=== PATIENT | male | born 1955 | race Caucasian/White ===

== ENCOUNTER → 2023-05-27 12:01 | Outpatient (CLI) | payer MEDICARE, SELFPAY ==
--- NOTE | ~2023-05-27 | XR_ITS ---
XR finger 4th LT min 2V DATE: 05/27/2023 12:21 INDICATION: Swelling at proximal interphalangeal joint. No injury. TECHNIQUE: 4 views COMPARISON: None FINDINGS: There is soft tissue swelling centered at the proximal interphalangeal joint. Erosions are suggested at the anterior base of the middle phalanx and posterolateral aspect of the he ad of the proximal phalanx. Proximal interphalangeal joint space is still intact. No fracture or dislocation, periosteal reaction or bone destruction is noted otherwise. No radiopaque soft tissue foreign body or subcutaneous emphysema. IMPRESSION: Soft tissue swelling of fourth digit centered at the PIP joint Erosive changes of the head of the proximal phalanx and base of the middle phalanx; consider erosive arthropathy, gout, less likely infection (due to intact joint space). Reviewed, dictated and finalized at location B. IMPRESSION: Soft tissue swelling of fourth digit centered at the PIP joint Erosive changes of the head of the proximal phalanx and base of the middle phal anx; consider erosive arthropathy, gout, less likely infection (due to intact j oint space).
== END ==
PROVIDERS: PCP Physician Assistant; Visit Provider Physician Assistant
DX: M79.89 Other specified soft tissue disorders (principal)
CPT/HCPCS: 73140

== ENCOUNTER 2023-09-09 06:44 | Day surgery (SDC) | payer MEDICARE, SELFPAY ==
[2023-08-26 11:06] VITALS: BMI 28.8
--- NOTE | 2023-08-30 09:13 | PC.NURSE ---
Spoke with patient regarding medication PLAVIX. Pt. verbalizes understanding that the last dose of PLAVIX is to be taken on 09/04/2023, the Endoscopist will instruct them when to restart after the procedure.
--- NOTE | 2023-09-07 14:20 | SUR.PREOP ---
Patient called regarding upcoming procedure. Reviewed preop instructions, appointment times, and procedure prep.
[2023-09-09 07:11] LABS: Glucose Point of Care 89 mg/dl (65-105)
[2023-09-09 07:14] VITALS: BP 139/75; PULSE 73; RESP 18; TEMP 36.1; O2SAT 100
[2023-09-09] MEDS: LACTATED RINGERS 1,000 ML 150 ML IV CONT (07:16)
[2023-09-09] MEDS: GENTAMICIN 80MG/SOD CHL 50 ML 80 MG/50 ML BAG 100 MG IVPB (07:17)
--- NOTE | 2023-09-09 07:38 | WPDANESEPPF ---
Anes - Initial Pre Proc Eval Procedure: Operation Date: 09/09/23 08:00 Proposed Procedures p Colonoscopy - Omega De La Fuente MD Date/Time: 09/09/23 07:38 Surgeon: Omega De La Fuente MD Pre Op Diagnosis: neoplasm screening Patient Data Age: 68 Gender: M Height: 1.78 m Weight: 88 kg Last Vital Signs Temp 97 F L 09/09/23 07:14 Pulse 73 09/09/23 07:14 Resp 18 09/09/23 07:14 BP 139/75 09/09/23 07:14 Pulse Ox 100 09/09/23 07:14 O2 Del Method Room Air 09/09/23 07:14 Allergies Allergy/AdvReac Type Severity Reaction Status Date / Time aspirin Allergy Severe Swelling Verified 09/09/23 07:10 of Lip/Tongue/Throat Home Medications Medication Instructions Recorded Confirmed Type carvedilol 6.25 mg tablet 6.25 mg PO BID 08/26/23 08/26/23 History clopidogrel 75 mg tablet 75 mg PO QAM 08/26/23 08/26/23 History empagliflozin 10 mg tablet 10 mg PO QAM 08/26/23 08/26/23 History (Jardiance) ferrous sulfate 325 mg (65 mg 325 mg PO 2XW 08/26/23 08/26/23 History iron) tablet (Iron (ferrous sulfate)) fluticasone furoate 100 1 inh inhalation QPM 08/26/23 08/26/23 History mcg-vilanterol 25 mcg/dose inhalation powder (Breo Ellipta) furosemide 40 mg tablet 40 mg PO QAM 08/26/23 08/26/23 History insulin degludec 100 unit/mL (3 22 unit subcut QA 08/26/23 08/26/23 History mL) subcutaneous pen isosorbide mononitrate 30 mg 30 mg PO DAILY 08/26/23 08/26/23 History tablet,extended release 24 hr levothyroxine 50 mcg tablet 50 mcg PO USEASDIRECTD 08/26/23 08/26/23 History loperamide 2 mg tablet 2 mg PO HS 08/26/23 08/26/23 History (Anti-Diarrheal (loperamide)) vfhmrxck-shhumujr-rxlwc acid 400 1 tablet PO DAILY 08/26/23 08/26/23 History mcg-vit K 20 mcg-lycop 300 mcg tablet (One-A-Day Men's Multivitamin) primidone 50 mg tablet 100 mg PO QPM 08/26/23 08/26/23 History primidone 50 mg tablet 150 mg PO QAM 08/26/23 08/26/23 History rosuvastatin 20 mg tablet 20 mg PO QPM 08/26/23 08/26/23 History topiramate 50 mg tablet 50 mg PO BID 08/26/23 08/26/23 History valsartan 320 mg tablet 320 mg PO DAILY 08/26/23 08/26/23 History Laboratory Tests 09/09/23 07:08 POC Capillary Glucose 89 mg/dl (65-105) Patient hx anesthesia problems: none Family hx anesthesia problems: none Results Review: All pre-operative results and documents have been reviewed as part of the pre-operative evaluation. [facility] Social History Social History Smoking status: Never smoker Alcohol intake: current Substance use: never Substance use type: does not use Living arrangements: with family Spiritual care concerns: No Anes - Eval Final PreProcedure Day of Procedure 09/09/23 07:38 Patient weight: normal Heart: regular rate and rhythm Lungs: clear to auscultation Airway: Mallampati scale class II Neurological: alert and oriented Last oral intake: >/= 8 hours ASA classification: III Emergent: no Anesthetic plan: proceed Anesthesia type and monitoring: general GIVS and standard monitoring Results Review: All pre-operative results and documents have been reviewed as part of the pre-operative evaluation. Informed Consent: The patient's anesthetic plan and its attendant risks and benefits were discussed with the patient/family/POA. Questions were solicited and answers provided to the satisfaction of the patient/family/POA.
[2023-09-09] MEDS: AMPICILLIN 2 GM/NS 100 ML 2 GM/100 ML BAG IVPB (08:00)
--- NOTE | 2023-09-09 08:08 | PM.HPGS ---
History of Present Illness History of Present Illness Consent: Risks, benefits, and alternatives have been discussed and questions answered. Patient agrees to proceed with procedure. Chief complaint: neoplasm screening Narrative: Mikael Rob is a 68 year old male with colon polyp 5 years ago Review of Systems Constitutional: Constitutional: Denies headache(s) and Denies weakness Eyes: Eyes: Denies blurry vision ENT: Reports Normal hearing present, Denies headache(s) and Denies neck pain Cardiovascular: Cardiovascular: Denies chest pain and Denies dyspnea Respiratory: Respiratory: Denies dyspnea Gastrointestinal: Gastrointestinal: Reports no additional gastrointestinal complaints Genitourinary: Genitourinary: Denies dysuria Musculoskeletal: Musculoskeletal: Denies neck pain Integumentary/Breasts: Skin/Breast: Denies dry skin Neurologic: Reports Normal hearing present, Denies headache(s) and Denies weakness Psychiatric: Psychiatric: Denies anxiety Endocrine: Endocrine: Denies change in body appearance Hematologic/Lymphatic: Hematologic/Lymphatic: Denies easy bleeding Allergic/Immunologic: Allergic/Immunologic: Denies urticaria [facility] Past Medical History Medical History (Updated 09/09/23 @ 08:09 by Omega De La Fuente MD) Colon polyp Social History Social History Smoking status: Never smoker Alcohol intake: current Substance use: never Substance use type: does not use Living arrangements: with family Spiritual care concerns: No Meds Home Medications and Allergies Home Medications Medication Instructions Recorded Confirmed Type carvedilol 6.25 mg tablet 6.25 mg PO BID 08/26/23 08/26/23 History clopidogrel 75 mg tablet 75 mg PO QAM 08/26/23 08/26/23 History empagliflozin 10 mg tablet 10 mg PO QAM 08/26/23 08/26/23 History (Jardiance) ferrous sulfate 325 mg (65 mg 325 mg PO 2XW 08/26/23 08/26/23 History iron) tablet (Iron (ferrous sulfate)) fluticasone furoate 100 1 inh inhalation QPM 08/26/23 08/26/23 History mcg-vilanterol 25 mcg/dose inhalation powder (Breo Ellipta) furosemide 40 mg tablet 40 mg PO QAM 08/26/23 08/26/23 History insulin degludec 100 unit/mL (3 22 unit subcut QAM 08/26/23 08/26/23 History mL) subcutaneous pen isosorbide mononitrate 30 mg 30 mg PO DAILY 08/26/23 08/26/23 History tablet,extended release 24 hr levothyroxine 50 mcg tablet 50 mcg PO USEASDIRECTD 08/26/23 08/26/23 History loperamide 2 mg tablet 2 mg PO HS 08/26/23 08/26/23 History (Anti-Diarrheal (loperamide)) mkoucucs-rqizlocc-wntvb acid 400 1 tablet PO DAILY 08/26/23 08/26/23 History mcg-vit K 20 mcg-lycop 300 mcg tablet (One-A-Day Men's Multivitamin) primidone 50 mg tablet 100 mg PO QPM 08/26/23 08/26/23 History primidone 50 mg tablet 150 mg PO QAM 08/26/23 08/26/23 History rosuvastatin 20 mg tablet 20 mg PO QPM 08/26/23 08/26/23 History topiramate 50 mg tablet 50 mg PO BID 08/26/23 08/26/23 History valsartan 320 mg tablet 320 mg PO DAILY 08/26/23 08/26/23 History Allergies Allergy/AdvReac Type Severity Reaction Status Date / Time aspirin Allergy Severe Swelling Verified 09/09/23 07:10 of Lip/Tongue/Throat Vital Signs Vital Signs - 24 hr 09/09/23 07:14 Temperature 97 F L Pulse Rate 73 Respiratory Rate 18 Blood Pressure 139/75 Pulse Oximetry 100 Oxygen Delivery Room Air Exam Const: General: comfortable and no acute distress HENMT: Face/Nose/Sinus: Normal nares present Eyes: General: appearance normal, both eyes and all related structures Neck: Neck: no JVD Resp: Auscultation: clear to auscultation bilaterally Cardio: Rate: regular rate Rhythm: regular rhythm GI: Inspection: non-distended GI Palp: Yes Soft to palpation Skin: General skin exam: normal color Neuro: General: gait normal Speech: normal speech Extrem: General: normal to inspection Psych: Mental Status: mental status grossly
[2023-09-09 08:32] VITALS: BP 98/61; PULSE 72; RESP 19; O2SAT 100
[2023-09-09 08:42] VITALS: BP 106/63; PULSE 65; RESP 16; O2SAT 100
[2023-09-09 08:52] VITALS: BP 121/68; PULSE 63; RESP 16; O2SAT 100
[2023-09-09 08:54] LABS: Glucose Point of Care 84 mg/dl (65-105)
== END 2023-09-09 08:55 | disposition home or self-care (01) ==
PROVIDERS: PCP Physician Assistant; Visit Provider Internal Medicine Gastroenterology
PROC: 0DJD8ZZ Inspection of Lower Intestinal Tract, Via Natural or Artificial Opening Endoscopic (ICD-10-PCS; CPT 45378; principal; 2023-09-09 08:00)
DX: Z12.11 Encounter for screening for malignant neoplasm of colon (principal); Z86.010 Personal history of colon polyps; K57.30 Diverticulosis of large intestine without perforation or abscess without bleeding
CPT/HCPCS: G0105; 82948; J0290; J1580; J2704; J7120

== ENCOUNTER 2024-06-23 07:55 | Outpatient (CLI) | payer MEDICARE, SELFPAY ==
--- NOTE | ~2024-06-23 | XR_ITS ---
XR hip RT min 3V w AP pelvis DATE: 06/23/2024 08:50 INDICATION: Right hip pain TECHNIQUE: AP pelvis. AP and lateral views of right hip COMPARISON: None FINDINGS: There is a catheter overlying the right abdomen, lateral right pelvic area and right inguin al region. Surgical clips overlie the left inguinal area. No pelvic fracture or bone destruction. Normal alignment at the pubic symphysis and sacral iliac join ts. Hip joint spaces are symmetric and relatively preserved. No fracture or dislocation, avascular necrosis or bone destruction of the right hip. IMPRESSION: No pelvic or right hip fracture or dislocation Reviewed, dictated and finalized at location A. MATOLOGY NURSE
--- NOTE | ~2024-06-23 | XR_ITS ---
EXAM: XR lumbar spine 2-3V DATE: 06/23/2024 08:50 HISTORY: Pain in right hip . COMPARISON: None available. FINDINGS: AP shunt tubing traverses the right abdomen. Thin wire projects over the upper abdomen 5 no nrib-bearing lumbar-type vertebral bodies. Pedicles intact. One-2 mm retrolisthesis at L3-4. 4 mm ret rolisthesis at L4-5. 8 mm anterolisthesis at L5-S1. Vertebral body heights preserved. Multilevel mode rate disc space narrowing and marginal osteophytosis. Severe lower lumbar facet arthropathy. Likely p ars defects at L5. Unfused L5 posterior arch No fracture or dislocation. 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 Likely bilateral L5 pars defects, this could be confirmed with oblique views or lumbar spine CT/MRI. Multilevel mild lumbar degenerativ e disc disease. Severe lower lumbar facet arthropathy. Reviewed, dictated and finalized at location K. 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 Likely bilat eral L5 pars defects, this could be confirmed with oblique views or lumbar spin e CT/MRI. Multilevel mild lumbar degenerative disc disease. Severe lower lumbar facet arthropathy.
== END 2024-06-23 07:56 | disposition home or self-care (01) ==
PROVIDERS: PCP Physician Assistant; Visit Provider Physician Assistant
DX: M25.551 Pain in right hip (principal)
CPT/HCPCS: 72100; 73502

== ENCOUNTER 2024-10-05 10:13 | Outpatient (CLI) | payer MEDICARE, SELFPAY ==
--- NOTE | ~2024-10-05 | XR_ITS ---
Clinical Indication: Cough PA and lateral views of the chest: Comparison: None Findings: The lungs are clear, without evidence of focal consolidation or pleural effusion. Cardiome diastinal silhouette is mildly prominent, status post aortic valve replacement. Bones and soft tissue s are unremarkable. BIOLOGY SPECIALIST shunt noted. Impression: Clear lungs. Status post aortic valve replacement. BIOLOGY SPECIALIST shunt. Reviewed, dictated and finalized at location . Impression: Clear lungs. Status post aortic valve replacement. BIOLOGY SPECIALIST shunt.
== END 2024-10-05 10:14 | disposition home or self-care (01) ==
PROVIDERS: PCP Physician Assistant; Visit Provider Physician Assistant
DX: R05.9 Cough, unspecified (principal); Z95.2 Presence of prosthetic heart valve; Z98.2 Presence of cerebrospinal fluid drainage device
CPT/HCPCS: 71046

== ENCOUNTER 2025-02-20 13:10 | Outpatient (CLI) | payer MEDICARE, SELFPAY ==
--- NOTE | ~2025-02-20 | US_ITS ---
Renal-Bladder ultrasound Clinical History: Abnormal renal function studies Technique: Real-time sonographic imaging of the kidneys and urinary bladder was performed. Findings: The right kidney measures 10.5 cm in length and the left kidney measures 10.7 cm. There is no hydronephrosis or renal calculus identified. Renal cortical echogenicity is mildly increased. No r enal mass lesion is identified. The urinary bladder is moderately distended at the time of this exam. No intraluminal echoes are iden tified. No abnormal wall thickening is seen. Impression: Echogenic kidneys suggest chronic medical renal disease. Reviewed, dictated and finalized at location . Impression: Echogenic kidneys suggest chronic medical renal disease.
== END 2025-02-20 13:11 | disposition home or self-care (01) ==
LOC: MICIMG 13:11
PROVIDERS: PCP Physician Assistant; Visit Provider Internal Medicine Nephrology
DX: R94.4 Abnormal results of kidney function studies (principal)
CPT/HCPCS: 76775

== ENCOUNTER 2025-07-15 07:46 | Outpatient (CLI) | payer MEDICARE, SELFPAY ==
--- OUTSIDE RECORDS SUMMARY | 2024-05-07 08:15 | XMS_ITS ---
Author Organization [facility] Address [address] [place] [address] Care Team Providers Care Mandrel Press Hand Name Role Phone Luis CarlosNasra gonzalezhit Unavailable [phone] Encounters Encounter Location Date Provider Diagnosis [facility] [place] [facility] [address] [place] [address] 05/07/2024 Mary Garces Plan Of Treatment No Information Progress Notes * EVIJULIDOB: (70 yo M)Acc No.[id number]:05/07/2024 Progress Notes Patient: JULI MYERS Provider: Arabella GARCES M.D :1955 A ge:69 Y S ex:Male Date:05/07/2024 [facility] Subjective: * Chief Complaints: * * Medical History: Objective: * Vitals: Assessment: Plan: * Treatment: * Billing Information: * Visit Code: * Procedure Codes: * Electronic signature of Arabella Garces MD on 07/15/2025 at 07:54 AM DRUM PLATER Sign off status: Pending * Provider: Arabella GARCES M.D Date: Generated for Vitai bryan/Anthony/eTransmitting on: 09/15/2024 07:54 AM DRUM PLATER
--- OUTSIDE RECORDS SUMMARY | 2024-06-04 09:30 | XMS_ITS ---
Author Organization [facility] Address [address] [facility] [address] [facility] [address] [place] [address] Care Team Providers Care Laminated Plastics Assembler And Gluer Name Role Phone Luis Carlos Mary Unavailable [phone] dewitt 05/07/24 Encounters Encounter Location Date Provider Diagnosis [place] [facility] [address] [facility] [address] [place] [address] 06/04/2024 Mary Garces Plan Of Treatment No Information Progress Notes * EVI JULIDOB: 7 (70 yo M)Acc No.[id number]:06/04/2024 Progress Notes Patient: JULI MYERS Provider: Arabella GARCES M.D :1955 A ge:69 Y S ex:Male Date:06/04/2024 [facility] Subjective: * Chief Complaints: * [address] dewitt 05/07/24. * Medical History: Objective: * Vitals: Assessment: Plan: * Treatment: * Billing Information: * Visit Code: * Procedure Codes: * Electronic signature of Arabella Garces MD on 07/15/2025 at 07:53 AM ALTERATIONS MANAGER Sign off status: Pending * Provider: Arabella GARCES M.D Date: 08/04/2023 Generated for Pierre adams/Anthony/Julian on: 09/15/2024 07:53 AM ALTERATIONS MANAGER
--- NOTE | 2025-07-15 07:54 | ECG_ITS ---
Test Date: 2025-07-15 08:03:09 Measurements Intervals [place] Rate: 92 P: 50 MI: 220 QRS: -61 QRSD: 108 T: 86 QT: 360 QTc: 447 Interpretive Statements SINUS RHYTHM WITH FIRST DEGREE AV BLOCK MISSING LEAD V1 LEFT ANTERIOR FASCICULAR BLOCK BORDERLINE ST-T WAVE ABNORMALITY- HIGH LATERAL LEADS BASELINE ARTIFACT- I, AVL ABNORMAL ECG No previous ECG available for comparison Electronically Signed On 07-15-2025 09:08:54 EXERCISE SCIENTIST by Eduardo Quevedo D.O.
--- OUTSIDE RECORDS SUMMARY | 2025-07-15 07:54 | XMS_ITS | Clinical Summary ---
Author Organization [facility] A Address [address] [place] [address] Care Team Providers Care Reverse Unit Operator Fisherman Name Role Phone Ty Jin MD Primary Care Provi dwaine Allergies Active Allergy Reactions Criticality Noted Date Comments Aspirin Swelling,Anaphylaxis High Reaction: swelling, , Reaction: ANAPHYLAXIS, , Doxycycline Rash Reaction: rash, Levofloxacin Unknown Lisinopril Cough Reaction: cough, Medications atorvastatin (LIPITOR) 20 mg tablet TAKE ONE TABLET BY MOUTH ONCE DAILY 30 11 03/01/20 14 Active metoprolol (LOPRESSOR) 50 mg tablet take 1 tablet by oral route 2 times every day with meals 120 11 09/05/19 16 Active Additional Information Patient taking differently:50 mg,Per pt taking half tab in the morning and half tab in the evening, Reported on 07/01/2017 losartan (COZAAR) 100 mg tablet TAKE 1/2 TABLET BY MOUTH ONCE DAILY 90 5 08/11/19 14 Active Additional Information Patient taking differently:100 mgoral Daily, Reported on 06/24/2017 primidone (MYSOLINE) 50 mg tablet TAKE THREE TABLETS BY MOUTH IN THE MORNING AND TWO IN THE EVENING 150 tablet 3 02/22/20 17 Active Additional Information Patient taking differently: 50 mg by mouth 2 times per day, Reported on 06/24/2017 topiramate (TOPAMAX) 25 mg tablet Take 25 mg by mouth 2 (two) times a day. Active cholecalciferol (VITAMIN D3) 2,000 unit capsule Take 2,000 Units by mouth daily. Active blood glucose diagnostic (glucose blood) strip Check blood sugar three times daily 300 each 11 07/01/20 17 Active levothyroxine (SYNTHROID, LEVOTHROID) 50 mcg tablet Take 50 mcg by mouth daily. Active fluticasone-vane anterol (BREO ELLIPTA) 100-25 mcg/dose diskus inhaler Inhale 1 puff daily. Rinse mouth with water after use to reduce aftertaste and incidence of candidiasis. Do not swallow. Active clopidogrel (PLAVIX) 75 mg tablet Take 75 mg by mouth daily. Active furosemide (LASIX) 20 mg tablet Take 20 mg by mouth daily Active isosorbide mononitrate ER (IMDUR) 30 mg 24 hr tablet Take 30 mg by mouth daily Active empagliflozin (JARDIANCE) 10 mg tabletIndicatio ns:type 2 diabetes mellitus 10 mg daily Active ferrous sulfate ER 324 mg (65 mg iron) EC tabletIndicatio ns:Iron Deficiency Anemia Take 65 mg by mouth 1 tablet Tuesday, Tuesday, and Tuesday Active TRESIBA 100 unit/mL (3 mL) pen for injection INJECT 26 UNITS SUBCUTANEOUSLY ONCE DAILY 15 mL 04/27/20 21 Active Active Problems Problem Noted Date Diagnosed Date Hyperlipidemia associated with type 2 diabetes m willitus 10/15/2020 Assessment & Plan (10/15/2020 9:43 PM CDT): Lab Results Component Value Date LDLCALC 73 08/08/2019 Goal on atorvastatin. Labs with primary MD. Personal history of colonic polyps 03/21/2019 Overview (03/21/2019): Added automatically from request for surgery [id number] Acquired hypothyroidism 09/30/2017 Assessment & Plan (10/15/2020 9:40 PM CDT): Lab Results Component Value Date TSH 1.73 08/08/2019 Biochemically euthyroid Continue levothyroxine 50 mcg daily TSH annually. Assessment & Plan (04/02/2019 11:29 AM CDT): Biochemically euthyroid. Continue levothyroxine 50 mcg 5 days a week and 75 mcg on Saturdays. TSH next visit. Assessment & Plan (05/09/2018 11:33 AM CDT): Biochemically euthyroid, TSH was 2.4 in December 2017. Continue Synthroid 50 mcg 5 days a week and 75 mcg on Tuesday and Sundays. Will repeat TSH next visit Assessment & Plan (01/06/2018 9:52 AM CDT): Continue levothyroxine 50 mcg 5 days a week and 75 mcg on Tuesday and Tuesday. TSH today. Dose adjustment based on above. Monitor q.6 months if biochemically euthyroid Assessment & Plan (09/30/2017 10:23 AM TRAIN CLERK): Continue levothyroxine 50 mcg daily. TSH today. Monitor q.6 months if biochemically euthyroid History of aortic valve replacement 07/21/2017 BMI 31.0-31.9,adult 05/05/2017 Assessment & Plan (05/09/2018 11:32 AM CDT): BMI Follow-up includes: nutrition counseling and exercise counseling. Assessment & Plan (01/06/2018 9:52 AM CDT): BMI Follow-up includes: nutrition counseling, exercise counseling and education provided. Assessment & Plan (09/30/2017 10:18 AM TRAIN CLERK): BMI Follow-up includes: nutrition counseling and exercise counseling. Assessment & Plan (07/04/2017 10:42 AM TRAIN CLERK): Body mass index is 30.33 kg/m . He is following a consistent carb diet. Assessment & Plan (05/05/2017 2:19 PM CDT): BMI Follow-up includes: nutrition counseling and exercise counseling. Mixed hyperlipidemia 03/05/2017 Assessment & Plan (04/02/2019 11:29 AM CDT): At goal on atorvastatin Assessment & Plan (05/09/2018 11:32 AM CDT): Well control on atorvastatin. Will check lipids. Assessment & Plan (01/06/2018 9:50 AM CDT): Well control on atorvastatin Assessment & Plan (09/30/2017 10:19 AM TRAIN CLERK): LDL at goal on atorvastatin. Assessment & Plan (07/04/2017 10:42 AM TRAIN CLERK): Currently on atorvastatin. Assessment & Plan (05/05/2017 2:20 PM CDT): LDL at goal on atorvastatin. Assessment & Plan (03/05/2017 4:23 PM CDT): Controlled on atorvastatin. Vitamin D deficiency 02/25/2017 Assessment & Plan (01/08/2018 9:10 AM CDT): Continue vitamin-D 2000 units daily. Re-evaluate in 3 months Assessment & Plan (07/04/2017 10:46 AM TRAIN CLERK): He is currently on [id number] vitamin D 1000 units daily. Will continue with the current dose. Assessment & Plan (03/05/2017 4:24 PM CDT): OTC vitamin-D 1000 units daily. Will check level. Essential tremor 08/24/2016 Overview (10/29/2016): Essential tremor Aortic valve stenosis 05/07/2016 Overview (10/29/2016): Aortic valve stenosis Type 2 diabetes mellitus 04/27/2016 Overview (10/29/2016): DMII WO CMP NT ST UNCNTR Assessment & Plan (10/15/2020 9:42 PM CDT): Well controlled, hemoglobin A1c is 6.4%. 1. Continue Tresiba 26 units daily. 2. Continue Januvia 25 mg daily. 3. Continue Jardiance 10 mg daily. 4. Consistent carb diet. 5. Keep well hydrated while on Jardiance. 6. Check blood sugars b.i.d.. 7. Hemoglobin A1c in 3 months with primary MD. 8. He will return for follow-up with me as needed. . Assessment & Plan (04/02/2019 11:30 AM CDT): Well controlled, hemoglobin A1c is 5.4%. Decrease Tresiba to 28 units daily. Advised to decrease by 2 units if fasting blood sugars are below 90. Continue Januvia 25 mg daily. SMBG b.i.d. Consistent carb diet and exercise as tolerated. RTC in 4 months. Assessment & Plan (05/09/2018 11:31 AM CDT): Well controlled, hemoglobin A1c is 5.9%. Will make no changes in current regimen. Continue Tresiba 30 units daily and Tradjenta 5 mg daily. Dietary recommendations for ADA diet. Regular aerobic exercise. Discussed ways to avoid symptomatic hypoglycemia. Discussed sick day management. Discussed foot care. Reminded to get yearly retinal exam. Diabetes will be reassessed 4 months. Assessment & Plan (01/08/2018 9:09 AM CDT): Well controlled, hemoglobin A1c is 5.7%. --continue Tresiba 30 units daily and Tradjenta 5 mg daily -consistent carb diet. --SMBG b.i.d.. --advised to call if blood sugars are below 70. --annual dilated eye exam. --RTC in 4 month Assessment & Plan (09/30/2017 10:20 AM TRAIN CLERK): Well controlled, hemoglobin A1c is 6% last visit. Glucose log reviewed, blood sugars are in good range. --will DC Levemir. --start Tresiba as follows: --20 units of Tresiba tomorrow morning, increase to 30 units daily starting on Tuesday. --continue Tradjenta 5 mg daily. --SMBG b.i.d. and send log in 2 weeks. --consistent carb diet and exercise as tolerated. --advised to call if having lows. --RTC in 3 months Assessment & Plan (07/04/2017 10:45 AM TRAIN CLERK): Patient has a history of diabetes diagnosed in 2005. His diabetes is complicated by peripheral neuropathy, left foot diabetic ulcer/lytes/osteomyelitis in May 2016 and chronic left lower extremity swelling. Recent hemoglobin A1c in April 2017 was 6.0%. Blood glucose logs reviewed. His control is stable. He is currently on Levemir insulin 20 units in the morning and 10 units in the evening along with Tradjenta 5 mg once daily. Will continue the current treatment regimen. Educated to check blood glucose twice daily. Instructed to call with blood glucose less than 70 consistently. Educated to follow consistent carb diet. Assessment & Plan (05/05/2017 2:22 PM CDT): Improved glycemic control. POC hemoglobin A1c is 6.0 % today. Occasional fasting hypoglycemic episodes. 1. Decrease Levemir to 10 units at bedtime. If bedtime blood sugar is above 200, take 14 units of Levemir. 2. Continue Levemir 20 units in the mornings. 3. Continue Tradjenta 5 milligram daily. 4. If morning blood sugars are below 90 , decrease Levemir to 8 units at bedtime. 5. Check blood sugars before breakfast, dinner and bedtime and send log in 1 month. 6. Follow-up in 3 months. Assessment & Plan (03/05/2017 4:25 PM CDT): 61 years old male with history of chronic kidney disease, hypertension and hyperlipidemia seen in consultation for uncontrolled type 2 diabetes mellitus. Hemoglobin A1c was 7.9% in November 2016. Diabetes is complicated by peripheral neuropathy and history of diabetic foot ulcer. He is on Levemir 34 units daily. Blood sugars are mostly in the 200s. 1. Will change Levemir to 20 units b.i.d.. 2. Start Tradjenta 5 mg daily to control postprandial hyperglycemia. 3. Advised to monitor blood sugar bid and send log in 2 weeks. 4. Consistent carbs diet and exercise as tolerated. 5. Annual dilated eye exam. 6. Follow-up in 2 months. Benign hypertension with CKD (chronic kidney disease) stage III 04/27/2016 Overview (10/29/2016): BENIGN HYPERTENSION Assessment & Plan (10/15/2020 9:42 PM CDT): Stable on losartan and metoprolol. Continue low-salt diet and exercise as tolerated. Assessment & Plan (09/30/2017 10:19 AM TRAIN CLERK): Stable on current regimen. Assessment & Plan (07/04/2017 10:41 AM TRAIN CLERK): BP is stable. Assessment & Plan (05/05/2017 2:20 PM CDT): Stable on current regimen. Assessment & Plan (03/05/2017 4:22 PM CDT): Well controlled on losartan and metoprolol. Asthma 12/08/2013 Overview (10/27/2016): ASTHMA NOS Resolved Problems Problem Noted Date Diagnosed Date Resolved Date Hypertension associated with chronic kidney disease due to type 1 diabetes mellitus 01/06/2018 12/07/2019 Assessment & Plan (04/02/2019 11:28 AM CDT): Hypertension is well controlled on current regimen. Assessment & Plan (05/09/2018 11:31 AM CDT): Stable on current regimen Dietary sodium restriction. Weight loss. Regular aerobic exercise. Assessment & Plan (01/06/2018 9:51 AM CDT): Stable on losartan and metoprolol. Immunizations Immunization Administration Dates Next Due Influenza, Quadrivalent, Spl it, Preservative Free, Intradermal 05/07/2016 Pneumococcal Polysaccharide PPV23 03/19/2014 TD Preservative Free 06/18/2016 Surgical History Surgery Date Site/Laterality Comments OTHER SURGICAL HISTORY 07/25/2011 - 07/24/2012 Er Visit-Diabetes/esophageal infection OTHER SURGICAL HISTORY BL CTS surgery CARPAL TUNNEL RELEASE Carpal tunnel release COLONOSCOPY 09/12/2009 Medical History Medical History Date Comments Hx Other Medical FX r metacarpal bone Hx Other Medical MRSA Asthma Asthma; Comments : [facility] 03/26/2014 - Hypertension Hypertension Hx Other Medical Diabetes; Comme nts: [facility] 03/26/2014 - Type 2 diabetes mellitus Diabete s type 2 Asthma Asthma Hx Other Medical vomitting, diar rehea, could not eat; Comments: [facility] 09/13/2014 - Hx Other Medical Sinus surgery Hx Other Medical pic line placme nt Hx Other Medical cellulitis Hx Other Medical 11/04/2016 dehydration uns table confused in [place]; Comments: [facility] 12/16/2016 - CKD (chronic kidney disease) , stage III (HCC) Hyperlipidemia Hypothyroidism Sleep apnea Family History Medical History Relation Name Comments COPD Father COPD; Lung cancer Mother Cancer -lung; C ause of : Cancer -lung Cancer Other 1 Family history of Cancer; Hypertension Other 2 Family history of Hypertension; Relation Name Status Comments Father Mother Other 1 Other 2 Social History Tobacco Use Types Packs/Day Years Used Date Smoking Tobacco: Never Smokeless Tobacco: Never Alcohol Use Standard Drinks/Week Comments Yes 0 (1 standard drink = 0.6 oz pur e alcohol) rarely PHQ-2 Answer Date Recorded PHQ-2 Total Score (If total score is 3 or more points, staff should administer the PHQ-9) 0 10/14/2020 Sex and Gender Information Value Date Recorded Sex Assigned at Not on file Legal Sex Male 6:28 PM TRAIN CLERK Gender Identity Not on file Sexual Orientation Not on file Last Filed Vital Signs Vital Sign Reading Time Taken Comments Blood Pressure 132/60 10/14/2020 3:30 PM CDT Pulse 66 10/14/2020 3:30 PM CDT Temperature 36.5 C (97.7 F) 10/14/2020 3:30 PM CDT Respiratory Rate 14 10/14/2020 3:30 PM CDT Oxygen Saturation 100% 05/04/2019 11:20 AM CDT Inhaled Oxygen Concentration - - Weight 94.8 kg (209 lb) 10/14/2020 3:30 PM CDT Height 177.8 cm (5' 10) 10/14/2020 3:30 PM CDT Body Mass Index 29.99 10/14/2020 3:30 PM CDT Plan of Treatment Not on file Insurance MED[employer]ARE [employer] [place] [address] [employer] MEDICARE Advance Directives For more information, please contact: [phone] * Full Code (Latest Code Status on File) Date Activated Date Inactivated Comments 05/04/2019 8:47 AM 05/04/2019 3:42 PM * Full Code Date Activated Date Inactivated Comments 05/04/2019 8:47 AM 05/04/2019 8:47 AM Care Teams Reverse Unit Operator Fisherman Relationship Specialty Start Date End Date Ty Jin MD PCP - General 05/31/17
--- OUTSIDE RECORDS SUMMARY | 2025-07-15 07:54 | XMS_ITS | Data Portability ---
Author Organization [place] [facility],, Yaritza carson Address [address] [place] [address] Assessment Encounter Date Assessment Date Assessment LastModified by Organization Details LastModified Time 09/14/2019 09/14/2019 In the setting o f severe persistent asthma which is uncontrolled on Brio, montelukast and rescue inhalers and in the setting of nasal polyps with rhinosinusitis I think Dupilumab would be the perfect drug for both these conditions. It is unclear to me why he did not get approved last attempt but he fulfills criteria for asthma as well as sinus disease [email or web address] Not available 09/14/2019 14:57:56 Plan of Treatment Reminders Order Date Submit Date Provider Last Modified By Organization Details Last Modified Time Details Appointments None recorded. Lab None recorded. Referral None recorded. Procedures None recorded. Surgeries None recorded. Imaging None recorded. Medication Orders montelukas t 10 mg tablet 2018 019 INTERFACE [facility], [address] [place] [address], [id number], 9 09:57:06 Patient TargetsNo targets recorded. Patient Instructions Encounter Date Encounter Id Patient Instructions Last Modified By Organization Details Last Modified Time 07/07/2019 [id number] controlling your asthma: care instructions [email or web address] Not available 07/07/2019 09:25:17 learning about asthma [email or web address] Not available 07/07/2019 09:25:17 spirometry testing* BETTY Not available 07/07/2019 10:28:56 asthma control test* [email or web address] Not available 07/07/2019 09:25:17 09/14/2019 [id number] controlling your asthma: care instructions [email or web address] Not available 09/14/2019 14:58:37 learning about asthma [email or web address] Not available 09/14/2019 14:58:38 spirometry testing* BETTY Not available 09/14/2019 17:05:22 Reason for Referral None Reported. Results Created Date Observation Date Name Description Value Unit Range Abnormal Flag Note LastModifiedBy Organization Detail LastModifiedTime 07/07/20 19 07/07/2019 asthm a contr ol test* Asthma 25 Not Available [facility] [address], [place], [address], 07/07/2019 09:21:00 07/07/20 19 07/07/2019 jarrell metry testi ng* fev1 57 Not Available [facility] [address], [place], [address], 07/07/2019 09:20:58 07/07/20 19 07/07/2019 jarrell metry testi ng* fvc 58 Not Available [facility] [address] [facility] [address], [place], [address], 07/07/2019 09:20:58 07/07/20 19 07/07/2019 jarrell metry testi ng* % reversibilit y 10 Not Available [facility] [address] [facility] [address], [place], [address], 07/07/2019 09:20:58 09/14/19 20 09/14/2019 jarrell metry testi ng* fev1 61 Not Available [facility] [address] [facility] [address], [place], [address], 09/14/2019 13:23:26 09/14/19 20 09/14/2019 jarrell metry testi ng* fvc 65 Not Available [facility] [address] [facility] [address], [place], [address], 09/14/2019 13:23:26 09/14/19 20 09/14/2019 jarrell metry testi ng* % reversibilit y Not Available [facility] [address] [facility] [address], [place], [address], 09/14/2019 13:23:26 07/07/20 19 jarrell metry testi ng* No observ ation record ed. [email or web address] Not Available 11:13:42 09/14/19 20 jarrell metry testi ng* No observ ation record ed. [email or web address] Not Available 15:04:36 09/14/19 20 jarrell metry testi ng* No observ ation record ed. [email or web address] Not Available 15:04:36 09/14/19 20 jarrell metry testi ng* No observ ation record ed. [email or web address] Not Available 15:04:36 Result Notes None recorded. Problems Name Problem SNOMED Code Status Onset Date Resolution Date Notes Provider Name and Address Organization Details Recorded Time Asthma 067914571 Active [address], [place], [address] , [place] [facility], 9 09:11:14 Aspirin exacerbated respiratory disease 9506284932405 9108 Active [address], [place], [address] , [place] [facility], 9 09:11:26 Coronary arterioscle rosis 43812692 Active [address], [place], [address] , [place] [facility], 9 09:11:34 Diabetes mellitus 88519059 Active [address], [place], [address] , [place] [facility], 9 09:11:55 Sinusitis co-occurren t with nasal polyps 8595366514329 2 Active [address], [place], [address] , [place] [facility], 9 09:13:32 Problem Notes None recorded. Medical Equipment None Reported. Allergies Allergen ID Allergen Name Allergen Category Reaction Reaction Severity Criticality Documentation Date Start Date Code Code System Note Provider Name and Address Organization Details Recorded Time 19775 aspirin medicatio n other Not available Not available 07/07/2019 1191 RxNorm Swell ing Fanny [facility], [place] [facility], 9 09:03:18 Medications Name Sig Start Date Stop Date Status Note LastModified by Organization Details LastModified Time amoxicillin 500 mg capsule active Not Available Not Available Not Available furosemide 40 mg tablet active Not Available Not Available No t Available atorvastatin 40 mg tablet active Not Available Not Available Not Available primidone 50 mg tablet active Not Available Not Available No t Available doxycycline hyclate 100 mg capsule active Not Available Not Available N ot Available atorvastatin 20 mg tablet active Not Available Not Available Not Available isosorbide mononitrate ER 30 mg tablet,extend ed release 24 hr active Not Available Not Available Not Available topiramate 25 mg tablet active Not Available Not Available No t Available clopidogrel 75 mg tablet active Not Available Not Available Not Available levothyroxine 50 mcg tablet active Not Available Not Availabl e Not Available metoprolol tartrate 50 mg tablet active Not Available Not Available No t Available montelukast 10 mg tablet Take 1 tablet by mouth once daily active Not Available Not Available No t Available losartan 100 mg tablet active Not Available Not Available No t Available amoxicillin 875 mg-potassium clavulanate 125 mg tablet 07/07 completed Not Available Not Available Not Available azithromycin 500 mg tablet 07/07 completed Not Available Not Available Not Available Januvia 25 mg tablet 07/07 completed Not Available Not Available Not Available Breo Ellipta 100 mcg-25 mcg/dose powder for inhalation active Not Available Not Available N ot Available Jublia 10 % topical solution, applicator active Not Available Not Available N ot Available Jardiance 10 mg tablet active Not Available Not Available No t Available Tresiba FlexTouch U-100 insulin 100 unit/mL (3 mL) subcutaneous pen active Not Available Not Available Not Available Shingrix (PF) 50 mcg/0.5 mL intramuscular suspension, kit active Not Available Not Available Not Available Flublok Quad (PF) 180 mcg (45 mcg x 4)/0.5 mL IM syringe active Not Available Not Available Not Available Vitals Date Recorded Body height Body mass index (BMI) Body weight Heart rate Oxygen saturation Respiratory rate Body temperature Systolic And Diastolic Provider Name and Address Organization Details Last Updated DateTime 0 175.26 cm 31.6 kg/m2 85563.7 7 g 68 /min 97 % 17 /min 98 [degF] 138/80 mm[Hg] yesica pendleton [place] [facility], 0 13:13:08 Date Recorded Body height Body mass index (BMI) Body weight Body temperature Systolic And Diastolic Provider Name and Address Organization Details Last Updated DateTime 07/07/2019 175.26 cm 31.6 kg/m2 25475.7 7 g 98.2 [degF] 130/70 mm[Hg] Subhash Verdin [place] [facility], 9 09:02:50 Social History None recorded. Functional Status None recorded. Mental Status None recorded. Family History Relationship Description Onset Age of this Age Resolved Age Notes LastModified by Organization Details LastModified Time Mother Malignant neoplasm of lung 68 [email or web address] Not available 2018 09:04:06 Father Problem 82 [email or web address] Not available 1 09/07/2018 09:04:13 Medical History Condition Response Diabetes N Anxiety Disorder N Coronary Artery Disease N Gout N Arthritis N Kidney Stones N Hyperthyroidism N Tuberculosis N Cancer N Diverticulitis N Stroke N Asthma N Allergies N COPD N Depression N Stress N Hypothyroidism Y GERD/Reflux N High Cholesterol N Liver Disease N Heart Disease N Pulmonary Embolism N Fibromyalgia N Hypertension Y Osteoporosis N Kidney Disease N Past Encounters Encounter ID Performer Location Encounter Start Date Encounter Closed Date Diagnosis/Indication Diagnosis SNOMED-CT Code Diagnosis ICD10 Code Diagnosis IMO Codes Diagnosis Note [id number] Jayson saleem MD OFFICE [address] [place] [id number] 07/07/2019 08:47:14 07/07/2019 10:20:34 Sinusitis co-occurrent with nasal polyps 9766730993 9102 J32.9 Patient with the syndrome of aspirin sensitivit y, nasal polyps, and asthma. His nasal polyps have been bothersome . He has had 3 sinus surgeries I think that Dupilumab would be quite beneficial in this setting. Will attempt to get him approved. Asthma 573248290 J45.40 [id number] Jayson saleem MD OFFICE [address] [place] [phone] 09/14/2019 12:53:01 09/14/2019 13:53:30 Sinusitis co-occurrent with nasal polyps 6701455055 9102 J32.9 Asthma 652750413 J45.40 Persistent sinus symptoms with nasal polyps resulting in loss of smell and recurring congestion . Will continue on his present steroid flushes and attempt to get him approved for Dupilumab. Health Concerns Section Related Observation LastModified by Organization Detai ls LastModified Time None Recorded Concern Status LastModified by Organization Details LastModified Time None Recorded Advance Directives Directive None Recorded Payers Insurance Date Sequence Insurance Name Policy Number Policy Parry Covered Member ID Parry Member ID Guarantor Name 07/07/2019 2 [employer] - OPEN ACCESS 3 [id number] Mikael Rob [id number] Mikael Uriarte Darron 09/04/2019 1 [place] Mikael Rob [id number] Mikael Rob 07/07/2019 2 [employer] - DOS PRIOR TO 21 - [facility] BENEFITS PLAN [id number] Mikael Rob [id number] Mikael Rob 09/04/2019 [employer] - DMEPOS ASSIGNED (MEDICARE DME REGION B) Mikael Rob [id number] Mikael Rob Notes Date Note Type Note Provider Name and Address Organization Details Recorded Time 07/07/2019 text/html ACT TestReported by PatientACT TestFor asthma control test, patient reportsin the past 4 weeks, how much time did your asthma keep you from getting as much done as you would like? (5),how often have you had shortness of breath5,how often did your asthma symptoms wake you up4,how often did you use your rescue inhaler5,how would you rate your asthma control5, andtotal score 25. Mikael is a delightful 64-year-old gentleman with a history of coronary artery disease, type 2 diabetes, aspirin sensitive asthma, and recurring nasal polyps. He has had 3 sinus surgeries and continues to have significant problems with his nasal polyps and has been using intranasal corticosteroids in the form of a flush. He comes in to see if there is any alternatives for his nasal polyp disease. His coronary artery disease appears to be stable as does his asthma. He denies any recent need for his rescue inhaler and has not had oral corticosteroids for his asthma in quite some time. MD [address], [place], [address], [facility], 07/07/2019 10:26:56 09/14/2019 text/html Mikael comes in for follow-up of his sinusitis with nasal polyps as well as his severe persistent asthma. He continues to have trouble with his sinuses. He is using sinus flushes of steroids and is completely anosmic. He is status post 3 sinus surgeries and recently he has had a rhinoscopy which demonstrates the persistence of polyps which seem to be increasing. Additionally he has severe persistent asthma with FEV1 in the high 50-60 range and has been using Breo and montelukast. In spite of this he still has persistent shortness of breath. MD [address], [place], [address], [facility], 09/14/2019 14:58:54
--- OUTSIDE RECORDS SUMMARY | 2025-07-15 07:54 | XMS_ITS | Clinical Summary ---
Author Organization [facility] Address [address] [place] [address] Phone Care Team Providers Care Scrap Piler Name Role Phone Ty Jin MD Primary Care Provider [phone] Allergies Active Allergy Reactions Criticality Noted Date Comments Aspirin Unknown 12/18/2015 Doxycycline Rash Low 11/13/2020 Reaction: rash, Levofloxacin Unknown 11/13/2020 Lisinopril Cough Low 11/13/2020 Reaction: cough, Medications cholecalciferol, vitamin D3, 1,000 unit Take 1,000 Units by mouth every other day. Active ferrous sulfate 325 mg (65 mg iron) tablet Take 325 mg by mouth every other day. Active empagliflozin (JARDIANCE) 10 mg tablet Take 1 Tablet by mouth daily. Active zoster vaccine recombinant, adjuvanted, RZV, (Shingrix, PF,) 50 mcg/0.5 mL Suspension for Reconstitution Shingrix (PF) 50 mcg/0.5 mL intramuscular suspension, kit Active insulin degludec (Tresiba FlexTouch U-100) 100 unit/mL pen syringe Inject 22 Units by subcutaneous injection daily in the morning. 15 mL 3 09/21/19 22 Active Insulin [place], Disposable, (BD Ultra-Fine Mini Pen Needle) 31 gauge x 3/16 NeedleIndications: Type 2 diabetes mellitus without complication, unspecified whether keno terminal operator insulin use Use one needle as directed twice daily for diabetic management. 180 Each 2 03/14/20 22 Active loperamide HCl (IMODIUM ORAL) Take by mouth. Active rosuvastatin (Crestor) 20 mg tablet Take 1 Tablet (20 mg) by mouth daily. 90 Tablet 3 01/21/20 Active fluticasone furoate-vilanteroL (BREO ELLIPTA) 100-25 mcg/dose Disk with Device Take 1 Puff by inhalation daily. 60 Each 3 04/28/20 Active clopidogreL (PLAVIX) 75 mg Tablet Take 1 Tablet (75 mg) by mouth daily. 30 Tablet 3 04/28/20 Active primidone (MYSOLINE) 50 mg tabletIndications: Shaking Take 3 tablets (150 mg) by mouth in the morning and 2 tablets (100 mg) by mouth in the evening. 150 Tablet 3 04/28/20 Active topiramate (TOPAMAX) 25 mg tablet Take 2 Tablets (50 mg) by mouth every 12 hours. 120 Tablet 3 05/03/20 Active levothyroxine 50 mcg tabletIndications: Hypothyroidism, unspecified type Take 1 Tablet (50 mcg) by mouth daily. Takes I tab Mon - Fri Takes 1 1/2 tab Sat and Sun 30 Tablet 3 05/03/20 Active amoxicillin (AMOXIL) 500 mg capsule TAKE FOUR CAPSULES BY MOUTH ONE HOUR BEFORE DENTAL APPOINTMENT 4 Capsule 1 01/17/20 Active valsartan (DIOVAN) 40 mg tablet Take 1 tablet by mouth once daily 90 Tablet 2 03/18/20 Active Active Problems Patient Care Coordination No te Formatting of this note migh t be different from the original. Kt Meadows MD--Certified Coding Specialist ([facility] @ ) Problem Noted Date Diagnosed Date History of herniated intervertebral disc 025 History of ventriculoperitoneal shunting 025 Left-sided chest pain 09/27/2024 Systolic murmur 09/28/2023 Hyperlipidemia associated with type 2 diabetes m sruthi 10/15/2020 Overview (03/10/2022): Last Assessment & Plan: Lab Results Component Value Date LDLCALC 73 08/08/2019 Goal on atorvastatin. Labs with primary MD. Aspirin-exacerbated respiratory disease (AERD) 1 09/07/2018 Personal history of colonic polyps 03/21/2019 Overview (03/10/2022): Added automatically from request for surgery [id number] Intracranial hypotension following ventricular s hunting 02/23/2018 Acquired hypothyroidism 09/30/2017 Overview (03/10/2022): Last Assessment & Plan: Lab Results Component Value Date TSH 1.73 08/08/2019 Biochemically euthyroid Continue levothyroxine 50 mcg daily TSH annually. History of aortic valve replacement 07/21/2017 Other secondary pulmonary hypertension 7 BMI 31.0-31.9,adult 05/05/2017 Overview (03/10/2022): Last Assessment & Plan: BMI Follow-up includes: nutrition counseling and exercise counseling. Essential tremor 08/24/2016 Overview (03/10/2022): Essential tremor Aortic valve stenosis 04/21/2016 Overview (03/10/2022): Aortic valve stenosis Paroxysmal atrial fibrillation 04/21/2016 Hypotension 12/18/2015 S/P nasal polypectomy 12/18/2015 Benign hypertension 12/18/2015 Asthma 12/18/2015 CKD (chronic kidney disease) stage 3, GFR 30-59 ml/min 12/18/2015 Metabolic acidosis, increased anion gap 12/18/19 16 DM (diabetes mellitus) poorly controlled 016 Leucocytosis 12/18/2015 Left anterior fasicular block 12/18/2015 Resolved Problems Problem Noted Date Diagnosed Date Resolved Date Coronary arteriosclerosis 07/07/2019 Encounters Date Type Department Care Team Description 07/11/2025 Telephone [facility] [place] [address] [place] [id number] Kt Meadows MD Surgical Clearance 07/11/2025 Chart Note [facility] [address] [place] [id number] Kt Meadows MD Follow Up 07/10/2025 Telephone [facility] [address] [place] [address] Kt Meadows MD Medication Question 05/28/2025 External Device Data STL ABSTRACTION Provider, Abstract 05/15/2025 External Device Data STL ABSTRACTION Provider, Abstract from Last 3 Months Immunizations Immunization Administration Dates Next Due (PFIZER)(12 YR UP) COVID-19 VACCINE - EMERGENCY USE AUTHORIZATION, MRNA, [id number](PF) 30 MCG/0.3 ML IM SUSP 07/08/2021,11/02/2020,10/07/2020 (PNEUMOVAX 23)(50 YRS UP) PN EUMOCOCCAL POLYSACCHARIDE (PPV23) 0.5 ML, IM 03/19/2014 (SHINGRIX)(50 YRS UP) ZOSTER VACCINE RECOMBINANT, 0.5 ML, IM 05/12/2019 (TENIVAC)(7 YRS UP) TETANUS AND DIPHTHERIA TOXOIDS, ADSORBED (5 LF OF TETANUS TOXOID AND 2 LF OF DIPHTHERIA TOXOID), 0.5ML (PF), IM 06/18/2016 INFLUENZA VACCINE QUADRIVALE NT RECOMB 18 YR UP PF IM 05/05/2019 Influenza Vaccine Quad Split (18-64) Pf Id 05/07 Family History Medical History Relation Name Comments Cancer Brother Cancer Father Hypertension Father Cancer Mother High Cholesterol Mother Hypertension Mother Lung Cancer Mother Diabetes Paternal Grandmother Asthma Sister Cancer Sister Bronchitis Neg Hx Emphysema Neg Hx Heart Failure Neg Hx Mesothelioma Neg Hx Relation Name Status Comments Brother Father Mother Paternal Grandmother Sister Social History Tobacco Use Types Packs/Day Years Used Date Smoking Tobacco: Never Smokeless Tobacco: Never Tobacco Cessation:Counseling Given: Not Answered Alcohol Use Standard Drinks/Week Comments Yes 0 (1 standard drink = 0.6 oz pur e alcohol) very little Sex and Gender Information Value Date Recorded Sex Assigned at Not on file Legal Sex Male 4:17 AM INSTRUCTOR PRODUCT INSPECTION Gender Identity Not on file Sexual Orientation Not on file Last Filed Vital Signs Vital Sign Reading Time Taken Comments Blood Pressure 145/83 01/28/2025 2:28 PM CDT Pulse 92 01/28/2025 2:28 PM CDT Temperature 36.8 C (98.2 F) 01/28/2025 2:28 PM CDT Respiratory Rate 18 12/08/2021 11:59 AM CDT Oxygen Saturation 97% 01/28/2025 2:28 PM CDT Inhaled Oxygen Concentration - - Weight 81.6 kg (180 lb) 01/28/2025 2:28 PM CDT Height 172.7 cm (5' 8) 01/28/2025 2:28 PM CDT Body Mass Index 27.37 01/28/2025 2:28 PM CDT Plan of Treatment Upcoming Encounters Date Type Department Care Team (Late st Contact Info) Description 09/26/2025 8:15 AM INSTRUCTOR PRODUCT INSPECTION Office Visit [facility] [address] [address] [place] [address] Kt Meadows MD [address] [place] [address] Health Maintenance Due Date Last Done Comments DIABETES ANNUAL FOOT EXAM 1975 DIABETES ANNUAL RETINAL EXAM 1975 DIABETES MICROALBUMIN ANNUAL SCREEN 1975 FIT-DNA Q 3 years 2002 FIT/FOBT Q 1 year 2002 Flex Sig/CT Colonography Q 5 years 2002 RSV VACCINE (60+ or ) (1 - Risk 50-74 years 1-dose series) 2007 PNEUMOCOCCAL VACCINE 50+ YEA RS (2 of 2 - PCV) 03/19/2015 03/19/2014 DTAP/TDAP/TD VACCINES (1 - Tdap) 06/19/2016 06/18/20 16 ZOSTER VACCINE (2 of 2) 07/07/2019 05/12/2019 LDL CHOLESTEROL ANNUAL 01/14/2023 01/14/2022 DIABETES HBA1C Q 6 MONTHS 05/18/20242023, 10/14/2020, 08/08/2019, Additional history exists INFLUENZA VACCINE (#1) 2025 05/05/2019, 2015 COVID-19 Vaccine (4 - 2024-2 6 season) 2025 07/08/2021, 11/02/2020, 10/07/2020 COLORECTAL SCREENING 05/04/2029 05/04/2019, 05/04/2019, 03/09/2016 Colorectal Cancer Screening 05/04/2029 Medical Devices Implanted Type Area Manager Managed Care Device Identifier Shelf Expiration Date Model / Serial / Lot Clip Ligating Horizon Lg Ti [id number] - Csc - [id number] Implanted:Qty: 1 on 12/08/2021 by Leelee Beverly MD at [facility] Clip Left: Inguinal TELEFLEX- WECK CLOSURE SYS 07/27/2023 [id number] / / [id number] Mesh Soft Mesh 3x6in [id number] - [id number] Implanted:Qty: 1 on 12/08/2021 by Leelee Beverly MD at [facility] Mesh Left: Inguinal CR [employer] [id number] 07/21/2026 [id number] / / [id number] Sealant Floseal 5ml [id number] - [id number] Implanted:Qty: 1 on 11/01/2017 by Antonio Duque MD at [facility] Sealant N/A: Cranial CHAIREZ[employer] [id number] 11/21/2018 [id number] / / [id number] Cath Ventricular Bactiseal 82-3072 - [id number] Implanted:Qty: 1 on 11/01/2017 by Antonio Duque MD at [facility] Shunt [employer] 07/24/2018 [id number] / / [id number] Heart Valve Aortic Shunt Strata Ii Reg [id number] - [id number] Implanted:Qty: 1 on 11/01/2017 by Antonio Duque MD at [facility] N/A: Cranial [employer]- NEUROLOGIC TECH 01/22/2020 [id number] / / [id number] Procedures Procedure Name Priority Date/Time Associated Diagnosis Comments LIPID PANEL Routine 01/14/2022 9:56 AM CDT HEMOGLOBIN A1C Routine 10/27/2017 10:50 AM CDT from Last 3 Months or Most Recently Relevant to Health Maintenance Results * (ABNORMAL) LIPID PANEL (01/14/2022 9:56 AM CDT) CHOLESTEROL 225(H) <200 mg/dL [facility] HDL 31(L) > OR = 40 mg/dL [facility] TRIGLYCERIDE 214(H) <150 mg/dL [facility] Comment: If a non-fasting specimen was collected, consider repeat triglyceride testing on a fasting specimen if clinically indicated. Anshu et al. J. of Clin. Lipidol. 2015;9:129-169. LDL CALCULATED 156(H) mg/dL (calc) [facility] Comment: Reference range: <100 Desirable range <100 mg/dL for primary prevention; <70 mg/dL for patients with CHD or diabetic patients with > or = 2 CHD risk factors. LDL-C is now calculated using the Reji-Kings calculation, which is a validated novel method providing better accuracy than the Friedewald equation in the estimation of LDL-C. Reji SS et al. JOSE. 2013;310(19): 5290-5893 (http://education.[employer]/faq/ZRQ980) CHOL/HDL RATIO 7.3(H) <5.0 (calc) [facility] TOTAL NON-HDL CHOL(LDL+VLDL) 194(H) <130 mg/dL (calc) [facility] Comment: For patients with diabetes plus 1 major ASCVD risk factor, treating to a non-HDL-C goal of <100 mg/dL (LDL-C of <70 mg/dL) is considered a therapeutic option. Test [facility]formed [facility]: [facility] [id number] [place] [address] Jimmie Patten D.O., MPH 01/14/2022 9:56 AM CDT 01/14/2022 10:02 AM CDT us Ty Jin MD CHEMISTRY ORDERABLES Final Re sult [facility] [phone] * HEMOGLOBIN A1C (10/27/2017 10:50 AM CDT) Pathologist [facility] HEMOGLOBIN A1C 5.8 4.0 - 6.0 % 10/27/2017 1:25 PM CDT [facility] EST. AVG GLUCOSE, A1C 120 mg/dL 10/27/2017 1:25 PM CDT [facility] Blood Venipuncture / Unknown 10/27/2017 10:50 AM CDT 10/27/2017 12:45 PM CDT us Antonio Duque MD CHEMISTRY ORDERABLES Final R esult [facility] CLIA# [id number] [address] [place] [address] from Last 3 Months or Most Recently Relevant to Health Maintenance Insurance [facility] Advance Directives For more information, please contact: [phone] * Full Code (Latest Code Status on File) Date Activated Date Inactivated Comments 12/08/2021 7:59 AM 12/08/2021 2:12 PM * Full Code Date Activated Date Inactivated Comments 12/08/2021 7:25 AM 12/08/2021 7:58 AM * Full Code Date Activated Date Inactivated Comments 11/01/2017 1:39 PM 11/03/2017 2:58 PM * Full Code Date Activated Date Inactivated Comments 11/01/2017 8:19 AM 11/01/2017 1:39 PM * Full Code Date Activated Date Inactivated Comments 11/01/2017 8:19 AM 11/01/2017 8:19 AM Care Teams Scrap Piler Relationship Specialty Start Date [place] [address] [place] [address] PCP - General Internal Medicine 09/14/17
--- OUTSIDE RECORDS SUMMARY | 2025-07-15 07:54 | XMS_ITS | Continuity of Care Document ---
Author Organization [place] [facility] [place], [facility] Address [address] [place] [address] Care Team Providers Care Photography Professor Name Role Phone ROBERTO HULL Primary Care Provider Unavailab le Assessment Encounter Date Assessment Date Assessment LastModified by Organization Details LastModified Time 06/07/2025 06/07/2025 Colonoscopy 2-16-24 repeat 5 years. dental appt UTD last week eye exam just completed. all clear. years ago had some diabetes related changes and had laser, but stable for years. Sees [facility]. Cholesterol in great range thyroid levels are normal metabolic panel shows creatinine is elevated at 1.86. Liver function is normal CBC blood counts are stable A1c 6.8% stable. Creatinine has improved previously it was 2.4 Not available 06/23/2025 15:26:08 Plan of Treatment Reminders Order Date Submit Date Provider Last Modified By Organization Details Last Modified Time Details Appointments ANY 15 2025 07:45A ROSEANNE Teresa Not available Not available Not available Lab BMP, serum or plasma 2024 026 [facility], [address], [place], [address], 06/07/2025 08:50:03 hepatic function panel, serum 2024 026 [facility], [address], [place], [address], 06/07/2025 08:50:03 CBC w/ auto diff 2024 026 [facility], [address], [place], [address], 06/07/2025 08:50:03 lipid panel, serum 2024 026 [facility], [address], [place], [address], 06/07/2025 08:50:03 microalbu min/creat inine, mass ratio, urine 2024 026 [facility], [address], [place], [address], 06/07/2025 08:50:03 PSA, serum or plasma 2024 026 [facility], [address], [place], [address], 06/07/2025 08:50:03 HbA1c (hemoglob in A1c), blood 2024 026 [facility], [address], [place], [address], 06/07/2025 08:50:02 TSH + free T4, serum 2024 026 [facility], [address], [place], [address], 06/07/2025 08:50:03 Referral None recorded. Procedures None recorded. Surgeries None recorded. Imaging None recorded. Medication Orders None recorded. Patient TargetsNo targets recorded. Patient Instructions Encounter Date Encounter Id Patient Instructions Last Modified By Organization Details Last Modified Time 06/07/2025 [id number] A healthy lifestyle: care instructions Not available 06/07/2025 08:50:03 Reason for Referral None Reported. Results Created Date Observation Date Name Description Value Unit Range Abnormal Flag Note LastModifiedBy Organization Detail LastModifiedTime 05/29/2005/29/2025 LIPID PANEL , STAND YOBANI cholesterol, total 121 mg/dL <200 normal Not Available [address] [place], [address], 05/29/2025 21:04:42 05/29/20 25 05/29/2025 LIPID PANEL , STAND YOBANI HDL cholesterol 53 mg/dL > or = 40 normal Not Available [address] [address] [place], [address], 05/29/2025 21:04:42 05/29/20 25 05/29/2025 LIPID PANEL , STAND YOBANI triglyceride s 47 mg/dL <150 normal Not Available [address] [address] [place], [address], 05/29/2025 21:04:42 05/29/20 25 05/29/2025 LIPID PANEL , STAND YOBANI LDL-choleste rol 55 mg/dL _(vicente c) normal Refer ence range : <100 Pamela able range <100 mg/dL for prima ry preve ntion ; <70 mg/dL for patie nts with CHD or diabe tic patie nts with > or = 2 CHD risk facto rs. LDL-C is now calcu lated using the Savannah n-Hop kins calcu mayra n, which is a valid ated novel metho d provi ding paula r accur acy than the Fried osmany equat ion in the estim ation of LDL-C . Savannah curran SS et al. JOSE. 2013; 310(1 9): 2061- 2068 (http ://ed ucati on.Qu Rosa Spectralminds. com/f aq/FA Q164) Not Available [facility] [address] [address] [place], [address], 05/29/2025 21:04:42 05/29/20 25 05/29/2025 LIPID PANEL , STAND YOBANI chol/HDLC ratio 2.3 (calc ) <5.0 normal Not Available [facility] [address] [address] [place], [address], 05/29/2025 21:04:42 05/29/20 25 05/29/2025 LIPID PANEL , STAND YOBANI non HDL cholesterol 68 mg/dL _(vicente c) <130 normal For patie nts with diabe denilson plus 1 major ASCVD risk facto r, treat ing to a non-H DL-C goal of <100 mg/dL (LDL- C of <70 mg/dL ) is consi kody zaidi optio n. Not Available [address], [address], 05/29/2025 21:04:42 05/29/2005/29/2025 TSH+F REE T4 TSH 1.58 mIU/L 0.40-4 .50 normal Not Available [address], [address], 05/29/2025 21:04:43 05/29/2005/29/2025 TSH+F REE T4 T4, free 1.1 NG/dL 0.8-1. 8 normal Not Available [address], [address], 05/29/2025 21:04:43 05/29/20 25 05/29/2025 BASIC METAB OLIC PANEL glucose 94 mg/dL 65-99 normal Fasti ng refer ence inter ailyn Not Available [address], [address], 05/29/2025 21:04:43 05/29/20 25 05/29/2025 BASIC METAB OLIC PANEL urea nitrogen (BUN) 37 mg/dL 7-25 high Not Available [facility] [address], [address], 05/29/2025 21:04:43 05/29/20 25 05/29/2025 BASIC METAB OLIC PANEL creatinine 1.86 mg/dL 0.70-1 .35 high Not Available [facility] [address], [address], 05/29/2025 21:04:43 05/29/20 25 05/29/2025 BASIC METAB OLIC PANEL eGFR 39 mL/mi n/1.7 3m2 > or = 60 low Not Available [address], [address], 05/29/2025 21:04:43 05/29/20 25 05/29/2025 BASIC METAB OLIC PANEL BUN/creatini ne ratio 20 (calc ) 6-22 normal Not Available [address], [address], 05/29/2025 21:04:43 05/29/20 25 05/29/2025 BASIC METAB OLIC PANEL sodium 138 mmol/ L 135-14 6 normal Not Available [address], [address], 05/29/2025 21:04:43 05/29/20 25 05/29/2025 BASIC METAB OLIC PANEL potassium 4.4 mmol/ L 3.5-5. 3 normal Not Available [address], [address], 05/29/2025 21:04:43 05/29/20 25 05/29/2025 BASIC METAB OLIC PANEL chloride 106 mmol/ L 98-110 normal Not Available [address], [address], 05/29/2025 21:04:43 05/29/20 25 05/29/2025 BASIC METAB OLIC PANEL carbon dioxide 26 mmol/ L 20-32 normal Not Available [address], [address], 05/29/2025 21:04:43 05/29/20 25 05/29/2025 BASIC METAB OLIC PANEL calcium 8.5 mg/dL 8.6-10 .3 low Not Available [address] [place], [address], 05/29/2025 21:04:43 05/29/20 25 05/29/2025 HEPAT IC FUNCT ION PANEL protein, total 6.3 g/dL 6.1-8. 1 normal Not Available [address], [address], 05/29/2025 21:04:44 05/29/20 25 05/29/2025 HEPAT IC FUNCT ION PANEL albumin 4.1 g/dL 3.6-5. 1 normal Not Available [address], [address], 05/29/2025 21:04:44 05/29/20 25 05/29/2025 HEPAT IC FUNCT ION PANEL globulin 2.2 g/dL_ (calc ) 1.9-3. 7 normal Not Available [address], [address], 05/29/2025 21:04:44 05/29/20 25 05/29/2025 HEPAT IC FUNCT ION PANEL albumin/glob ulin ratio 1.9 (calc ) 1.0-2. 5 normal Not Available [address], [address], 05/29/2025 21:04:44 05/29/20 25 05/29/2025 HEPAT IC FUNCT ION PANEL bilirubin, total 0.3 mg/dL 0.2-1. 2 normal Not Available [address], [address], 05/29/2025 21:04:44 05/29/20 25 05/29/2025 HEPAT IC FUNCT ION PANEL bilirubin, direct 0.1 mg/dL < or = 0.2 normal Not Available [address], [address], 05/29/2025 21:04:44 05/29/20 25 05/29/2025 HEPAT IC FUNCT ION PANEL bilirubin, indirect 0.2 mg/dL _(vicente c) 0.2-1. 2 normal Not Available [address], [address], 05/29/2025 21:04:44 05/29/20 25 05/29/2025 HEPAT IC FUNCT ION PANEL alkaline phosphatase 99 U/L 35-144 normal Not Available [facility] [address], [address], 05/29/2025 21:04:44 05/29/20 25 05/29/2025 HEPAT IC FUNCT ION PANEL AST 24 U/L 10-35 normal Not Available [address], [address], 05/29/2025 21:04:44 05/29/20 25 05/29/2025 HEPAT IC FUNCT ION PANEL ALT 28 U/L 9-46 normal Not Available [facility] [address], [address], 05/29/2025 21:04:44 05/29/20 25 05/29/2025 CBC (INCL UDES DIFF/ PLT) white blood cell count 6.0 thous and/u L 3.8-10 .8 normal Not Available [facility] [address], [address], 05/29/2025 21:04:44 05/29/20 25 05/29/2025 CBC (INCL UDES DIFF/ PLT) red blood cell count 3.92 betina on/uL 4.20-5 .80 low Not Available [facility] [address], [address], 05/29/2025 21:04:44 05/29/20 25 05/29/2025 CBC (INCL UDES DIFF/ PLT) hemoglobin 12.6 g/dL 13.2-1 7.1 low Not Available [facility] [facility] [address] [place], [address], 05/29/2025 21:04:44 05/29/20 25 05/29/2025 CBC (INCL UDES DIFF/ PLT) hematocrit 39.0 % 38.5-5 0.0 normal Not Available [address], [address], 05/29/2025 21:04:44 05/29/2005/29/2025 CBC (INCL UDES DIFF/ PLT) MCV 99.5 fL 80.0-1 00.0 normal Not Available [facility] [address], [address], 05/29/2025 21:04:44 05/29/2005/29/2025 CBC (INCL UDES DIFF/ PLT) MCH 32.1 pg 27.0-3 3.0 normal Not Available [address], [address], 05/29/2025 21:04:44 05/29/2005/29/2025 CBC (INCL UDES DIFF/ PLT) MCHC 32.3 g/dL 32.0-3 6.0 normal For adult s, a sligh t decre ase in the calcu lated MCHC value (in the range of 30 to 32 g/dL) is most likel y not clini erwin signi roshan t; romeo er, it shoul d be inter prete d with cauti on in corre latio n with other red cell manuela eters and the patie nt's clini vicente condi tion. Not Available [facility] [address], [address], 05/29/2025 21:04:44 05/29/2005/29/2025 CBC (INCL UDES DIFF/ PLT) RDW 13.1 % 11.0-1 5.0 normal Not Available [facility] [address], [address], 05/29/2025 21:04:44 05/29/20 25 05/29/2025 CBC (INCL UDES DIFF/ PLT) platelet count 195 thous and/u L 140-40 0 normal Not Available [address], [address], 05/29/2025 21:04:44 05/29/20 25 05/29/2025 CBC (INCL UDES DIFF/ PLT) MPV 10.7 fL 7.5-12 .5 normal Not Available [address], [address], 05/29/2025 21:04:44 05/29/20 25 05/29/2025 CBC (INCL UDES DIFF/ PLT) absolute neutrophils 4170 cells /uL 1500-7 800 normal Not Available [address], [address], 05/29/2025 21:04:44 05/29/20 25 05/29/2025 CBC (INCL UDES DIFF/ PLT) absolute lymphocytes 936 cells /uL 850-39 00 normal Not Available [address], [address], 05/29/2025 21:04:44 05/29/20 25 05/29/2025 CBC (INCL UDES DIFF/ PLT) absolute monocytes 522 cells /uL 200-95 0 normal Not Available [address], [address], 05/29/2025 21:04:44 05/29/20 25 05/29/2025 CBC (INCL UDES DIFF/ PLT) absolute eosinophils 312 cells /uL 15-500 normal Not Available [address], [address], 05/29/2025 21:04:44 05/29/20 25 05/29/2025 CBC (INCL UDES DIFF/ PLT) absolute basophils 60 cells /uL 0-200 normal Not Available [address], [place], [address], 05/29/2025 21:04:44 05/29/2005/29/2025 CBC (INCL UDES DIFF/ PLT) neutrophils 69.5 % normal Not Available [facility] [address], [address], 05/29/2025 21:04:44 05/29/2005/29/2025 CBC (INCL UDES DIFF/ PLT) lymphocytes 15.6 % normal Not Available [facility] [address], [address], 05/29/2025 21:04:44 05/29/2005/29/2025 CBC (INCL UDES DIFF/ PLT) monocytes 8.7 % normal Not Available [facility] [address], [address], 05/29/2025 21:04:44 05/29/2005/29/2025 CBC (INCL UDES DIFF/ PLT) eosinophils 5.2 % normal Not Available [facility] [address], [address], 05/29/2025 21:04:44 05/29/2005/29/2025 CBC (INCL UDES DIFF/ PLT) basophils 1.0 % normal Not Available [facility] [address], [address], 05/29/2025 21:04:44 05/29/2005/29/2025 HEMOG LOBIN A1C hemoglobin A1C 6.8 %_of_ total _HGB <5.7 high For someo ne witho ut known diabe denilson, a hemog lobin A1c value of 6.5% or great er indic ates that they may have diabe denilson and this shoul d be confi rmed with a follo w-up test. For someo ne with known diabe denilson, a value <7% indic ates that their diabe denilson is well contr olled and a value great er than or equal to 7% indic ates subop timal contr ol. A1c targe ts shoul d be indiv idual ized based on durat ion of diabe denilson, age, comor bid condi tions , and other consi derat ions. Curre ntly, no conse nsus exist s martin cunningham use of hemog lobin A1c for diagn osis of diabe denilson for child christine. Not Available [facility] [address] [place], [address], 05/29/2025 21:04:45 Result Notes None recorded. Problems Name Problem SNOMED Code Status Onset Date Resolution Date Notes Provider Name and Address Organization Details Recorded Time Type 2 diabetes mellitus without complicatio n 628224399 Active 2023 ROSEANNE Kramer Attn: Accountin g,[address] 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, [place], [place], [address] [place] [address] 2, [facility] - [facility] 4 09:30:54 History of aortic valve replacement 8824256038218 Active 2023 ROSEANNE Kramer Attn: Accountin g,[address] [facility], [place], [place], [address] [place] [address] 2, [facility] - [facility] 4 09:30:56 Benign essential hypertensio n 6044300 Active 2023 ROSEANNE Kramer Attn: Accountin g,[address] [facility], [place], [address], [facility] 4 09:30:57 Chronic kidney disease stage 3 527782907 Active 2023 ROSEANNE Kramer Attn: Accountin g,[address] [facility], [place], [address], [facility] - [facility] 4 09:30:59 Hypothyroid ism 64785225 Active 2023 ROSEANNE Kramer Attn: Accountin g,[address] [place], [address], [place] [facility] 4 09:31:00 Hyperlipide marcella 99310042 Active 2023 ROSEANNE Kramer Attn: Accountin g,[address] [place], [address], [place] [facility] 4 09:31:01 Asthma 145689470 Active 2023 ROSEANNE Kramer Attn: Accountin g,[address] [place], [address], [place] [facility] 4 09:31:03 Hereditary essential tremor 052170418 Active 2023 ROSEANNE Kramer Attn: Accountin g,[address] [place], [address], [place] [facility] 4 09:31:04 Long-term drug therapy Active 2023 ROSEANNE Kramer Attn: Accountin g,[address] [place], [address], [place] [facility] 4 09:31:06 Family history of malignant neoplasm of prostate 346791195 Active 2023 ROSEANNE Kramer Attn: Accountin g,[address] [place], [address], [place] [facility] 4 09:02:02 Body mass index 25-29 - overweight 395701726 Active 2023 ROSEANNE Kramer Attn: Accountin g,[address] [place], [address], [place] [facility] 4 15:56:09 Overweight 734373227 Active 2024 ROSEANNE Kramer Attn: Accountin g,[address] [place], [address], [place] [facility] 5 09:05:13 Normal pressure hydrocephal 16298052 Active 2024 ROSEANNE Kramer Attn: Amy burgess,[address] [place], [address], [facility] - [facility] 5 09:16:14 Device in situ 313906632 Active 2024 ROSEANNE Kramer Attn: Amy burgess,[address] [place], [address], [facility] - [facility] 5 09:16:15 Erectile dysfunction 210390467 Active 2024 ROSEANNE Kramer Attn: Amy burgess,[address] [place], [address], [facility] - [facility] 5 01:14:51 Delay when starting to pass urine 3468947 Active 2024 ROSEANNE Kramer Attn: Amy burgess,[address] [place], [address], [facility] - [facility] 5 01:14:53 Problem Notes None recorded. Procedures Surgical History Date Name Laterality Status Provider Name and Address Organization Details Recorded Time Heart Surgery completed Jose Alberto Simental MA [facility] 12/02/2023 09:36:06 Imaging Results None recorded. Procedure Notes None recorded. Medical Equipment None Reported. Allergies Allergen ID Allergen Name Allergen Category Reaction Reaction Severity Criticality Documentation Date Start Date Code Code System Note Provider Name and Address Organization Details Recorded Time 830965 aspirin medicatio n Not available Not available Not available 11/30/2023 1191 RxNorm Jose Alberto Simental MA null, [place] [facility] 4 12:01:28 373299 doxycycli ne Not available rash Not available low 05/21/20252020 3640 RxNorm React ion: rash, Not Available christiano - [employer] - prod 5 12:01:02 089527 levofloxa caleb medicatio n Not available Not available Not available 05/21/20252020 20101 RxNorm Not Available christiano - [employer] - prod 12:01:02 507340 lisinopri l medicatio n cough Not available low 05/21/20252020 63914 RxNorm React ion: cough , Not Available christiano - External Data [employer] - prod 12:01:02 Medications Name Sig Start Date Stop Date Status Note LastModified by Organization Details LastModified Time amoxicill in 500 mg capsule TAKE FOUR CAPSULES BY MOUTH ONE HOUR BEFORE APPOINTM ENT 06/07 completed Not Available Not Available Not Available furosemid e 40 mg tablet TAKE 1 TABLET BY MOUTH ONCE DAILY 06/07 completed Pt states he does not take this Not Available Not Available Not Available latanopro st 0.005 % eye drops INSTILL 1 DROP INTO EACH EYE AT BEDTIME active Not Available Not Available No t Available primidone 50 mg tablet TAKE 3 TABLETS BY MOUTH ONCE DAILY IN THE MORNING AND 2 IN THE EVENING active Not Available Not Available No t Available carvedilo l 6.25 mg tablet Take 1 tablet by mouth twice daily 06/07 completed Not Available Not Available Not Available prednison e 10 mg tablet TAKE 1 TABLET BY MOUTH TWICE DAILY UNTIL GONE 06/07 completed Not Available Not Available Not Available azithromy caleb 250 mg tablet TAKE 2 TABLETS BY MOUTH ON DAY 1, AND THEN TAKE 1 TABLET BY MOUTH ONCE A DAY ON DAY 2 THROUGH DAY 5 11/28 completed Not Available Not Available Not Available benzonata te 200 mg capsule Take 1 capsule 3 times a day by oral route, for cough. 11/30 completed Not Available Not Available Not Available prednison e 20 mg tablet TAKE 2 TABLETS BY MOUTH ONCE DAILY FOR 5 DAYS 12/01 completed Not Available Not Available Not Available isosorbid e mononitra te ER 30 mg tablet,ex tended release 24 hr TAKE 3 TABLETS BY MOUTH IN THE MORNING AND 2 IN THE EVENING . DO NOT EXCEED 5 PER 24 HOURS active stopped at this time. with cialis on board Not Available Not Available Not Available clobetaso l 0.05 % topical cream APPLY TO LEGS TWICE DAILY FOR 2 WEEKS. active Not Available Not Available No t Available Accu-Chek Softclix Lancets USE TO CHECK BLOOD GLUCOSE ONCE DAILY active Not Available Not Available No t Available topiramat e 25 mg tablet TAKE 2 TABLETS BY MOUTH EVERY 12 HOURS 06/01 completed Not Available Not Available Not Available clopidogr el 75 mg tablet TAKE 1 TABLET BY MOUTH ONCE DAILY active Not Available Not Available No t Available tramadol 50 mg tablet Take 1 tablet every 6 hours by oral route as needed, for low back pain. 11/30 completed Not Available Not Available Not Available carvedilo l 3.125 mg tablet TAKE 1 TABLET BY MOUTH TWICE DAILY WITH MEALS 06/07 completed Not Available Not Available Not Available amoxicill in 875 mg tablet TAKE 1 TABLET BY MOUTH EVERY 12 HOURS 06/04 completed Not Available Not Available Not Available tamsulosi n 0.4 mg capsule TAKE 1 CAPSULE BY MOUTH ONCE DAILY 01/17 completed Signific ant orthosta tic blood pressure drop Not Available Not Available Not Available benzonata te 100 mg capsule TAKE 1 CAPSULE BY MOUTH EVERY 8 HOURS NEEDED 12/01 completed Not Available Not Available Not Available levothyro xine 50 mcg tablet Take 1 tablet by mouth once daily 2024 active Not Available Not Available Not Avai lable valsartan 320 mg tablet TAKE 1 TABLET BY MOUTH ONCE DAILY 06/07 completed Not Available Not Available Not Available codeine 10 mg-guaife nesin 100 mg/5 mL oral liquid TAKE 10ML BY MOUTH EVERY 4 TO 6 HOURS NEEDED 12/01 completed Not Available Not Available Not Available allopurin ol 300 mg tablet TAKE 1 TABLET BY MOUTH ONCE DAILY active Not Available Not Available No t Available testoster one cypionate 200 mg/mL intramusc ular oil INJECT 0.7ML (140MG) INTRAMUS CULARLY ONCE WEEKLY. MAY INCREASE TO 0.8ML ONLY IF INSTRUCT ED BY PROVIDER 06/07 completed Not Available Not Available Not Available valsartan 160 mg tablet TAKE 1 TABLET BY MOUTH ONCE DAILY 06/07 completed Not Available Not Available Not Available valsartan 40 mg tablet TAKE 1 TABLET BY MOUTH ONCE DAILY active Not Available Not Available No t Available rosuvasta tin 20 mg tablet TAKE 1 TABLET BY MOUTH ONCE DAILY active Not Available Not Available No t Available tadalafil 5 mg tablet TAKE 1 TABLET BY MOUTH ONCE DAILY active Not Available Not Available No t Available topiramat e 50 mg tablet TAKE 1 TABLET BY MOUTH TWICE DAILY active Not Available Not Available No t Available iron active otc Not Available Not Availa ble Not Available Vitamin D3 active Not Available Not Available Not Available silodosin 4 mg capsule TAKE 1 CAPSULE BY MOUTH AT BEDTIME active Not Available Not Available No t Available Breo Ellipta 100 mcg-25 mcg/dose powder for inhalatio n INHALE 1 PUFF BY MOUTH ONCE DAILY active Not Available Not Available No t Available Jardiance 25 mg tablet TAKE 1 TABLET BY MOUTH ONCE DAILY active Not Available Not Available No t Available insulin degludec (U-100) 100 unit/mL (3 mL) subcutane ous pen INJECT 22 UNITS SUBCUTAN EOUSLY ONCE DAILY DIRECTED active Not Available Not Available No t Available Accu-Chek Guide test strips USE 1 STRIP TO CHECK GLUCOSE TWICE DAILY 2024 active Not Available Not Available Not Avai lable Accu-Chek Guide Glucose Meter USE DIRECTED TO CHECK BLOOD SUGAR DAILY. active Not Available Not Available No t Available Vitals Date Recorded Respiratory rate Systolic And Diastolic Provider Name and Address Organization Details Last Updated DateTime 06/07/2025 16 /min 136/80 mm[Hg] ROSEANNE Kramer Attn: Accounting,[address] [place], [address], [facility] 06/07/2025 08:53:11 Date Recorded Body height Provider Name an d Address Organization Details Last Updated DateTime 06/07/2025 177.8 cm Anjali Alcocer [facility] 06/07/20 25 08:13:27 Date Recorded Body mass index (BMI) Body weight Oxygen saturation Heart rate Systolic And Diastolic Provider Name and Address Organization Details Last Updated DateTime 06/07/2025 24.9 kg/m2 84488.2 g 97 % 96 /min 140/72 mm[Hg] Jasmine Quiñones MA [facility] 5 08:33:03 Social History Question Answer Notes LastModified by Organizat ion Details LastModified Time Tobacco Smoking Status Never Smoker Jose Alberto Simental MA null, [facility] 11/30/2023 12:01:38 Do You Have An Advance Directive? Yes Information n ot available 11/30/2023 Are You Blind Or Do You Have Difficulty Seeing? No Information n ot available 11/30/2023 What Is Your Level Of Caffeine Consumption? Occasional Tea Information not available 11/30/2023 In The 14 Days Before Symptom Onset, Have You Had Close Contact With A Laboratory-confirm ed COVID-19 While That Case Was Ill? No Information n ot available 11/30/2023 In The 14 Days Before Symptom Onset, Have You Had Close Contact With A Person Who Is Under Investigation For COVID-19 While That Person Was Ill? No Information not available 11/30/2023 Have You Been To An Area Known To Be High Risk For COVID-19? No Information not available 11/30/2023 Are You Deaf Or Do You Have Serious Difficulty Hearing? No Information not available 11/30/2023 What Type Of Diet Are You Following? REGULAR Information n ot available 11/30/2023 Are There Any Guns Present In Your Home? No Information not available 11/30/2023 What Was The Date Of Your Most Recent Tobacco Screening? 06/07/2025 Information not available 06/07/2025 What Is Your Relationship Status? Information not available 11/30/2023 Do You Use Your Seat Belt Or Car Seat Routinely? Yes Information not available 11/30/2023 Do You Have Smoke And Carbon Monoxide Detectors In Your Home? Yes Information not available 11/30/2023 Do You Use Sunscreen Routinely? No Information not available 11/30/2023 Has Tobacco Cessation Counseling Been Provided? Yes Information not available 11/30/2023 On What Date Was Tobacco Cessation Counseling Provided? 06/07/2025 Information not available 06/07/2025 Sex: Male Functional Status Question Answer Note LastModified by Organizat ion Details LastModified Time Do you use any illicit or recreational drugs? No Information not available 11/30/2023 Do you or have you ever used any other forms of tobacco or nicotine? No Information not available 11/30/2023 What is your level of alcohol consumption? Occasional Information not available 11/30/2023 Are you currently employed? No Information not available 11/30/2023 Are you able to care for yourself independently? Yes Information not available 11/30/2023 What is your occupation? retired Information not available 11/30/2023 What is your exercise level? Occasional Information not available 11/30/2023 Mental Status Question Answer Note LastModified by Organization D etails LastModified Time Do you feel stressed (tense, restless, nervous, or anxious, or unable to sleep at night)? [id number] Information not available 11/30/2023 Family History Relationship Description Onset Age of this Age Resolved Age Notes LastModified by Organization Details LastModified Time Father Harmful pattern of use of alcohol tcarterma Not available 2023 09:36:16 Father Malignant neoplasm of prostate tcarterma Not available 2023 09:36:34 Sister Malignant neoplasm of breast tcarterma Not available 2023 09:36:23 Mother Hypertensive disorder tcarterma Not available 2023 09:36:28 Notes:daughter in law-cancer Medical History Condition Response Coronary Artery Disease N Other N High Blood Pressure Y Atrial Fibrillation N Kidney or Bladder Problems Y Thyroid Problems N GI Problems N Depression N COPD N Blood Clots N Skin Problems N Anemia N Heart Attack ([place]) N Anxiety Disorder N Diabetes Y Muscle, Joint, or Bone Problems N Seizures/Epilepsy N Acid Reflux (GERD) N Cancer N Stroke N Asthma Y Allergies N High Cholesterol N Hepatitis N Liver Disease N Headaches N Osteoporosis N Heart Failure N Immunizations Vaccine Type Date Status Note Provider Nam e and Address Organization Details Recorded Time Influenza, recombinant, quadrivalent, PF 0 completed JAIME Monk, [place] - [facility] 06/01/2024 08:40:52 Influenza, recombinant, quadrivalent, PF 9 completed Jose Alberto Simental [place], [place] - [facility] 06/01/2024 08:40:52 zoster recombinant 0 completed JA[place] [facility] 06/01/2024 08:40:52 zoster recombinant 9 kd Simental, [place] [facility] 06/01/2024 08:40:52 Influenza, high-dose, quadrivalent, PF 2 completed JAIME [place] [facility] 06/01/2024 08:40:52 Influenza, high-dose, quadrivalent, PF 3 completed JAIME [place] [facility] 06/01/2024 08:40:52 COVID-19, mRNA, LNP-S, PF, 30 mcg/0.3 mL dose 1 completed JAIME [place] [facility] 06/01/2024 08:40:52 COVID-19, mRNA, LNP-S, PF, 30 mcg/0.3 mL dose 1 completed JAIME [place] [facility] 06/01/2024 08:40:52 COVID-19, mRNA, LNP-S, PF, 30 mcg/0.3 mL dose 1 completed JAIME [place] [facility] 06/01/2024 08:40:52 Pneumococcal conjugate PCV20, polysaccharide [id number] conjugate, adjuvant, PF 2 completed JAIME [place] [facility] 06/01/2024 08:40:52 RSV, recombinant, protein subunit RSVpreF, adjuvant reconstituted, 0.5 mL, PF 3 completed JAIME [place] [facility] 06/01/2024 08:40:52 Td (adult), 5 Lf tetanus toxoid, preservative free, adsorbed 6 completed JAIME [place] [facility] 06/01/2024 08:40:52 Influenza, split virus, quadrivalent, PF 7 completed JAIME [place] [facility] 06/01/2024 08:40:52 Influenza, split virus, quadrivalent, PF 1 completed JAIME [place] [facility] 06/01/2024 08:40:52 Influenza, split virus, quadrivalent, PF 8 completed Jose Alberto Simental MA [place], [place] - [facility] 06/01/2024 08:40:52 Past Encounters Encounter ID Performer Location Encounter Start Date Encounter Closed Date Diagnosis/Indication Diagnosis SNOMED-CT Code Diagnosis ICD10 Code Diagnosis IMO Codes Diagnosis Note [id number] ROSEANNE Kramer [facility] [place] [address] [place] [address] 06/07/2025 08:05:55 06/07/2025 08:56:20 Type 2 diabetes mellitus without complication 544785541 E11.9 6.8% a1c on recent labs. stable on jardiance 25mg daily. Next A1c due in november Microalbum inuria due to type 2 diabetes mellitus 4073263262 9102 E11.29 stable on valsartan 320mg daily continue dosing check albumin also in November Chronic ki dney disease stage 3 719944370 N18.30 due for bmp labs. He doesn't want to see the previous nephrologi st and would like to see another option locally. we will refer to dr. florence crockett. Benign ess ential hypertension 3871750 I10 stable on multiple agents. partially managed by cardiology . 120-130 systolic ranges at home always. nerves during appt times. Hypothyroidism 62140252 E03.9 stable on thyroid supplement . Repeat thyroid panel in November 2025 Hyperlipidemia 51196407 E78.5 Very stable on statin therapy with labs in controlled range. Repeat fasting labs in November Asthma 065255285 J45.90 9 stable on breo therapy. 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 stable on medication . History of aortic valve replacement 6381015900 100 Z95.4 hx noted. Overweight 990620153 E66 .3 Continue diet and exercise Long-term drug therapy 603022482 Z79.899 next labs due in november Screening for malignant neoplasm of prostate 464566522 Z12.5 Annual PSA ordered for early summer as well Family his tory of malignant neoplasm of prostate 609603129 Z80.42 father dx in 70's. Device in situ 329534054 Z98.2 471443 hx noted. Normal pre ssure hydrocephalus 01392455 G91.[address] [place] when starting to pass urine 7624430 R39.11 094307 Following with urology Erectile dysfunction 860 038414 N52.9 94728217 Tadalafil 5 mg daily on board Health Concerns Section Related Observation LastModified by Organization Detai ls LastModified Time None Recorded Concern Status LastModified by Organization Details LastModified Time None Recorded Payers Encounter Date Sequence Insurance Name Policy Number Policy Parry Covered Member ID Parry Member ID Guarantor Name 06/07/2025 1 [employer] (MEDICARE REPLACEMENT/ ADVANTAGE - PPO) [id number] Mikael Rob [id number] Mikael Rob Notes Date Note Type Note Provider Name and Address Organization Details Recorded Time 5 text/html HyperlipidemiaReported by PatientHPIFor duration, patient reportschronic. For risk factors, patient reportshypertension. For control, patient reportsusually well controlled. For compliance, patient reportscompliant.pt is taking rosuvastatin 20mg daily. HypertensionReported by PatientHPIFor duration, patient reportshas noted for years. For onset/timing, patient reportsbetter. For alleviating factors, patient reportsmedication.stable on valsartan 320mg , coreg, furosemide, isosorbide mononitrate. DiabetesReported by PatientHPIFor self care, patient reportsnot taking aspirin daily. For duration, patient reportschronic. For control, patient reportsusually well controlled. For compliance, patient reportscompliant with medicationsandcompliant with follow-up visits.stable on jardiance 25mg daily. Asthma F/UReported by PatientHPIFor onset/timing, patient reportschronic. For context, patient reportssame.pt is stable on breo ellipta 100/25mcg dosing. ThyroidReported by PatientHPIFor context, patient reportshistory of thyroid diseaseandhistory of hypothyroidism. For duration, patient reportsconstant. For onset/timing, patient reportsstill present. For modifying factors, patient reportsmedication.pt is taking levothyroxine 50mcg daily. Essential tremor hx. on primidone and topamax.Hx of Aortic valve replacement. follows routinely with cardiology.CKD hx. follows with nephrology. ROSEANNE Kramer Attn: Accounting,[address] [place], [address], [place] [facility] 06/23/2025 15:27:35
--- OUTSIDE RECORDS SUMMARY | 2025-07-15 07:54 | XMS_ITS | Encounter Summary ---
Author Organization [facility] Address [address] [place] [address] Phone Care Team Providers Care Cardiovascular Or Nurse Name Role Phone Ty Jin MD Primary Care Provi dwaine Encounter Details Date Type Department Care Team (Late st Contact Info) Description 09/30/2017 Orders Only 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
--- OUTSIDE RECORDS SUMMARY | 2025-07-15 07:54 | XMS_ITS | Data Portability ---
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 on 3 year plan. dental appt UTD last week eye exam 3 months ago. all clear. years ago had some diabetes related changes and had laser, but stable for years. [facility] Not available 12/19/2023 23:29:47 06/01/2024 06/01/2024 Colonoscopy 2022, polyp hx. on 3 year plan. dental appt UTD last week eye exam 3 months ago. all clear. years ago had some diabetes related changes and had laser, but stable for years. [facility]. Not available 06/01/2024 08:54:33 11/30/2024 11/30/2024 Colonoscopy 216- repeat 5 years. dental appt UTD last week eye exam just completed. all clear. years ago had some diabetes related changes and had laser, but stable for years. [facility] Not available 11/30/2024 09:10:46 06/07/2025 06/07/2025 Colonoscopy 2-16-24 repeat 5 years. [...] Time Details Appointments ANY 15 2025 07:45A M ROSEANNE Kramer Not available Not available Not available Lab BMP, serum or plasma 2024 026 [facility], [address], [place], [address], 06/07/2025 08:50:03 hepatic function panel, serum 2024 026 [facility], [address], [place], [address], 06/07/2025 08:50:03 CBC w/ auto diff 2024 026 [facility], [address], [place], [address], 06/07/2025 08:50:03 lipid panel, serum 2024 026 [facility], [address], [place], [address], 06/07/2025 08:50:03 microalbu min/creat inine, mass ratio, urine 2024 026 [facility], [address], [place], [address], 06/07/2025 08:50:03 PSA, serum or plasma 2024 026 [facility], [address], [place], [address], 06/07/2025 08:50:03 HbA1c (hemoglob in A1c), blood 2024 026 [facility], [address], [place], [address], 06/07/2025 08:50:02 TSH + free T4, serum 2024 026 [facility], [address], [place], [address], 06/07/2025 08:50:03 BMP, serum or plasma 2024 025 [facility], [address], [place], [address], 05/29/2025 21:04:43 hepatic function panel, serum 2024 025 [facility], [address], [place], [address], 05/29/2025 21:04:44 CBC w/ auto diff 2024 025 [facility], [address], [place], [address], 05/29/2025 21:04:44 lipid panel, serum 2024 025 [facility], [address], [place], [address], 05/29/2025 21:04:43 PSA, serum or plasma 2024 025 [facility], [address], [place], [address], 12/10/2024 09:50:02 HbA1c (hemoglob in A1c), blood 2024 025 [facility], [address], [place], [address], 05/29/2025 21:04:45 TSH + free T4, serum 2024 025 [facility], [address], [place], [address], 05/29/2025 21:04:43 BMP, serum or plasma 2023 025 [email or web address] [facility], [address] [place], [address], 12/03/2024 18:00:34 hepatic function panel, serum 2023 025 [email or web address] [facility], [address] [place], [address], 12/03/2024 18:00:13 CBC w/ auto diff 2023 025 [email or web address] [facility], [address] [place], [address], 12/03/2024 18:00:04 lipid panel, serum 2023 025 [email or web address] [facility], [address] [place], [address], 12/03/2024 18:00:20 microalbu min/creat inine, mass ratio, urine 2023 025 [facility], [address] [place], [address], 11/27/2024 10:50:34 PSA, serum or plasma 2023 024 [email or web address] [facility], [place], [address], 11/14/2024 11:05:50 HbA1c (hemoglob in A1c), blood 2023 025 [email or web address] [facility], [place], [address], 12/03/2024 18:00:40 TSH + free T4, serum 2023 025 [email or web address] [facility], [address], [place], [address], 12/03/2024 18:00:27 BMP, serum or plasma 2023 024 [email or web address] [facility], [address], [place], [address], 11/14/2024 11:05:49 hepatic function panel, serum 2023 024 [email or web address] [facility], [address], [place], [address], 11/14/2024 11:05:50 CBC w/ auto diff 2023 024 [email or web address] [facility], [address], [place], [address], 11/14/2024 11:05:50 vitamin B12 + folate, serum or blood 2023 024 [email or web address] [facility], [address], [place], [address], 11/14/2024 11:05:50 HbA1c (hemoglob in A1c), blood 2023 024 [email or web address] [facility], [address], [place], [address], 11/14/2024 11:05:49 lipid panel, serum 2023 024 [email or web address] [facility], [address], [place], [address], 11/14/2024 11:05:50 TSH + free T4, serum 2023 024 [email or web address] [facility], [address], [place], [address], 11/14/2024 11:05:50 Referral nephrolog ist referral 2024 025 [email or web address] Florence Silvestre MD, [address], [address], [place], [address], 03/20/2025 14:17:06 Procedures None recorded. Surgeries None recorded. Imaging None recorded. Medication Orders tamsulosi n 0.4 mg capsule 2024 025 [facility], [address], [place], [address], 01/17/2025 20:47:18 Patient TargetsNo targets recorded. 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 Referral for Ch ronic kidney disease stage 3 Referring Physician: Rashmi Jackson, Internal Medicine, Encounter Date: 11/30/2024 Results Created Date Observation Date Name Description Value Unit Range Abnormal Flag Note LastModifiedBy Organization Detail LastModifiedTime 11/17/1911/18/2023 CBC W Auto Diffe renti al panel - Blood leukocytes [#/volume] in blood by automated count white blood cell count Not Available Not Available 09/20/2024 16:57:20 11/17/19 24 11/18/2023 CBC W Auto Diffe renti al panel - Blood erythrocytes [#/volume] in blood by automated count low red blood cell count Not Available Not Available 09/20/2024 16:57:20 11/17/19 24 11/18/2023 CBC W Auto Diffe renti al panel - Blood hemoglobin [mass/volume ] in blood low hemog lobin Not Available Not Available 09/20/2024 16:57:20 11/17/19 24 11/18/2023 CBC W Auto Diffe renti al panel - Blood hematocrit [volume fraction] of blood by automated count hemat ocrit Not Available Not Available 09/20/2024 16:57:20 11/17/19 24 11/18/2023 CBC W Auto Diffe renti al panel - Blood MCV [entitic volume] by automated count MCV Not Available Not Available 08/26 16:57:20 11/17/19 24 11/18/2023 CBC W Auto Diffe renti al panel - Blood MCH [entitic mass] by automated count MCH Not Available Not Available 08/26 16:57:20 11/17/19 24 11/18/2023 CBC W Auto Diffe renti al panel - Blood MCHC [mass/volume ] by automated count MCHC Not Available Not Available 08/26 16:57:20 11/17/19 24 11/18/2023 CBC W Auto Diffe renti al panel - Blood erythrocyte distribution width [ratio] by automated count RDW Not Available Not Available 08/26 16:57:20 11/17/19 24 11/18/2023 CBC W Auto Diffe renti al panel - Blood platelets [#/volume] in blood by automated count plate let count Not Available Not Available 09/20/2024 16:57:20 11/17/19 24 11/18/2023 CBC W Auto Diffe renti al panel - Blood platelet mean volume [entitic volume] in blood by adriana MPV Not Available Not Available 0 09/20/2024 16:57:20 11/17/19 24 11/18/2023 CBC W Auto Diffe renti al panel - Blood neutrophils [#/volume] in blood by automated count absol ewiiaapaayp neutr ophil s Not Available Not Available 09/20/2024 16:57:20 11/17/19 24 11/18/2023 CBC W Auto Diffe renti al panel - Blood lymphocytes [#/volume] in blood by automated count absol ewiiaapaayp lymph ocyte s Not Available Not Available 09/20/2024 16:57:20 11/17/19 24 11/18/2023 CBC W Auto Diffe renti al panel - Blood monocytes [#/volume] in blood by automated count absol ewiiaapaayp monoc ytes Not Available Not Available 09/20/2024 16:57:20 11/17/19 24 11/18/2023 CBC W Auto Diffe renti al panel - Blood eosinophils [#/volume] in blood by automated count absol ewiiaapaayp eosin ophil s Not Available Not Available 09/20/2024 16:57:20 11/17/19 24 11/18/2023 CBC W Auto Diffe renti al panel - Blood basophils [#/volume] in blood by automated count absol ewiiaapaayp basop hils Not Available Not Available 09/20/2024 16:57:20 11/17/19 24 11/18/2023 CBC W Auto Diffe renti al panel - Blood neutrophils/ 100 leukocytes in blood by automated count neutr ophil s Not Available Not Available 09/20/2024 16:57:20 11/17/19 24 11/18/2023 CBC W Auto Diffe renti al panel - Blood lymphocytes/ 100 leukocytes in blood by automated count lymph ocyte s Not Available Not Available 09/20/2024 16:57:20 11/17/19 24 11/18/2023 CBC W Auto Diffe renti al panel - Blood monocytes/10 0 leukocytes in blood by automated count monoc ytes Not Available Not Available 09/20/2024 16:57:20 11/17/19 24 11/18/2023 CBC W Auto Diffe renti al panel - Blood eosinophils/ 100 leukocytes in blood by automated count eosin ophil s Not Available Not Available 09/20/2024 16:57:20 11/17/19 24 11/18/2023 CBC W Auto Diffe renti al panel - Blood basophils/10 0 leukocytes in blood by automated count basop hils Not Available Not Available 09/20/2024 16:57:20 11/17/19 24 11/18/2023 Hepat ic funct ion 2000 panel - Serum or Plasm a protein [mass/volume ] in serum or plasma prote in, total Not Available Not Available 09/20/2024 16:57:20 11/17/19 24 11/18/2023 Hepat ic funct ion 2000 panel - Serum or Plasm a albumin [mass/volume ] in serum or plasma album in Not Available Not Available 09/20/2024 16:57:20 11/17/19 24 11/18/2023 Hepat ic funct ion 1999 panel - Serum or Plasm a globulin [mass/volume ] in serum by calculation globu alvaro Not Available Not Available 09/20/2024 16:57:20 11/17/19 24 11/18/2023 Hepat ic funct ion 1999 panel - Serum or Plasm a albumin/glob ulin [mass ratio] in serum or plasma album in/gl obuli n ratio Not Available Not Available 09/20/2024 16:57:20 11/17/19 24 11/18/2023 Hepat ic funct ion 1999 panel - Serum or Plasm a bilirubin.to maria elena [mass/volume ] in serum or plasma bilir ubin, total Not Available Not Available 09/20/2024 16:57:20 11/17/19 24 11/18/2023 Hepat ic funct ion 1999 panel - Serum or Plasm a bilirubin.di rect [mass/volume ] in serum or plasma bilir ubin, direc t Not Available Not Available 09/20/2024 16:57:20 11/17/19 24 11/18/2023 Hepat ic funct ion 1999 panel - Serum or Plasm a bilirubin.in direct [mass/volume ] in serum or plasma bilir ubin, indir ect Not Available Not Available 09/20/2024 16:57:20 11/17/19 24 11/18/2023 Hepat ic funct ion 1999 panel - Serum or Plasm a alkaline phosphatase [enzymatic activity/vol ume] in serum or plasma alkal ine phosp hatas e Not Available Not Available 09/20/2024 16:57:20 11/17/19 24 11/18/2023 Hepat ic funct ion 1999 panel - Serum or Plasm a aspartate aminotransfe rase [enzymatic activity/vol ume] in serum or plasma AST Not Available Not Available 08/26 16:57:20 11/17/19 24 11/18/2023 Hepat ic funct ion 1999 panel - Serum or Plasm a alanine aminotransfe rase [enzymatic activity/vol ume] in serum or plasma ALT Not Available Not Available 08/26 16:57:20 11/17/19 24 11/18/2023 Hemog lobin A1c/H emogl obin. total in Blood hemoglobin A1C/hemoglob in.total in blood high hemog lobin A1C Not Available Not Available 09/20/2024 16:57:20 11/17/19 24 11/18/2023 [facility] 1999 panel - Serum or Plasm a glucose [mass/volume ] in serum or plasma high gluco se Not Available Not Available 09/20/2024 16:57:20 11/17/19 24 11/18/2023 [facility] 1999 panel - Serum or Plasm a urea nitrogen [mass/volume ] in serum or plasma high urea nitro gen (BUN) Not Available Not Available 09/20/2024 16:57:20 11/17/19 24 11/18/2023 [facility] 1999 panel - Serum or Plasm a creatinine [mass/volume ] in serum or plasma high creat inine Not Available Not Available 09/20/2024 16:57:20 11/17/19 24 11/18/2023 [facility] 1999 panel - Serum or Plasm a glomerular filtration rate/1.73 sq M.predicted [volume rate/area] in serum, plasma or blood by creatinine-b ased formula (CKD-epi 2020) low eGFR Not Available Not Available 08/26 16:57:20 11/17/19 24 11/18/2023 [facility] 1999 panel - Serum or Plasm a urea nitrogen/cre atinine [mass ratio] in serum or plasma high BUN/c reati nine ratio Not Available Not Available 09/20/2024 16:57:20 11/17/19 24 11/18/2023 [facility] 1999 panel - Serum or Plasm a sodium [moles/volum e] in serum or plasma sodiu m Not Available Not Available 09/20/2024 16:57:20 11/17/19 24 11/18/2023 [facility] 1999 panel - Serum or Plasm a potassium [moles/volum e] in serum or plasma potas sium Not Available Not Available 09/20/2024 16:57:20 11/17/19 24 11/18/2023 [facility] 1999 panel - Serum or Plasm a chloride [moles/volum e] in serum or plasma chlor leroy Not Available Not Available 09/20/2024 16:57:20 11/17/19 24 11/18/2023 Basic metab olic 2000 panel - Serum or Plasm a carbon dioxide, total [moles/volum e] in serum or plasma carbo n dioxi de Not Available Not Available 09/20/2024 16:57:20 11/17/19 24 11/18/2023 Basic metab olic 2000 panel - Serum or Plasm a calcium [mass/volume ] in serum or plasma calci um Not Available Not Available 09/20/2024 16:57:20 11/17/19 24 11/18/2023 Lipid 1995 panel - Serum or Plasm a cholesterol [mass/volume ] in serum or plasma matthew stero l, total Not Available Not Available 09/20/2024 16:57:20 11/17/19 24 11/18/2023 Lipid 1995 panel - Serum or Plasm a cholesterol in HDL [mass/volume ] in serum or plasma low HDL matthew stero l Not Available Not Available 09/20/2024 16:57:20 11/17/19 24 11/18/2023 Lipid 1996 panel - Serum or Plasm a triglyceride [mass/volume ] in serum or plasma trigl yceri raudel Not Available Not Available 09/20/2024 16:57:20 11/17/19 24 11/18/2023 Lipid 1996 panel - Serum or Plasm a cholesterol in LDL [mass/volume ] in serum or plasma by calculation LDL-c holes terol Not Available Not Available 09/20/2024 16:57:20 11/17/19 24 11/18/2023 Lipid 1996 panel - Serum or Plasm a cholesterol. total/choles terol in HDL [mass ratio] in serum or plasma chol/ HDLC ratio Not Available Not Available 09/20/2024 16:57:20 11/17/19 24 11/18/2023 Lipid 1996 panel - Serum or Plasm a cholesterol non HDL [mass/volume ] in serum or plasma non HDL matthew stero l Not Available Not Available 09/20/2024 16:57:20 11/17/19 24 11/18/2023 Free T4 and TSH panel - Serum or Plasm a thyrotropin [units/volum e] in serum or plasma TSH Not Available Not Available 16:57:20 11/17/19 24 11/18/2023 Free T4 and TSH panel - Serum or Plasm a thyroxine (T4) free [mass/volume ] in serum or plasma T4, free Not Available Not Available 09/20/2024 16:57:20 11/17/19 24 11/18/2023 Micro album in/Cr eatin ine [Mass Ratio ] in Urine creatinine [mass/volume ] in urine creat inine , rando m urine Not Available Not Available 09/20/2024 16:57:20 11/17/19 24 11/18/2023 Micro album in/Cr eatin ine [Mass Ratio ] in Urine microalbumin [mass/volume ] in urine album in, urine Not Available Not Available 09/20/2024 16:57:20 11/17/19 24 11/18/2023 Micro album in/Cr eatin ine [Mass Ratio ] in Urine albumin/crea tinine [mass ratio] in urine high album in/cr eatin ine ratio , rando m urine Not Available Not Available 09/20/2024 16:57:20 05/29/20 25 05/29/2025 LIPID PANEL , STAND OYBANI cholesterol, total 121 mg/dL <200 normal Not Available [facility] [address], [address], 05/29/2025 21:04:42 05/29/20 25 05/29/2025 LIPID PANEL , STAND YOBANI HDL cholesterol 53 mg/dL > or = 40 normal Not Available [facility] [address], [address], 05/29/2025 21:04:42 05/29/20 25 05/29/2025 LIPID PANEL , STAND YOBANI triglyceride s 47 mg/dL <150 normal Not Available [facility] [address], [address], 05/29/2025 21:04:42 05/29/20 25 05/29/2025 LIPID PANEL [...] a valid ated novel metho d provi marisa paula r accur acy than the Fried osmany equat ion in the estim ation of LDL-C . Savannah curran SS et al. JOSE. 2013; 310(1 9): 2061- 206 (http ://ed ucati on.Qu estDi [employer] com/f aq/FA Q164) Not Available [facility] [address], [address], 05/29/2025 21:04:42 05/29/20 25 05/29/2025 LIPID PANEL , STAND YOBANI chol/HDLC ratio 2.3 (calc ) <5.0 normal Not Available [facility] [address], [address], 05/29/2025 21:04:42 05/29/20 25 05/29/2025 LIPID PANEL , STAND YOBANI non HDL cholesterol 68 mg/dL _(vicente c) <130 normal For patie nts with diabe denilson plus 1 major ASCVD risk facto r, treat ing to a non-H DL-C goal of <100 mg/dL (LDL- C of <70 mg/dL ) is consi zad a tatyana paige c optio n. Not Available [facility] [address] [address] [place], [address], 05/29/2025 21:04:42 05/29/20 25 05/29/2025 TSH+F REE T4 TSH 1.58 mIU/L 0.40-4 .50 normal Not Available [facility] [address] [address] [place], [address], 05/29/2025 21:04:43 05/29/20 25 05/29/2025 TSH+F REE T4 T4, free 1.1 NG/dL 0.8-1. 8 normal Not Available [address], [address], 05/29/2025 21:04:43 05/29/20 25 05/29/2025 BASIC METAB OLIC PANEL glucose 94 mg/dL 65-99 normal Fasti ng refer ence inter ailyn Not Available [address], [address], 05/29/2025 21:04:43 05/29/20 25 05/29/2025 BASIC METAB OLIC PANEL urea nitrogen (BUN) 37 mg/dL 7-25 high Not Available [address], [address], 05/29/2025 21:04:43 05/29/20 25 05/29/2025 BASIC METAB OLIC PANEL creatinine 1.86 mg/dL 0.70-1 .35 high Not Available [address], [address], 05/29/2025 21:04:43 05/29/20 25 05/29/2025 BASIC METAB OLIC PANEL eGFR 39 mL/mi n/1.7 3m2 > or = 60 low Not Available [address], [address], 05/29/2025 21:04:43 05/29/20 25 05/29/2025 BASIC METAB OLIC PANEL BUN/creatini ne ratio 20 (calc ) 6-22 normal Not Available [address], [address], 05/29/2025 21:04:43 05/29/20 25 05/29/2025 BASIC METAB OLIC PANEL sodium 138 mmol/ L 135-14 6 normal Not Available [address], [address], 05/29/2025 21:04:43 05/29/20 25 05/29/2025 BASIC METAB OLIC PANEL potassium 4.4 mmol/ L 3.5-5. 3 normal Not Available [address], [address], 05/29/2025 21:04:43 05/29/20 25 05/29/2025 BASIC METAB OLIC PANEL chloride 106 mmol/ L 98-110 normal Not Available [address], [address], 05/29/2025 21:04:43 05/29/20 25 05/29/2025 BASIC METAB OLIC PANEL carbon dioxide 26 mmol/ L 20-32 normal Not Available [address], [address], 05/29/2025 21:04:43 05/29/20 25 05/29/2025 BASIC METAB OLIC PANEL calcium 8.5 mg/dL 8.6-10 .3 low Not Available [address], [address], 05/29/2025 21:04:43 05/29/20 25 05/29/2025 HEPAT IC FUNCT ION PANEL protein, total 6.3 g/dL 6.1-8. 1 normal Not Available [address], [address], 05/29/2025 21:04:44 05/29/20 25 05/29/2025 HEPAT IC FUNCT ION PANEL albumin 4.1 g/dL 3.6-5. 1 normal Not Available [address], [address], 05/29/2025 21:04:44 05/29/20 25 05/29/2025 HEPAT IC FUNCT ION PANEL globulin 2.2 g/dL_ (calc ) 1.9-3. 7 normal Not Available [address], [address], 05/29/2025 21:04:44 05/29/20 25 05/29/2025 HEPAT IC FUNCT ION PANEL albumin/glob ulin ratio 1.9 (calc ) 1.0-2. 5 normal Not Available [address], [address], 05/29/2025 21:04:44 05/29/20 25 05/29/2025 HEPAT IC FUNCT ION PANEL bilirubin, total 0.3 mg/dL 0.2-1. 2 normal Not Available [address], [address], 05/29/2025 21:04:44 05/29/20 25 05/29/2025 HEPAT IC FUNCT ION PANEL bilirubin, direct 0.1 mg/dL < or = 0.2 normal Not Available [address], [address], 05/29/2025 21:04:44 05/29/20 25 05/29/2025 HEPAT IC FUNCT ION PANEL bilirubin, indirect 0.2 mg/dL _(vicente c) 0.2-1. 2 normal Not Available [address], [address], 05/29/2025 21:04:44 05/29/20 25 05/29/2025 HEPAT IC FUNCT ION PANEL alkaline phosphatase 99 U/L 35-144 normal Not Available [facility] [employer] [address], [address], 05/29/2025 21:04:44 05/29/20 25 05/29/2025 HEPAT IC FUNCT ION PANEL AST 24 U/L 10-35 normal Not Available [address], [address], 05/29/2025 21:04:44 05/29/20 25 05/29/2025 HEPAT IC FUNCT ION PANEL ALT 28 U/L 9-46 normal Not Available [address] [place], [address], 05/29/2025 21:04:44 05/29/20 25 05/29/2025 CBC (INCL UDES DIFF/ PLT) white blood cell count 6.0 thous and/u L 3.8-10 .8 normal Not Available [address], [address], 05/29/2025 21:04:44 05/29/20 25 05/29/2025 CBC (INCL UDES DIFF/ PLT) red blood cell count 3.92 betina on/uL 4.20-5 .80 low Not Available [facility] [address], [address], 05/29/2025 21:04:44 05/29/20 25 05/29/2025 CBC (INCL UDES DIFF/ PLT) hemoglobin 12.6 g/dL 13.2-1 7.1 low Not Available [facility] [address], [address], 05/29/2025 21:04:44 05/29/20 25 05/29/2025 CBC (INCL UDES DIFF/ PLT) hematocrit 39.0 % 38.5-5 0.0 normal Not Available [address], [address], 05/29/2025 21:04:44 05/29/20 25 05/29/2025 CBC (INCL UDES DIFF/ PLT) MCV 99.5 fL 80.0-1 00.0 normal Not Available [facility] [address], [address], 05/29/2025 21:04:44 05/29/20 25 05/29/2025 CBC (INCL UDES DIFF/ PLT) MCH 32.1 pg 27.0-3 3.0 normal Not Available [facility] [address], [address], 05/29/2025 21:04:44 05/29/20 25 05/29/2025 CBC (INCL UDES DIFF/ PLT) MCHC 32.3 g/dL 32.0-3 6.0 normal For adult s, a sligh t decre ase in the calcu lated MCHC value (in the range of 30 to 32 g/dL) is most likel y not clini erwin signi roshan t; romeo er, it shoul d be inter prete d with cauti on in corre [facility] with other red cell manuela eters and the patie nt's clini vicente condi tion. Not Available [address], [address], 05/29/2025 21:04:44 05/29/2005/29/2025 CBC (INCL UDES DIFF/ PLT) RDW 13.1 % 11.0-1 5.0 normal Not Available [address], [address], 05/29/2025 21:04:44 05/29/20 25 05/29/2025 CBC (INCL UDES DIFF/ PLT) platelet count 195 thous and/u L 140-40 0 normal Not Available [address], [address], 05/29/2025 21:04:44 05/29/20 25 05/29/2025 CBC (INCL UDES DIFF/ PLT) MPV 10.7 fL 7.5-12 .5 normal Not Available [address], [address], 05/29/2025 21:04:44 05/29/20 25 05/29/2025 CBC (INCL UDES DIFF/ PLT) absolute neutrophils 4170 cells /uL 1500-7 800 normal Not Available [address], [address], 05/29/2025 21:04:44 05/29/20 25 05/29/2025 CBC (INCL UDES DIFF/ PLT) absolute lymphocytes 936 cells /uL 850-39 00 normal Not Available [address], [address], 05/29/2025 21:04:44 05/29/20 25 05/29/2025 CBC (INCL UDES DIFF/ PLT) absolute monocytes 522 cells /uL 200-95 0 normal Not Available [address], [address], 05/29/2025 21:04:44 05/29/20 25 05/29/2025 CBC (INCL UDES DIFF/ PLT) absolute eosinophils 312 cells /uL 15-500 normal Not Available [address], [address], 05/29/2025 21:04:44 05/29/20 25 05/29/2025 CBC (INCL UDES DIFF/ PLT) absolute basophils 60 cells /uL 0-200 normal Not Available [address], [address], 05/29/2025 21:04:44 05/29/20 25 05/29/2025 CBC (INCL UDES DIFF/ PLT) neutrophils 69.5 % normal Not Available [address], [address], 05/29/2025 21:04:44 05/29/20 25 05/29/2025 CBC (INCL UDES DIFF/ PLT) lymphocytes 15.6 % normal Not Available [address], [address], 05/29/2025 21:04:44 05/29/20 25 05/29/2025 CBC (INCL UDES DIFF/ PLT) monocytes 8.7 % normal Not Available [address], [address], 05/29/2025 21:04:44 05/29/20 25 05/29/2025 CBC (INCL UDES DIFF/ PLT) eosinophils 5.2 % normal Not Available [facility] [address] [address] [place], [address], 05/29/2025 21:04:44 05/29/20 25 05/29/2025 CBC (INCL UDES DIFF/ PLT) basophils 1.0 % normal Not Available [facility] [address] [place], [address], 05/29/2025 21:04:44 05/29/20 25 05/29/2025 HEMOG LOBIN A1C hemoglobin A1C 6.8 %_of_ [...] diabe denilson for child christine. Not Available [facility] [address] [address] [place], [address], 05/29/2025 21:04:45 06/25/20 24 06/23/2024 XR, hip + pelvi s, unila teral , 2 or 3 view No observ ation record ed. CHRISTIANO [facility] [address], [place], [address], 06/25/2024 15:25:54 08/08/19 25 08/08/2024 MRI, lumba r spine , w/o contr ast No observ ation record ed[facility] [address], [place], [address], 08/10/2024 14:47:23 10/06/19 25 10/05/2024 XR, chest , 2 view No observ ation record ed. CHRISTIANO [facility] [address], [place], [address], 10/10/2024 14:43:08 02/28/20 25 02/20/2025 US, kidne y No observ ation record ed. [facility] [address], [place], [address], 02/27/2025 10:17:25 Result Notes None recorded. Problems Name Problem SNOMED Code Status Onset Date Resolution Date Notes Provider Name and Address Organization Details Recorded Time Type 2 diabetes mellitus without complicatio n 359475313 Active 2023 ROSEANNE Kramer Attn: Amy burgess,[address] 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, [place], [address], [facility] - [facility] 4 09:30:54 History of aortic valve replacement 3397806090501 Active 2023 ROSEANNE Kramer Attn: Amy burgess,[address] [facility] [address], [place], [address], [place] [facility] 4 09:30:56 Benign essential hypertensio n 3558205 Active 2023 ROSEANNE Kramer Attn: Amy g,[address] [facility], [place], [address], [place] [facility] 4 09:30:57 Chronic kidney disease stage 3 240704995 Active 2023 ROSEANNE Kramer Attn: Accountin g,[address] [facility], [place], [address], [place] [facility] 4 09:30:59 Hypothyroid ism 03371439 Active 2023 ROSEANNE Kramer Attn: Accountin g,[address] [facility] [address], [place], [address], [place] [facility] 4 09:31:00 Hyperlipide marcella 82682013 Active 2023 ROSEANNE Kramer Attn: Accountin g,[address] [facility] [address], [place], [address], [place] [facility] 4 09:31:01 Asthma 052046308 Active 2023 ROSEANNE Kramer Attn: Accountin g,[address] [facility] [address], [place], [address], [place] [facility] 4 09:31:03 Hereditary essential tremor 935185280 Active 2023 ROSEANNE Kramer Attn: Accountin g,[address] [facility] [address], [place], [address], [place] [facility] 4 09:31:04 Long-term drug therapy Active 2023 ROSEANNE Kramer Attn: Accountin g,[address] [facility] [address], [place], [address], [place] [facility] 4 09:31:06 Family history of malignant neoplasm of prostate 302043652 Active 2023 ROSEANNE Kramer Attn: Accountin g,[address] [facility] [address], [place], [address], [place] [facility] 4 09:02:02 Body mass index 25-29 - overweight 685347880 Active 2023 ROSEANNE Kramer Attn: Accountin g,[address] [facility] [address], [place], [address], [place] [facility] 4 15:56:09 Overweight 468559501 Active 2024 ROSEANNE Kramer Attn: Amy burgess,[address] [facility], [place], [address], [facility] 5 09:05:13 Normal pressure hydrocephal 61370653 Active 2024 ROSEANNE Kramer Attn: Amy burgess,[address] [place], [address], [facility] - [facility] 5 09:16:14 Device in situ 062520250 Active 2024 ROSEANNE Kramer Attn: Amy burgess,[address] [place], [address], [facility] 5 09:16:15 Erectile dysfunction 612336250 Active 2024 ROSEANNE Kramer Attn: Amy burgess,[address] [place], [address], [facility] - [facility] 5 01:14:51 Delay when starting to pass urine 2737641 Active 2024 ROSEANNE Kramer Attn: Amy burgess,[address] [place], [address], [facility] 5 01:14:53 Problem Notes None recorded. Procedures Surgical History Date Name Laterality Status Provider Name and Address Organization Details Recorded Time Heart Surgery completed Jose Alberto Simental MA [facility] 12/02/2023 09:36:06 Imaging Results None recorded. Procedure Notes None recorded. Medical Equipment None Reported. Allergies Allergen ID Allergen Name Allergen Category Reaction Reaction Severity Criticality Documentation Date Start Date Code Code System Note Provider Name and Address Organization Details Recorded Time 555209 aspirin medicatio n Not available Not available Not available 11/30/2023 1191 RxNorm Jose Alberto Simental MA [facility], [facility] 4 12:01:28 818552 doxycycli ne Not available rash Not available low 05/21/20252020 3640 RxNorm React ion: rash, Not Available christiano - [employer] - prod 12:01:02 051394 levofloxa caleb medicatio n Not available Not available Not available 05/21/20252020 76920 RxNorm Not Available christiano - External Data [employer] - prod 12:01:02 813573 lisinopri l medicatio n cough Not available low 05/21/20252020 15202 RxNorm React ion: cough , Not Available [facility] External Data Service - [facility] 12:01:02 Medications Name Sig Start Date Stop [...] and Address Organization Details Last Updated DateTime 11/30/2024 16 /min 150/80 mm[Hg] ROSEANNE Kramer Attn: Accounting,[address] [place], [address], [facility] 11/30/2024 09:28:26 Date Recorded Body height Body mass index (BMI) Body weight Oxygen saturation Heart rate Systolic And Diastolic Provider Name and Address Organization Details Last Updated DateTime 177.8 cm 25.5 kg/m2 44482.4 4 g 99 % 75 /min 150/82 mm[Hg] Jose Alberto Simental MA [facility] 5 09:01:10 Date Recorded Systolic And Diastolic Provider Name and Address Organization Details Last Updated DateTime 12/02/2023 132/70 mm[Hg] ROSEANNE Kramer Attn: Accounting,[address] [place], [address], [facility] 12/02/2023 09:26:25 Date Recorded Body height Body mass index (BMI) Body weight Respiratory rate Oxygen saturation Heart rate Systolic And Diastolic Provider Name and Address Organization Details Last Updated DateTime 177.8 cm 27.4 kg/m2 94505.1 4 g 20 /min 97 % 67 /min 132/78 mm[Hg] Jose Alberto Simental MA [facility] 4 09:01:17 Date Recorded Systolic And Diastolic Provider Name and Address Organization Details Last Updated DateTime 06/01/2024 150/80 mm[Hg] ROSEANNE Kramer Attn: Accounting,[address] [place], [address], [facility] 06/01/2024 09:07:07 Date Recorded Body height Body mass index (BMI) Body weight Respiratory rate Oxygen saturation Heart rate Systolic And Diastolic Provider Name and Address Organization Details Last Updated DateTime 177.8 cm 27.1 kg/m2 87739.9 6 g 20 /min 100 % 64 /min 148/80 mm[Hg] Jose Alberto Simental MA [facility] 16:41:47 Date Recorded Respiratory rate Systolic And Diastolic Provider Name and Address Organization Details Last Updated DateTime 06/07/2025 16 /min 136/80 mm[Hg] ROSEANNE Kramer Attn: Accounting, [place], [address], [facility] 06/07/2025 08:53:11 Date Recorded Body height Provider Name an d Address Organization Details Last Updated DateTime 06/07/2025 177.8 cm Anjali Alcocer [facility] 06/07/20 25 08:13:27 Date Recorded Body mass index (BMI) Body weight Oxygen saturation Heart rate Systolic And Diastolic Provider Name and Address Organization Details Last Updated DateTime 06/07/2025 24.9 kg/m2 99662.2 g 97 % 96 /min 140/72 mm[Hg] Jasmine Quiñones MA [facility] 5 08:33:03 Social History Question Answer Notes LastModified by Organizat ion Details LastModified Time Tobacco Smoking Status Never Smoker Jose Alberto Simental MA [facility], [place] - [facility] 11/30/2023 12:01:38 Do You Have An Advance [...] anxious, or unable to sleep at night)? [id number] Information not available 11/30/2023 Family History Relationship [...] Response Coronary Artery Disease N Other N Atrial Fibrillation N High Blood Pressure Y Thyroid Problems N Kidney or Bladder Problems Y Depression N COPD N Blood Clots N GI Problems N Skin Problems N Anemia N Heart Attack (MD) N Diabetes Y Anxiety Disorder N Muscle, Joint, or Bone Problems N Seizures/Epilepsy N Acid Reflux (GERD) N Cancer N Stroke N Allergies N Asthma Y High Cholesterol N Hepatitis N Liver Disease N Headaches N Osteoporosis N Heart Failure N Immunizations Vaccine Type Date Status Note Provider Nam e and Address Organization Details Recorded Time Influenza, recombinant, quadrivalent, PF 0 completed JAIME Monk, [place] [facility] 06/01/2024 08:40:52 Influenza, recombinant, quadrivalent, PF 9 completed JA[place] [facility] 06/01/2024 08:40:52 zoster recombinant 0 completed JA[place] [facility] 06/01/2024 08:40:52 zoster recombinant 9 completed JAIME [place] [facility] 06/01/2024 [...] [facility] 06/01/2024 08:40:52 Pneumococcal conjugate PCV20, polysaccharide [id number] conjugate, adjuvant, PF 2 completed JAIME Monk, [...] Influenza, split virus, quadrivalent, PF 1 completed Jose Alberto Simental MA null, [facility] 06/01/2024 08:40:52 Influenza, split virus, quadrivalent, PF 8 completed Jose Alberto Simental MA null, [facility] 06/01/2024 08:40:52 Past Encounters Encounter ID Performer Location Encounter Start Date Encounter Closed Date Diagnosis/Indication Diagnosis SNOMED-CT Code Diagnosis ICD10 Code Diagnosis IMO Codes Diagnosis Note [id number] Mikael Morin MD [facility] [employer] [address] [employer] [place] [address] 12/02/2023 08:40:40 12/02/2023 09:49:58 History of aortic valve replacement 2705456559 100 Z95.4 hx noted. Hereditary essential tremor 488837382 G25.0 mostly left hand. stable on medication . Hypothyroidism 92038100 E03.9 stable on thyroid supplement . due for TFTs. Benign ess ential hypertension 5386254 I10 stable on multiple agents. partially managed by cardiology . Hyperlipidemia 99514518 E78.5 stable on statin therapy. due for fasting lipids. Asthma 413134300 J45.90 9 stable on breo therapy. Long-term drug therapy 832459580 Z79.899 cmp, cbc and b12, folate labs are due Type 2 dong betes mellitus without complication 174418044 E11.9 due for updated a1c. stable on jardiance 25mg daily. Microalbum inuria due to type 2 diabetes mellitus 0226738220 9102 E11.29 stable on valsartan 320mg daily. Chronic ki dney disease stage 3 253742175 N18.30 due for bmp labs. following with nephrology . [id number] Mikael Morin MD [facility] [employer] [address] [employer] [place] [address] 06/01/2024 08:30:02 06/04/2024 16:28:43 Type 2 diabetes mellitus without complication 103316091 E11.9 6.5% A1c on recent labs. stable on jardiance 25mg daily. Next labs due October Microalbum inuria due to type 2 diabetes mellitus 1702043825 9102 E11.29 stable on valsartan 320mg daily. Annual microalbum in will be due in October History of aortic valve replacement 9691256779 100 Z95.4 hx noted. Benign ess ential hypertension 2640867 I10 stable on multiple agents. partially managed by cardiology . Chronic ki dney disease stage 3 312705829 N18.30 due for bmp labs. following with nephrology . 1.9 creatinine on recent labs Hypothyroidism 28934370 E03.9 stable on thyroid supplement . Repeat thyroid function panel in October Hyperlipidemia 36975334 E78.5 Very stable on statin therapy with labs in controlled range. Next fasting lipids also due in October Asthma 976556534 J45.90 9 stable on breo therapy. Hereditary essential tremor 830609152 G25.0 mostly left hand. stable on medication . Long-term drug therapy 603098603 Z79.899 Screening for malignant neoplasm of prostate 851014389 Z12.5 Annual PSA will be due now Family his tory of malignant neoplasm of prostate 701801871 Z80.42 father dx in 70's. Body mass index 25-29 - overweight 224784566 Z68.27 BMI is 27.1 Overweight 990749699 E66 .3 [id number] Mikael Morin MD [facility] [place] [address] [place] [address] 11/30/2024 08:50:40 11/30/2024 10:42:35 Body mass index 25-29 - overweight 972095813 Z68.27 BMI is 25.5 Overweight 792965521 E66 .3 Continue diet and exercise Benign ess ential hypertension 5881498 I10 stable on multiple agents. partially managed by cardiology . 120-130 systolic ranges at home always. nerves during appt times. Type 2 dong betes mellitus without complication 675711837 E11.9 7.1% a1c on recent labs. stable on jardiance 25mg daily. Next A1c due in May Microalbum inuria due to type 2 diabetes mellitus 1063705822 9102 E11.29 stable on valsartan 320mg daily History of aortic valve replacement 3109728636 100 Z95.4 hx noted. Chronic ki dney disease stage 3 127183265 N18.30 due for bmp labs. He doesn't want to see the previous nephrologi st and would like to see another option locally. we will refer to dr. florence silvestre. Hypothyroidism 58012267 E03.9 stable on thyroid supplement . Repeat thyroid function panel in October Hyperlipidemia 58023735 E78.5 Very stable on statin therapy with labs in controlled range. Next fasting lipids also due in October Asthma 802313837 J45.90 9 stable on breo therapy. Hereditary essential tremor 066339542 G25.0 mostly left hand. stable on medication . Long-term drug therapy 725009688 Z79.899 Routine labs due in May Screening for malignant neoplasm of prostate 769112839 Z12.5 Annual PSA will be due now Family his tory of malignant neoplasm of prostate 908106490 Z80.42 father dx in 70's. Device in situ 905994821 Z98.2 149070 hx noted. Normal pre ssure hydrocephalus 00831725 G91.[address] [place] Delay when starting to pass urine 3538004 R39.11 064171 Start trial of tamsulosin 0.4 mg daily Erectile dysfunction 860 526723 N52.9 78925372 Question starting cialis 5 mg daily if Cardiology approves and medication can be changed from long-actin g nitrate [id number] ROSEANNE Kramer [facility] [place] [address] [place] [address] 06/07/2025 08:05:55 06/07/2025 08:56:20 Type 2 diabetes mellitus without complication 193426246 E11.9 6.8% a1c on recent labs. stable on jardiance 25mg daily. Next A1c due in november Microalbum inuria due to type 2 diabetes mellitus 8060594760 9102 E11.29 stable on valsartan 320mg daily continue dosing check albumin also in November Chronic ki dney disease stage 3 504465909 N18.30 due for bmp labs. He doesn't want to see the previous nephrologi st and would like to see another option locally. we will refer to dr. florence silvestre. Benign ess ential hypertension 9501406 I10 stable on multiple agents. partially managed by cardiology . 120-130 systolic ranges at home always. nerves during appt times. Hypothyroidism 32292089 E03.9 stable on thyroid supplement . Repeat thyroid panel in November 2025 Hyperlipidemia 84962195 E78.5 Very stable on statin therapy with labs in controlled range. Repeat fasting labs in November Asthma 866734458 J45.90 9 stable on breo therapy. Hereditary essential tremor 142483331 G25.0 mostly left hand. stable on medication . History of aortic valve replacement 4070020606 100 Z95.4 hx noted. Overweight 301624841 E66 .3 Continue diet and exercise Long-term drug therapy 243553475 Z79.899 next labs due in november Screening for malignant neoplasm of prostate 650809591 Z12.5 Annual PSA ordered for early summer as well Family his tory of malignant neoplasm of prostate 594071301 Z80.42 father dx in 70's. Device in situ 795133873 Z98.2 333342 hx noted. Normal pre ssure hydrocephalus 23224005 G91.[address] [place] Delay when starting to pass urine 4715135 R39.11 408252 Following with urology Erectile dysfunction 860 577102 N52.9 51616678 Tadalafil 5 mg daily on board Health Concerns Section Related Observation LastModified by Organization Detai ls LastModified Time None Recorded Concern Status LastModified by Organization Details LastModified Time None Recorded Advance Directives Directive Y: Payers Insurance Date Sequence Insurance Name Policy Number Policy Parry Covered Member ID Parry Member ID Guarantor Name 06/25/2025 1 [employer] (MEDICARE REPLACEMENT/ ADVANTAGE - PPO) [id number] Mikael oRb [id number] Mikael Rob Notes Date Note Type Note Provider Name and Address Organization Details Recorded Time 4 text/html HyperlipidemiaReported by Patientpt is taking rosuvastatin 20mg daily. due for labs. HypertensionReported by Patientstable on valsartan 320mg , coreg, furosemide, isosorbide mononitrate. DiabetesReported by Patientstable on jardiance 25mg daily. Asthma F/UReported by Patientpt is stable on breo ellipta 100/25mcg dosing. ThyroidReported by Patientpt is taking levothyroxine 50mcg daily. Essential tremor hx. on primidone and topamax.Hx of Aortic valve replacement. follows routinely with cardiology.CKD hx. follows with nephrology. ROSEANNE Kramer Attn: Accounting,[address], [place], [address], [facility] 03/01/2024 17:49:16 4 text/html HyperlipidemiaReported by Patientpt is taking rosuvastatin 20mg daily. due for labs. HypertensionReported by Patientstable on valsartan 320mg , coreg, furosemide, isosorbide mononitrate. DiabetesReported by Patientstable on jardiance 25mg daily. Asthma F/UReported by Patientpt is stable on breo ellipta 100/25mcg dosing. ThyroidReported by Patientpt is taking levothyroxine 50mcg daily. Essential tremor hx. on primidone and topamax.Hx of Aortic valve replacement. follows routinely with cardiology.CKD hx. follows with nephrology. ROSEANNE Kramer Attn: Accounting,[address], [place], [address], [facility] 06/21/2024 15:56:27 5 text/html HyperlipidemiaReported by Patientpt is taking rosuvastatin 20mg daily. due for labs. HypertensionReported by Patientstable on valsartan 320mg , coreg, furosemide, isosorbide mononitrate. DiabetesReported by Patientstable on jardiance 25mg daily. Asthma F/UReported by Patientpt is stable on breo ellipta 100/25mcg dosing. ThyroidReported by Patientpt is taking levothyroxine 50mcg daily. Essential tremor hx. on primidone and topamax.Hx of Aortic valve replacement. follows routinely with cardiology.CKD hx. follows with nephrology. ROSEANNE Kramer Attn: Accounting,[address], [place], [address], [facility] 12/18/2024 01:15:35 5 text/html HyperlipidemiaReported by PatientHPIFor duration, patient [...] with nephrology. ROSEANNE Kramer Attn: Accounting,[address], [place], [address], [facility] 06/23/2025 15:27:35
--- OUTSIDE RECORDS SUMMARY | 2025-07-15 07:54 | XMS_ITS | Patient Health Record ---
Author Organization [facility] Office Address [address] [place] [address] Support Name Relationship Address Phone JULI STEVE Guarantor Unknown [phone] Reason For Referral No Information Medications Medication SIG (Take, Route, Fr equency, Duration) Notes Start Date End Date Status Furosemide 40 MG Take 1 tablet by jenna th once daily; Duration: 90 Active Lasix 40 MG 1 tablet Orally Once a day; Duration: 90 day(s) Active Problems Problem Type SNOMED Code ICD Code Onset Dates Problem Status W/U Status Risk Notes Problem Hypothyroidism (97606265) Hypothyroidism, unspecified (E03.9) Active confirmed Problem Hyperglycemia due to type 2 diabetes mellitus (754017771598521) Type 2 diabetes mellitus with hyperglycemia (E11.65) Active confirmed Problem Hyperuricemia without signs of inflammatory arthritis and tophaceous disease (954678299) Hyperuricemia without signs of inflammatory arthritis and tophaceous disease (E79.0) Active confirmed Problem Essential hypertension (13638967) Essential (primary) hypertension (I10) Active confirmed Problem Chronic kidney disease stage 3B (disorder) (706885859) Chronic kidney disease, stage 3b (N18.32) Active confirmed Plan Of Treatment Pending Test Test Name Order Date PTH, INTACT AND CALCIUM (8837) 4 RENAL FUNCTION PANEL (91731) 09/22/2023 URIC ACID (905) 09/22/2023 PROTEIN, TOTAL W/CREAT, RANDOM URINE (17 15) 09/22/2023 CBC (INCLUDES DIFF/PLT) (6399) URINALYSIS, COMPLETE W/REFLEX TO CULTURE (3020) 09/22/2023 VITAMIN D,25-OH,TOTAL,IA (74841) 024 REFLEXIVE URINE CULTURE 09/22/2023
[2025-07-15 08:11] LABS: Hematocrit 42.2 % (42.0-52.0); Hemoglobin 13.6 g/dL (14.0-18.0)
[2025-07-15 08:22] LABS: INR 1.0; Prothrombin Time 13.3 Seconds (11.1-14.7)
[2025-07-15 08:24] LABS: Partial Thromboplastin Time 28.9 Seconds (22.3-36.8)
[2025-07-15 08:31] LABS: Anion Gap 6 mmol/L (4-12); Blood Urea Nitrogen 31 mg/dL (9-20); Calcium 9.2 mg/dL (8.4-10.2); Carbon Dioxide 26 mmol/L (22-30); Chloride 108 mmol/L (98-107); Estimated Glomerular Filt Rate 41; Glucose 118 mg/dL (65-110); Potassium 4.8 mmol/L (3.4-5.0); Sodium 140 mmol/L (137-145)
== END 2025-07-15 07:47 | disposition home or self-care (01) ==
LOC: ANHSURGERY 07:50
PROVIDERS: Anesthesiology; PCP Physician Assistant; Visit Provider Urology
DX: D64.9 Anemia, unspecified (principal); E11.9 Type 2 diabetes mellitus without complications; Z01.818 Encounter for other preprocedural examination; I12.9 Hypertensive chronic kidney disease with stage 1 through stage 4 chronic kidney disease, or unspecified chronic kidney disease; N18.9 Chronic kidney disease, unspecified
CPT/HCPCS: 36415; 80048; 85014; 85018; 85610; 85730; 93005

== ENCOUNTER 2025-07-19 00:23 | Day surgery (SDC) | payer MEDICARE, SELFPAY ==
--- OUTSIDE RECORDS SUMMARY | 2024-05-07 08:15 | XMS_ITS ---
Author Organization [facility] Address [address] [place] [address] Care Team Providers Care Meat Pumper Name Role Phone Luis CarlosNasra gonzalezhit Unavailable [phone] Encounters Encounter Location Date Provider Diagnosis [facility] [place] [facility] [address] [place] [address] 05/07/2024 Mary Garces Plan Of Treatment No Information Progress Notes * STEVEJULIDOB: (70 yo M)Acc No.[id number]:05/07/2024 Progress Notes Patient: JULI MYERS Provider: Arabella GARCES M.D :1955 A ge:69 Y S ex:Male Date:05/07/2024 [facility] Subjective: * Chief Complaints: * * Medical History: Objective: * Vitals: Assessment: Plan: * Treatment: * Billing Information: * Visit Code: * Procedure Codes: * Electronic signature of Arabella Garces MD on 07/19/2025 at 12:26 AM SMOKE JUMPER SUPERVISOR Sign off status: Pending * Provider: Arabella GARCES M.D Date: Generated for Vitai bryan/Anthony/eTransmitting on: 09/19/2024 12:26 AM SMOKE JUMPER SUPERVISOR
--- OUTSIDE RECORDS SUMMARY | 2024-06-04 09:30 | XMS_ITS ---
Author Organization [facility] Address [address] [facility] [address] [facility] [address] [place] [address] Care Team Providers Care Family Therapist Name Role Phone Luis Carlos Mary Unavailable [phone] dewitt 05/07/24 Encounters Encounter Location Date Provider Diagnosis [place] [facility] [address] [facility] [address] [place] [address] 06/04/2024 Mary Garces Plan Of Treatment No Information Progress Notes * EVI JULIDOB: 7 (70 yo M)Acc No.[id number]:06/04/2024 Progress Notes Patient: JULI MYERS Provider: Arabella GARCES M.D :1955 A ge:69 Y S ex:Male Date:06/04/2024 [facility] Subjective: * Chief Complaints: * [address] dewitt 05/07/24. * Medical History: Objective: * Vitals: Assessment: Plan: * Treatment: * Billing Information: * Visit Code: * Procedure Codes: * Electronic signature of Arabella Garces MD on 07/19/2025 at 12:26 AM WICKER MOLDED CANDLES Sign off status: Pending * Provider: Arabella GARCES M.D Date: 08/04/2023 Generated for Pierre adams/Anthony/Julian on: 09/19/2024 12:26 AM WICKER MOLDED CANDLES
--- NOTE | 2025-07-08 15:20 | PC.NURSE ---
[facility] has started construction of its new state of the art ER which will open Spring 2026. With this, we anticipate parking may be a challenge for some our surgical patients and families. Parking spaces are limited but are available for all Surgical, obstetrics, and ER patients sharing this lot. If you arrive and find you are having a hard time finding a parking space, please note that we understand the challenges, please drive around the hospital and park near Hospital Entrance 1. When you enter this entrance, you can ask a volunteer to direct or take you back to the surgical waiting area to check in. We appreciate everyone?s understanding of these expected challenges while we build for your future. Report to the Outpatient Waiting Room, entrance under the green pavilion located off [address], at time ___6 AM____ on date __07/19/25 . Planned Procedure Time: __7:30 AM .? Time changes happen often and if your time is changed the preop area will call you the afternoon before. - You and your visitor will be asked to self-screen and do not enter if you have any COVID symptoms. Please call surgeon if you need to reschedule. - A mask is optional within the hospital at this time. Patients may have clear liquids (water, carbonated beverages, clear teas, apple juice) until 3 hours prior to surgery(4:30 AM) with a maximum of 20 ounces. - No food from midnight until time of surgery and no smoking, or chewing tobacco (or any form of nicotine). No chewing gum, candy or mints. Take only the following medications with a SIP of water on the morning of surgery: ____,LEVOTHYROXINE,PRIMIDONE,TOPIRAMATE DO NOT STOP ANY OF YOUR OTHER PRESCRIPTION MEDICATIONS PRIOR TO SURGERY EXCEPT THE FOLLOWING Hold all vitamins and supplements for 3 days per anesthesiologist.LAST DOSE 07/15/25 Medications to discontinue per physician ____PLAVIX PER DR HENDERSON PT STATES WILL CALL DR ADLER-TARGET PROTECTION SPECIALIST Date to take last dose Please no make-up, nail guatemalan, hairspray, perfume, deodorant, or body powder the day of surgery.? No jewelry (including any body piercings) or valuables the day of surgery, leave them at home.? Please take a shower or bath the night before, or the morning of, surgery with an antibacterial soap.? Wear comfortable, loose fitting clothing.? Children are encouraged to wear pajamas. - Jewelry must be removed prior to entering the operating room.? Rings and piercings that are not removed may be cut off. - The hospital will not accept responsibility for valuables.? - Please leave all valuables, including medications, at home the day of surgery. If you are going home after surgery, a licensed buggy driver must drive you home.? - NO public transportation without another adult if you receive anesthesia. - We recommend that an adult stay with you for 24 hours following discharge. - We also recommend that you do not drive, make important decision, drink alcoholic beverages, or take any drugs that were not prescribed by your health care provider for at least 24 hours after your discharge time. For Pediatric surgeries, we recommend two adults accompany the child home. Follow any additional instructions given to you from your surgeon. Telephone instructions given to __PATIENT and asked if any additional questions and then verbalized understanding. Patient advised to call surgeon office or pre surgery nurse liaison [phone] if any additional questions.
[2025-07-08 15:42] VITALS: BMI 24.4
[2025-07-19] VITALS (11 sets, daily range): BP systolic 105–162; BP diastolic 53–94; PULSE 73–107; RESP 11–16; TEMP 35.9–36.6; O2SAT 93–99
--- OUTSIDE RECORDS SUMMARY | 2025-07-19 00:26 | XMS_ITS | Clinical Summary ---
Author Organization [facility] [address] Address [address] [place] [address] Care Team Providers Care Manager Technical Name Role Phone Ty Jin MD Primary [...] (03/21/2019): Added automatically from request for surgery [id number] Acquired hypothyroidism 09/30/2017 Assessment & Plan (10/15/2020 [...] euthyroid Assessment & Plan (09/30/2017 10:23 AM CLINICAL NURSING PROFESSOR): Continue levothyroxine 50 mcg daily. TSH today. Monitor q.6 months if biochemically euthyroid History of aortic valve replacement 07/21/2017 BMI 31.0-31.9,adult 05/05/2017 Assessment & Plan (05/09/2018 11:32 AM CDT): BMI Follow-up includes: nutrition counseling and exercise counseling. Assessment & Plan (01/06/2018 9:52 AM CDT): BMI Follow-up includes: nutrition counseling, exercise counseling and education provided. Assessment & Plan (09/30/2017 10:18 AM CLINICAL NURSING PROFESSOR): BMI Follow-up includes: nutrition counseling and exercise counseling. Assessment & Plan (07/04/2017 10:42 AM CLINICAL NURSING PROFESSOR): Body mass index is 30.33 kg/m . [...] atorvastatin Assessment & Plan (09/30/2017 10:19 AM CLINICAL NURSING PROFESSOR): LDL at goal on atorvastatin. Assessment & Plan (07/04/2017 10:42 AM CLINICAL NURSING PROFESSOR): Currently on atorvastatin. Assessment & Plan (05/05/2017 2:20 PM CDT): LDL at goal on atorvastatin. Assessment & Plan (03/05/2017 4:23 PM CDT): Controlled on atorvastatin. Vitamin D deficiency 02/25/2017 Assessment & Plan (01/08/2018 9:10 AM CDT): Continue vitamin-D 2000 units daily. Re-evaluate in 3 months Assessment & Plan (07/04/2017 10:46 AM CLINICAL NURSING PROFESSOR): He is currently on [id number] vitamin D 1000 units daily. Will continue [...] month Assessment & Plan (09/30/2017 10:20 AM CLINICAL NURSING PROFESSOR): Well controlled, hemoglobin A1c is 6% last [...] months Assessment & Plan (07/04/2017 10:45 AM CLINICAL NURSING PROFESSOR): Patient has a history of diabetes diagnosed [...] tolerated. Assessment & Plan (09/30/2017 10:19 AM CLINICAL NURSING PROFESSOR): Stable on current regimen. Assessment & Plan (07/04/2017 10:41 AM CLINICAL NURSING PROFESSOR): BP is stable. Assessment & Plan (05/05/2017 [...] Other Medical MRSA Asthma Asthma; Comments : [facility] 03/26/2014 - Hypertension Hypertension Hx Other Medical Diabetes; Comme nts: [facility] 03/26/2014 - Type 2 diabetes mellitus Diabete s type 2 Asthma Asthma Hx Other Medical vomitting, diar rehea, could not eat; Comments: [facility] 09/13/2014 - Hx Other Medical Sinus surgery Hx Other Medical pic line placme nt Hx Other Medical cellulitis Hx Other Medical 11/04/2016 dehydration uns table confused in [place]; Comments: [facility] 12/16/2016 - CKD (chronic kidney [...] on file Legal Sex Male 6:28 PM CLINICAL NURSING PROFESSOR Gender Identity Not on file Sexual Orientation [...] Insurance MEDICARE [employer] [place] [address] [email or web address] [facility] MEDICARE Advance Directives For more information, please contact: [phone] * Full Code (Latest Code Status on File) Date Activated Date Inactivated Comments 05/04/2019 8:47 AM 05/04/2019 3:42 PM * Full Code Date Activated Date Inactivated Comments 05/04/2019 8:47 AM 05/04/2019 8:47 AM Care Teams Manager Technical Relationship Specialty Start Date End Date Ty Jin MD PCP - General 05/31/17
--- OUTSIDE RECORDS SUMMARY | 2025-07-19 00:26 | XMS_ITS | Data Portability ---
Author Organization [place] - [facility], Main Office Address [address] [place] [address] Assessment No assessment recorded. Plan of Treatment Reminders Order Date Submit Date Provider Last Modified By Organization Details Last Modified Time Details Appointments None recorded. Lab HbA1c (hemoglobin A1c), blood 2022 024 [email or web address] Not available 5 09:23:35 microalbumi n/creatinin e, ratio, urine 2022 024 [email or web address] [facility] (Lab), [address] [place], [address], 5 09:23:35 microalbumi n, urine 2022 024 [email or web address] [facility] (Lab), [address] [place], [address], 5 09:23:35 CBC w/ auto diff 2022 024 [email or web address] Not available 5 09:23:34 hepatic function panel, serum 2022 024 [email or web address] Not available 5 09:23:34 BMP, serum or plasma 2022 024 [email or web address] Not available 5 09:23:35 lipid panel, serum 2022 024 [email or web address] Not available 5 09:23:35 TSH + free T4, serum 2022 024 [email or web address] Not available 5 09:23:34 HbA1c (hemoglobin A1c), blood 2022 023 BETTY Not available 3 03:05:48 PSA, serum or plasma 2022 023 BETTY Not available 3 03:05:52 CBC w/ auto diff 2022 023 BETTY Not available 3 03:05:50 hepatic function panel, serum 2022 023 BETTY Not available 3 03:05:49 BMP, serum or plasma 2022 023 BETTY Not available 3 03:05:47 urinalysis, complete 2022 023 BETTY Not available 3 03:05:51 lipid panel, serum 2022 023 BETTY Not available 3 03:05:46 TSH + free T4, serum 2022 023 BETTY Not available 3 03:05:44 Referral None recorded. Procedures colonoscopy screening (PROC) 2022 023 BETTY Omega godinez MD, [address], [address], [address], 4 10:43:41 Surgeries None recorded. Imaging XR, finger(s), 2 or more view 2022 023 [facility], [address], [place], [address], 3 15:23:26 Medication Orders None recorded. Patient TargetsNo targets recorded. Patient InstructionsNo instructions recorded. Reason for Referral None Reported. Results Created Date Observation Date Name Description Value Unit Range Abnormal Flag Note LastModifiedBy Organization Detail LastModifiedTime 05/26/20 23 05/27/2023 TSH+F REE T4 TSH 2.69 mIU/L 0.40-4 .50 normal Not Available [address], [address], 05/27/2023 03:05:44 05/26/2005/27/2023 TSH+F REE T4 T4, free 0.9 NG/dL 0.8-1. 8 normal Not Available [address], [address], 05/27/2023 03:05:44 05/26/20 23 05/27/2023 LIPID PANEL , STAND IRMA cholesterol, total 130 mg/dL <200 normal Not Available [address], [address], 05/27/2023 03:05:46 05/26/20 23 05/27/2023 LIPID PANEL , STAND IRMA HDL cholesterol 33 mg/dL > or = 40 low Not Available [address], [address], 05/27/2023 03:05:46 05/26/20 23 05/27/2023 LIPID PANEL , STAND IRMA triglyceride s 128 mg/dL <150 normal Not Available [address], [address], 05/27/2023 03:05:46 05/26/20 23 05/27/2023 LIPID PANEL , STAND IRMA LDL-choleste rol 76 mg/dL _(vicente c) normal Refer ence range : <100 Pamela able range <100 mg/dL for prima ry preve ntion ; <70 mg/dL for patie nts with CHD or diabe tic patie nts with > or = 2 CHD risk facto rs. LDL-C is now calcu lated using the Savannah n-Hop kins charan nunez n, which is a valid ated novel cosmoo d nikkie john accur acbea than the Fried osmany equat ion in the estim ation of LDL-C . Savannah curran SS et al. JOSE. 2013; 310(1 9): 2061- 2068 (http ://ed ucati on.Qu estDi agnos [employer]. com/f aq/FA Q164) Not Available [address], [address], 05/27/2023 03:05:46 05/26/20 23 05/27/2023 LIPID PANEL , STAND IRMA chol/HDLC ratio 3.9 (calc ) <5.0 normal Not Available [address], [address], 05/27/2023 03:05:46 05/26/20 23 05/27/2023 LIPID PANEL , STAND IRMA non HDL cholesterol 97 mg/dL _(vicente c) <130 normal For patie nts with diabe denilson plus 1 major ASCVD risk facto r, treat ing to a non-H DL-C goal of <100 mg/dL (LDL- C of <70 mg/dL ) is consi dered a thera pefavio c optio n. Not Available [address], [address], 05/27/2023 03:05:46 05/26/20 23 05/27/2023 BASIC METAB OLIC PANEL glucose 96 mg/dL 65-99 normal Fasti ng refer ence inter ailyn Not Available [address], [address], 05/27/2023 03:05:47 05/26/20 23 05/27/2023 BASIC METAB OLIC PANEL urea nitrogen (BUN) 54 mg/dL 7-25 high Not Available [address], [address], 05/27/2023 03:05:47 05/26/2005/27/2023 BASIC METAB OLIC PANEL creatinine 2.20 mg/dL 0.70-1 .35 high Not Available [address], [address], 05/27/2023 03:05:47 05/26/20 23 05/27/2023 BASIC METAB OLIC PANEL eGFR 32 mL/mi n/1.7 3m2 > or = 60 low Not Available [address], [address], 05/27/2023 03:05:47 05/26/2005/27/2023 BASIC METAB OLIC PANEL BUN/creatini ne ratio 25 (calc ) 6-22 high Not Available [address], [address], 05/27/2023 03:05:47 05/26/2005/27/2023 BASIC METAB OLIC PANEL sodium 141 mmol/ L 135-14 6 normal Not Available [address], [address], 05/27/2023 03:05:47 05/26/2005/27/2023 BASIC METAB OLIC PANEL potassium 5.1 mmol/ L 3.5-5. 3 normal Not Available [address], [address], 05/27/2023 03:05:47 05/26/2005/27/2023 BASIC METAB OLIC PANEL chloride 108 mmol/ L 98-110 normal Not Available [address], [address], 05/27/2023 03:05:47 05/26/2005/27/2023 BASIC METAB OLIC PANEL carbon dioxide 27 mmol/ L 20-32 normal Not Available [address], [address], 05/27/2023 03:05:47 05/26/2005/27/2023 BASIC METAB OLIC PANEL calcium 8.8 mg/dL 8.6-10 .3 normal Not Available [address], [address], 05/27/2023 03:05:47 05/26/2016 0605/27/2023 HEMOG LOBIN A1C hemoglobin A1C 5.8 %_of_ total _HGB <5.7 high For someo ne witho ut known diabe denilson, a hemog lobin A1c value betwe en 5.7% and 6.4% is consi stent with predi abete s and shoul d be confi rmed with a follo w-up test. For someo ne with known diabe denilson, a value <7% indic ates that their diabe denilson is well contr olled . A1c targe ts shoul d be indiv idual ized based on durat ion of diabe denilson, age, comor bid condi tions , and other consi derat ions. This assay resul t is consi stent with an incre ased risk of diabe denilson. Curre ntly, no conse nsus exist s regar ding use of hemog lobin A1c for diagn osis of diabe denilson for child christine. Not Available [address], [address], 05/27/2023 03:05:48 05/26/2005/27/2023 HEPAT IC FUNCT ION PANEL protein, total 6.3 g/dL 6.1-8. 1 normal Not Available [address], [address], 05/27/2023 03:05:49 05/26/20 23 05/27/2023 HEPAT IC FUNCT ION PANEL albumin 4.1 g/dL 3.6-5. 1 normal Not Available [facility] [address] [place], [address], 05/27/2023 03:05:49 05/26/20 23 05/27/2023 HEPAT IC FUNCT ION PANEL globulin 2.2 g/dL_ (calc ) 1.9-3. 7 normal Not Available [facility] [address], [address], 05/27/2023 03:05:49 05/26/20 23 05/27/2023 HEPAT IC FUNCT ION PANEL albumin/glob ulin ratio 1.9 (calc ) 1.0-2. 5 normal Not Available [address], [address], 05/27/2023 03:05:49 05/26/2005/27/2023 HEPAT IC FUNCT ION PANEL bilirubin, total 0.3 mg/dL 0.2-1. 2 normal Not Available [address], [address], 05/27/2023 03:05:49 05/26/2005/27/2023 HEPAT IC FUNCT ION PANEL bilirubin, direct 0.1 mg/dL < or = 0.2 normal Not Available [address] [address] [place], [address], 05/27/2023 03:05:49 05/26/2005/27/2023 HEPAT IC FUNCT ION PANEL bilirubin, indirect 0.2 mg/dL _(vicente c) 0.2-1. 2 normal Not Available [address] [address] [place], [address], 05/27/2023 03:05:49 05/26/2005/27/2023 HEPAT IC FUNCT ION PANEL alkaline phosphatase 94 U/L 35-144 normal Not Available [address] [address] [place], [address], 05/27/2023 03:05:49 05/26/2005/27/2023 HEPAT IC FUNCT ION PANEL AST 18 U/L 10-35 normal Not Available [address] [place], [address], 05/27/2023 03:05:49 05/26/2005/27/2023 HEPAT IC FUNCT ION PANEL ALT 25 U/L 9-46 normal Not Available [address] [address] [place], [address], 05/27/2023 03:05:49 05/26/20 23 05/27/2023 CBC (INCL UDES DIFF/ PLT) white blood cell count 5.5 thous and/u L 3.8-10 .8 normal Not Available [address], [address], 05/27/2023 03:05:50 05/26/20 23 05/27/2023 CBC (INCL UDES DIFF/ PLT) red blood cell count 3.78 betina on/uL 4.20-5 .80 low Not Available [address], [address], 05/27/2023 03:05:50 05/26/20 23 05/27/2023 CBC (INCL UDES DIFF/ PLT) hemoglobin 11.8 g/dL 13.2-1 7.1 low Not Available [address], [address], 05/27/2023 03:05:50 05/26/20 23 05/27/2023 CBC (INCL UDES DIFF/ PLT) hematocrit 35.9 % 38.5-5 0.0 low Not Available [address], [address], 05/27/2023 03:05:50 05/26/20 23 05/27/2023 CBC (INCL UDES DIFF/ PLT) MCV 95.0 fL 80.0-1 00.0 normal Not Available [address], [address], 05/27/2023 03:05:50 05/26/20 23 05/27/2023 CBC (INCL UDES DIFF/ PLT) MCH 31.2 pg 27.0-3 3.0 normal Not Available [facility] [address], [address], 05/27/2023 03:05:50 05/26/20 23 05/27/2023 CBC (INCL UDES DIFF/ PLT) MCHC 32.9 g/dL 32.0-3 6.0 normal Not Available [address], [address], 05/27/2023 03:05:50 05/26/20 23 05/27/2023 CBC (INCL UDES DIFF/ PLT) RDW 12.6 % 11.0-1 5.0 normal Not Available [address], [address], 05/27/2023 03:05:50 05/26/2005/27/2023 CBC (INCL UDES DIFF/ PLT) platelet count 169 thous and/u L 140-40 0 normal Not Available [address], [address], 05/27/2023 03:05:50 05/26/20 23 05/27/2023 CBC (INCL UDES DIFF/ PLT) MPV 11.3 fL 7.5-12 .5 normal Not Available [address], [address], 05/27/2023 03:05:50 05/26/20 23 05/27/2023 CBC (INCL UDES DIFF/ PLT) absolute neutrophils 3284 cells /uL 1500-7 800 normal Not Available [address], [address], 05/27/2023 03:05:50 05/26/20 23 05/27/2023 CBC (INCL UDES DIFF/ PLT) absolute lymphocytes 1276 cells /uL 850-39 00 normal Not Available [address], [address], 05/27/2023 03:05:50 05/26/20 23 05/27/2023 CBC (INCL UDES DIFF/ PLT) absolute monocytes 473 cells /uL 200-95 0 normal Not Available [address], [address], 05/27/2023 03:05:50 05/26/20 23 05/27/2023 CBC (INCL UDES DIFF/ PLT) absolute eosinophils 429 cells /uL 15-500 normal Not Available [address], [address], 05/27/2023 03:05:50 05/26/20 23 05/27/2023 CBC (INCL UDES DIFF/ PLT) absolute basophils 39 cells /uL 0-200 normal Not Available [address], [address], 05/27/2023 03:05:50 05/26/20 23 05/27/2023 CBC (INCL UDES DIFF/ PLT) neutrophils 59.7 % normal Not Available [facility] [address], [address], 05/27/2023 03:05:50 05/26/20 23 05/27/2023 CBC (INCL UDES DIFF/ PLT) lymphocytes 23.2 % normal Not Available [facility] [address], [address], 05/27/2023 03:05:50 05/26/20 23 05/27/2023 CBC (INCL UDES DIFF/ PLT) monocytes 8.6 % normal Not Available [facility] [address], [address], 05/27/2023 03:05:50 05/26/20 23 05/27/2023 CBC (INCL UDES DIFF/ PLT) eosinophils 7.8 % normal Not Available [facility] [address], [address], 05/27/2023 03:05:50 05/26/20 23 05/27/2023 CBC (INCL UDES DIFF/ PLT) basophils 0.7 % normal Not Available [facility] [address], [address], 05/27/2023 03:05:50 05/26/2005/27/2023 URINA LYSIS , COMPL ETE color YELLOW yellow normal Not Available [address], [address], 05/27/2023 03:05:51 05/26/20 23 05/27/2023 URINA LYSIS , COMPL ETE appearance CLEAR clear normal Not Available [address], [address], 05/27/2023 03:05:51 05/26/2005/27/2023 URINA LYSIS , COMPL ETE specific gravity 1.018 1.001- 1.035 normal Not Available [address], [address], 05/27/2023 03:05:51 05/26/20 23 05/27/2023 URINA LYSIS , COMPL ETE pH 6.0 5.0-8. 0 normal Not Available [address], [address], 05/27/2023 03:05:51 05/26/2005/27/2023 URINA LYSIS , COMPL ETE glucose 2+ negati ve abnormal Not Available [address], [address], 05/27/2023 03:05:51 05/26/20 23 05/27/2023 URINA LYSIS , COMPL ETE bilirubin NEGATI VE negati ve normal Not Available [address], [address], 05/27/2023 03:05:51 05/26/20 23 05/27/2023 URINA LYSIS , COMPL ETE ketones NEGATI VE negati ve normal Not Available [address], [address], 05/27/2023 03:05:51 05/26/20 05/27/2023 URINA LYSIS , COMPL ETE occult blood NEGATI VE negati ve normal Not Available [address], [address], 05/27/2023 03:05:51 05/26/2005/27/2023 URINA LYSIS , COMPL ETE protein NEGATI VE negati ve normal Not Available [address], [address], 05/27/2023 03:05:51 05/26/20 23 05/27/2023 URINA LYSIS , COMPL ETE nitrite NEGATI VE negati ve normal Not Available [address], [address], 05/27/2023 03:05:51 05/26/2005/27/2023 URINA LYSIS , COMPL ETE leukocyte esterase NEGATI VE negati ve normal Not Available [address], [address], 05/27/2023 03:05:51 05/26/2005/27/2023 URINA LYSIS , COMPL ETE WBC NONE SEEN /hpf < or = 5 normal Not Available [address], [address], 05/27/2023 03:05:51 05/26/20 23 05/27/2023 URINA LYSIS , COMPL ETE RBC NONE SEEN /hpf < or = 2 normal Not Available [address], [address], 05/27/2023 03:05:51 05/26/2005/27/2023 URINA LYSIS , COMPL ETE squamous epithelial cells NONE SEEN /hpf < or = 5 normal Not Available [address], [address], 05/27/2023 03:05:51 05/26/2005/27/2023 URINA LYSIS , COMPL ETE bacteria NONE SEEN /hpf none seen normal Not Available [facility] [address] [address] [place], [address], 05/27/2023 03:05:51 05/26/20 23 05/27/2023 URINA LYSIS , COMPL ETE hyaline cast NONE SEEN /lpf none seen normal Not Available [facility] [address] [address] [place], [address], 05/27/2023 03:05:51 05/26/20 23 05/27/2023 URINA LYSIS , COMPL ETE note This urine was lincoln zed for the prese nce of WBC, RBC, bacte melita, casts , and other forme d eleme nts. Only those eleme nts seen were repor gab. Not Available [facility] [address] [address] [place], [address], 05/27/2023 03:05:51 05/26/2005/27/2023 PSA, TOTAL PSA, total 0.48 NG/mL < or = 4.00 normal The total PSA value from this assay syste m is stand ardiz ed again st the WHO stand irma. The test resul t will be appro ximat es 20% lower when reji red to the equim olar- stand ardiz ed total PSA (Murphy man Coult er). Reji rison of seria l PSA resul ts shoul d be inter prete d with this fact in mind. This test was perfo rmed using the Sieme ns chemi lumin escen t metho d. Value s obtai niraj from diffe rent assay metho ds canno t be used inter flores eably . PSA level s, regar dless of value , shoul d not be inter prete d as absol mari evide nce of the prese nce or absen ce of disea se. Not Available [facility] [address] [address] [place], [address], 05/27/2023 03:05:52 12/04/06/28/2023 URIC ACID uric acid 8.5 mg/dL 4.0-8. 0 high Thera peuti c targe t for gout patie nts: <6.0 mg/dL Not Available [address] [address] [address] , [place], [address], 06/28/2023 10:53:52 06/27/20 23 06/28/2023 URIC ACID copy(ies) sent to: [facility] [address] [place] [address] Not Available [address] [address] [place], [address], 06/28/2023 10:53:52 06/27/20 23 06/28/2023 RHEUM ATOID FACTO R rheumatoid factor <14 IU/mL <14 normal Not Available [address] [address] [place], [address], 06/28/2023 10:53:54 06/27/20 23 06/28/2023 RHEUM ATOID FACTO R copy(ies) sent to: [facility] [address] [place] [address] Not Available [address] [address] [place], [address], 06/28/2023 10:53:54 06/27/20 23 06/28/2023 C-CHAU CTIVE PROTE IN C-reactive protein 2.9 mg/L <8.0 normal Not Available [address] [address] [place], [address], 06/28/2023 10:53:55 06/27/20 23 06/28/2023 C-CHAU CTIVE PROTE IN copy(ies) sent to: [facility] [address] [place] [address] Not Available [facility] [address] [address] [place], [address], 06/28/2023 10:53:55 11/17/19 24 11/18/2023 ALBUM IN, RANDO M URINE W/CRE ATINI NE creatinine, random urine 88 mg/dL 20-320 normal Not Available [address] [address] [place], [address], 11/18/2023 14:29:30 11/17/19 24 11/18/2023 ALBUM IN, RANDO M URINE W/CRE ATINI NE albumin, urine 5.2 mg/dL see note: normal Refer ence Range : Refer ence Range Not estab lishe d Not Available [address], [address], 11/18/2023 14:29:30 11/17/19 24 11/18/2023 ALBUM IN, RANDO M URINE W/CRE ATINI NE albumin/crea tinine ratio, random urine 59 mg/g_ creat <30 high The ADA defin es abnor malit ies in album in excre tion as follo ws: Album inuri a Categ ory Resul t (mg/g creat inine ) Chen l to Mildl y incre ased <30 Moder ately incre ased 30-29 9 Sever es incre ased > OR = 300 The ADA recom mends that at least two of three speci mens colle cted withi n a 3-6 month perio d be abnor mal befor e consi annette g a patie nt to be withi n a diagn ostic categ ory. Not Available [address], [address], 11/18/2023 14:29:30 11/17/19 24 11/18/2023 TSH+F REE T4 TSH 1.52 mIU/L 0.40-4 .50 normal Not Available [address], [address], 11/18/2023 14:29:30 11/17/19 24 11/18/2023 TSH+F REE T4 T4, free 1.1 NG/dL 0.8-1. 8 normal Not Available [facility] [address] [place], [address], 11/18/2023 14:29:30 11/17/19 24 11/18/2023 LIPID PANEL , STAND IRAM cholesterol, total 126 mg/dL <200 normal Not Available [facility] [address] [place], [address], 11/18/2023 14:29:31 11/17/19 24 11/18/2023 LIPID PANEL , STAND IRMA HDL cholesterol 36 mg/dL > or = 40 low Not Available [facility] [address] [address] [place], [address], 11/18/2023 14:29:31 11/17/19 24 11/18/2023 LIPID PANEL , STAND IRMA triglyceride s 128 mg/dL <150 normal Not Available [address] [address] [place], [address], 11/18/2023 14:29:31 11/17/19 24 11/18/2023 LIPID PANEL , STAND IRMA LDL-choleste rol 69 mg/dL _(vicente c) normal Refer ence range [...] valid ated novel metho d provi marisa mitchell r accur acy than the Fried osmany equat ion in the estim ation of LDL-C . Savannah curran SS et al. JOSE. 2013; 310(1 9): 2061- 2068 (http ://ed ucati on.Qu estDi renuka tics. com/f aq/FA Q164) Not Available [facility] [address] [place], [address], 11/18/2023 14:29:31 11/17/19 24 11/18/2023 LIPID PANEL , STAND IRMA chol/HDLC ratio 3.5 (calc ) <5.0 normal Not Available [address], [address], 11/18/2023 14:29:31 11/17/19 24 11/18/2023 LIPID PANEL , STAND IRMA non HDL cholesterol 90 mg/dL _(vicente c) <130 normal For patie nts with diabe denilson plus 1 major ASCVD risk facto r, treat ing to a non-H DL-C goal of <100 mg/dL (LDL- C of <70 mg/dL ) is consi dered a thera peuti c optio n. Not Available [facility] [address], [address], 11/18/2023 14:29:31 11/17/19 24 11/18/2023 BASIC METAB OLIC PANEL glucose 106 mg/dL 65-99 high Fasti ng refer ence inter ailyn For someo ne witho ut known diabe denilson, a gluco se value betwe en 100 and 125 mg/dL is consi stent with predi abete s and shoul d be confi rmed with a follo w-up test. Not Available [address], [address], 11/18/2023 14:29:31 11/17/19 24 11/18/2023 BASIC METAB OLIC PANEL urea nitrogen (BUN) 47 mg/dL 7-25 high Not Available [facility] [address] [address] [place], [address], 11/18/2023 14:29:31 11/17/19 24 11/18/2023 BASIC METAB OLIC PANEL creatinine 1.96 mg/dL 0.70-1 .35 high Not Available [facility] [address] [address] [place], [address], 11/18/2023 14:29:31 11/17/19 24 11/18/2023 BASIC METAB OLIC PANEL eGFR 37 mL/mi n/1.7 3m2 > or = 60 low Not Available [address], [address], 11/18/2023 14:29:31 11/17/19 24 11/18/2023 BASIC METAB OLIC PANEL BUN/creatini ne ratio 24 (calc ) 6-22 high Not Available [address], [address], 11/18/2023 14:29:31 11/17/19 24 11/18/2023 BASIC METAB OLIC PANEL sodium 140 mmol/ L 135-14 6 normal Not Available [address], [address], 11/18/2023 14:29:31 11/17/19 24 11/18/2023 BASIC METAB OLIC PANEL potassium 4.6 mmol/ L 3.5-5. 3 normal Not Available [address], [address], 11/18/2023 14:29:31 11/17/19 24 11/18/2023 BASIC METAB OLIC PANEL chloride 104 mmol/ L 98-110 normal Not Available [address], [address], 11/18/2023 14:29:31 11/17/19 24 11/18/2023 BASIC METAB OLIC PANEL carbon dioxide 27 mmol/ L 20-32 normal Not Available [address], [address], 11/18/2023 14:29:31 11/17/19 24 11/18/2023 BASIC METAB OLIC PANEL calcium 8.9 mg/dL 8.6-10 .3 normal Not Available [address], [address], 11/18/2023 14:29:31 11/17/19 11/18/2023 HEMOG LOBIN A1C hemoglobin A1C 6.6 %_of_ total _HGB <5.7 high For someo [...] Curre ntly, no conse nsus exist s regar ding use of hemog lobin A1c for diagn osis of diabe denilson for child christine. This test was perfo rmed on the [facility] c503 platf orm. Effec tive , a flores e in test platf orms from the [facility] [employer] t[employer] to the [facility] mariela c503 may have shift ed HbA1c resul ts reji red to histo rical resul ts. Based on labor atory valid ation testi ng condu cted at [facility] , the [facility] platf orm relat jack to the [employer] t platf orm had an avera ge incre ase in HbA1c value of < or = 0.3%. This diffe rence is withi n accep gab varia bilit y estab lishe d by the Felisa ortiz [employer] hemog lobin Stand ardiz ation Progr am. Note that not all indiv idual s will have had a shift in their resul ts and direc t reji rison s betwe en histo rical and curre nt resul ts for testi ng condu cted on diffe rent platf orms is not recom edward d. Not Available [facility] [address] [address], [place], [address], 11/18/2023 14:29:31 11/17/19 24 11/18/2023 HEPAT IC FUNCT ION PANEL protein, total 6.8 g/dL 6.1-8. 1 normal Not Available [address], [address], 11/18/2023 14:29:32 11/17/19 24 11/18/2023 HEPAT IC FUNCT ION PANEL albumin 4.4 g/dL 3.6-5. 1 normal Not Available [address], [address], 11/18/2023 14:29:32 11/17/19 24 11/18/2023 HEPAT IC FUNCT ION PANEL globulin 2.4 g/dL_ (calc ) 1.9-3. 7 normal Not Available [address], [address], 11/18/2023 14:29:32 11/17/19 24 11/18/2023 HEPAT IC FUNCT ION PANEL albumin/glob ulin ratio 1.8 (calc ) 1.0-2. 5 normal Not Available [address], [address], 11/18/2023 14:29:32 11/17/19 24 11/18/2023 HEPAT IC FUNCT ION PANEL bilirubin, total 0.3 mg/dL 0.2-1. 2 normal Not Available [address], [address], 11/18/2023 14:29:32 11/17/19 24 11/18/2023 HEPAT IC FUNCT ION PANEL bilirubin, direct 0.1 mg/dL < or = 0.2 normal Not Available [address], [address], 11/18/2023 14:29:32 11/17/19 24 11/18/2023 HEPAT IC FUNCT ION PANEL bilirubin, indirect 0.2 mg/dL _(vicente c) 0.2-1. 2 normal Not Available [address], [address], 11/18/2023 14:29:32 11/17/19 24 11/18/2023 HEPAT IC FUNCT ION PANEL alkaline phosphatase 106 U/L 35-144 normal Not Available [facility] [employer] [address], [address], 11/18/2023 14:29:32 11/17/19 24 11/18/2023 HEPAT IC FUNCT ION PANEL AST 22 U/L 10-35 normal Not Available [address], [address], 11/18/2023 14:29:32 11/17/19 24 11/18/2023 HEPAT IC FUNCT ION PANEL ALT 31 U/L 9-46 normal Not Available [address], [address], 11/18/2023 14:29:32 11/17/19 24 11/18/2023 CBC (INCL UDES DIFF/ PLT) white blood cell count 7.0 thous and/u L 3.8-10 .8 normal Not Available [address], [address], 11/18/2023 14:29:32 11/17/19 24 11/18/2023 CBC (INCL UDES DIFF/ PLT) red blood cell count 4.05 betina on/uL 4.20-5 .80 low Not Available [address], [address], 11/18/2023 14:29:32 11/17/19 24 11/18/2023 CBC (INCL UDES DIFF/ PLT) hemoglobin 13.1 g/dL 13.2-1 7.1 low Not Available [employer] [address], [address], 11/18/2023 14:29:32 11/17/19 24 11/18/2023 CBC (INCL UDES DIFF/ PLT) hematocrit 39.4 % 38.5-5 0.0 normal Not Available [address], [address], 11/18/2023 14:29:32 11/17/19 24 11/18/2023 CBC (INCL UDES DIFF/ PLT) MCV 97.3 fL 80.0-1 00.0 normal Not Available [address], [address], 11/18/2023 14:29:32 11/17/19 24 11/18/2023 CBC (INCL UDES DIFF/ PLT) MCH 32.3 pg 27.0-3 3.0 normal Not Available [address], [address], 11/18/2023 14:29:32 11/17/19 24 11/18/2023 CBC (INCL UDES DIFF/ PLT) MCHC 33.2 g/dL 32.0-3 6.0 normal Not Available [address], [address], 11/18/2023 14:29:32 11/17/19 24 11/18/2023 CBC (INCL UDES DIFF/ PLT) RDW 12.4 % 11.0-1 5.0 normal Not Available [address], [address], 11/18/2023 14:29:32 11/17/19 24 11/18/2023 CBC (INCL UDES DIFF/ PLT) platelet count 158 thous and/u L 140-40 0 normal Not Available [address] [address], [address], 11/18/2023 14:29:32 11/17/19 24 11/18/2023 CBC (INCL UDES DIFF/ PLT) MPV 11.1 fL 7.5-12 .5 normal Not Available [address], [address], 11/18/2023 14:29:32 11/17/19 24 11/18/2023 CBC (INCL UDES DIFF/ PLT) absolute neutrophils 4949 cells /uL 1500-7 800 normal Not Available [address], [address], 11/18/2023 14:29:32 11/17/19 24 11/18/2023 CBC (INCL UDES DIFF/ PLT) absolute lymphocytes 1085 cells /uL 850-39 00 normal Not Available [address], [address], 11/18/2023 14:29:32 11/17/19 24 11/18/2023 CBC (INCL UDES DIFF/ PLT) absolute monocytes 581 cells /uL 200-95 0 normal Not Available [address], [address], 11/18/2023 14:29:32 11/17/19 24 11/18/2023 CBC (INCL UDES DIFF/ PLT) absolute eosinophils 322 cells /uL 15-500 normal Not Available [address], [address], 11/18/2023 14:29:32 11/17/19 24 11/18/2023 CBC (INCL UDES DIFF/ PLT) absolute basophils 63 cells /uL 0-200 normal Not Available [address], [address], 11/18/2023 14:29:32 11/17/19 24 11/18/2023 CBC (INCL UDES DIFF/ PLT) neutrophils 70.7 % normal Not Available [address], [address], 11/18/2023 14:29:32 11/17/19 24 11/18/2023 CBC (INCL UDES DIFF/ PLT) lymphocytes 15.5 % normal Not Available [facility] [address] [place], [address], 11/18/2023 14:29:32 11/17/19 24 11/18/2023 CBC (INCL UDES DIFF/ PLT) monocytes 8.3 % normal Not Available [facility] [address] [address] [place], [address], 11/18/2023 14:29:32 11/17/19 24 11/18/2023 CBC (INCL UDES DIFF/ PLT) eosinophils 4.6 % normal Not Available [facility] [address] [address] [place], [address], 11/18/2023 14:29:32 11/17/19 24 11/18/2023 CBC (INCL UDES DIFF/ PLT) basophils 0.9 % normal Not Available [facility] [address], [address], 11/18/2023 14:29:32 02/24/20 23 09/12/2009 colon oscop y scree krysta (PROC ) No observ ation record ed. BARCODE Not Available 2022 10:27:37 05/27/20 23 05/27/2023 XR, finge r(s), 2 or more view No observ ation record ed. [email or web address] [facility] [address], [place], [address], 06/22/2023 14:33:57 Result Notes None recorded. 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, [employer] 3 12:09:14 Hypothyroidism 87059896 Active 2022 BETO Templeton, [employer] [facility] 3 12:09:40 Hyperlipidemia 38946205 Active 2022 BETO Templeton, [employer] [facility] 3 12:09:54 Benign essential hypertension 7298240 Active 2022 ROSEANNE Kramer [address], [address], [place], [address], [employer] [facility] [employer] 3 11:38:26 Well controlled type 2 diabetes mellitus 766813916 Active 2022 ROSEANNE Kramer [address], [address], [place], [address], [employer] [facility] 3 11:55:07 Essential tremor 768585331 Active 2022 ROSEANNE Kramer [address], [address], [place], [address], [employer] [facility] [employer] 3 11:55:12 Chronic kidney disease 627182294 Active 2022 ROSEANNE Kramer [address], [address], [place], [address], [employer] [facility] [employer] 3 11:55:24 Asthma 931117084 Active 2022 ROSEANNE Kramer [address], [address], [place], [address], [employer] [facility] [employer] 3 11:56:36 Swelling of finger joint 665393903 Active 2022 ROSEANNE Kramer [address], [address], [place], [address], [employer] [facility] [employer] 3 09:25:46 Upper respiratory infection 16665783 Active 2022 ROSEANNE Kramer [address], [address], [place], [address], [employer] [facility] [employer] 3 13:53:14 Pain of multiple joints 29591748 Active 2022 ROSEANNE Kramer [address], [address], [place], [address], [employer] [facility] 3 14:32:49 Gout 98806132 Active 2022 ROSEANNE Kramer [address], [address], [place], [address], [facility] 17:32:42 Problem Notes None recorded. Procedures Surgical History Date Name Laterality Status Provider Name and Address Organization Details Recorded Time 9 Colonoscopy completed BETO Templeton [facility] 11/15/2022 17:06:19 replacement of aortic valve completed BETO Templeton [facility] 11/15/2022 17:03:26 ventricular shunt to head or neck structure completed BETO Templeton [facility] 11/15/2022 17:03:43 Carpal tunnel surgery completed BETO Templeton [facility] 11/15/2022 17:04:00 hernia repair completed BETO Templeton [facility] 11/15/2022 17:04:07 Imaging Results None recorded. Procedure Notes None recorded. Medical Equipment None Reported. Allergies Allergen ID Allergen Name Allergen Category Reaction Reaction Severity Criticality Documentation Date Start Date Code Code System Note Provider Name and Address Organization Details Recorded Time 04525 aspirin medicatio n anaphylax is Not available Not available 11/15/2022 1191 RxNorm BETO Templeton [facility] 11:27:22 Medications Name Sig Start Date Stop Date Status Note LastModified by Organization Details LastModified Time amoxicillin 500 mg capsule TAKE FOUR CAPSULES BY MOUTH ONE HOUR BEFORE APPOINTME NT 11/12 completed Not Available Not Available Not Available furosemide 40 mg tablet TAKE 1 TABLET BY MOUTH ONCE DAILY active Not Available Not Available No t Available latanoprost 0.005 % eye drops INSTILL 1 DROP INTO EACH EYE AT BEDTIME active Not Available Not Available No t Available primidone 50 mg tablet TAKE 3 TABLETS BY MOUTH IN THE MORNING AND 2 IN THE EVENING active Not Available Not Available No t Available carvedilol 6.25 mg tablet TAKE 1 TABLET BY MOUTH TWICE DAILY active Not Available Not Available No t Available azithromyci n 250 mg tablet TAKE 2 TABLETS BY MOUTH ON DAY 1, AND THEN TAKE 1 TABLET BY MOUTH ONCE A DAY ON DAY 2 THROUGH DAY 5 07/05 completed Not Available Not Available Not Available prednisone 20 mg tablet TAKE 2 TABLETS BY MOUTH ONCE DAILY FOR 5 DAYS active Not Available Not Available No t Available isosorbide mononitrate ER 30 mg tablet,exte nded release 24 hr TAKE 3 TABLETS BY MOUTH IN THE MORNING AND 2 IN THE EVENING . DO NOT EXCEED 5 PER 24 HOURS active Not Available Not Available No t Available topiramate 25 mg tablet TAKE 2 TABLETS BY MOUTH EVERY 12 HOURS 03/07 completed Not Available Not Available Not Available clopidogrel 75 mg tablet TAKE 1 TABLET BY MOUTH ONCE DAILY active Not Available Not Available No t Available sulfamethox azole 800 mg-trimetho prim 160 mg tablet TAKE 1 TABLET BY MOUTH TWICE DAILY FOR 7 DAYS 11/12 completed Not Available Not Available Not Available benzonatate 100 mg capsule TAKE 1 CAPSULE BY MOUTH EVERY 8 HOURS NEEDED 11/12 completed Not Available Not Available Not Available levothyroxi ne 50 mcg tablet TAKE 1 TABLET BY MOUTH ONCE DAILY active Not Available Not Available No t Available valsartan 320 mg tablet TAKE 1 TABLET BY MOUTH ONCE DAILY active Not Available Not Available No t Available codeine 10 mg-guaifene sin 100 mg/5 mL oral liquid TAKE 10ML BY MOUTH EVERY 4 TO 6 HOURS NEEDED 07/05 completed Not Available Not Available Not Available allopurinol 300 mg tablet Take 1 tablet every day by oral route. active Not Available Not Available No t Available amoxicillin 875 mg-potassiu m clavulanate 125 mg tablet TAKE 1 TABLET BY MOUTH EVERY 12 HOURS FOR 7 DAYS 11/12 completed Not Available Not Available Not Available iron 65 mg tablet Take by oral route. active Not Available Not Available No t Available Anti-Diarrh eal (loperamide ) 2 mg capsule Take by oral route. active Not Available Not Available No t Available rosuvastati n 20 mg tablet TAKE 1 TABLET BY MOUTH ONCE DAILY active Not Available Not Available No t Available topiramate 50 mg tablet TAKE 1 TABLET BY MOUTH TWICE DAILY active Not Available Not Available No t Available Vitamin D3 active Not Available Not Av ailable Not Available One A Day Vitamin active Not Available Not Available Not Available Accu-Chek Neli Plus test strips USE 1 STRIP TO CHECK GLUCOSE THREE TIMES DAILY active Not Available Not Available No t Available Breo Ellipta 100 mcg-25 mcg/dose powder for inhalation INHALE 1 PUFF BY MOUTH ONCE DAILY active Not Available Not Available No t Available Jardiance 25 mg tablet TAKE 1 TABLET BY MOUTH ONCE DAILY active Not Available Not Available No t Available insulin degludec (U-100) 100 unit/mL (3 mL) subcutaneou s pen INJECT 22 UNITS SUBCUTANE OUSLY ONCE DAILY active Not Available Not Available No t Available Vitals Date Recorded Body temperature Body weight Body mass index (BMI) Body height Respiratory rate Heart rate Oxygen saturation Systolic And Diastolic Provider Name and Address Organization Details Last Updated DateTime 3 97.3 [degF] 71389.5 1 g 28 kg/m2 177.8 cm 16 /min 70 /min 99 % 128/78 mm[Hg] BETO Templeton [facility] 3 11:30:37 Date Recorded Body height Body weight Body temperature Heart rate Oxygen saturation Systolic And Diastolic Provider Name and Address Organization Details Last Updated DateTime 3 177.8 cm 39430.9 2 g 97.4 [degF] 77 /min 99 % 124/84 mm[Hg] Joanna Xiao RN [facility] [employer] 3 09:05:13 Social History Question Answer Notes LastModified by Organizat ion Details LastModified Time Tobacco Smoking Status Never Smoker BETO Templeton null, [facility] [employer] [facility] 11/15/2022 11:28:51 Do You Have An Advance Directive? No Information not available 11/15/2022 Are You Blind Or Do You Have Difficulty Seeing? No [email or web address] Information not available 11/15/2022 What Is Your Level Of Caffeine Consumption? Occasional [email or web address] Information not available 11/15/2022 In The 14 Days Before Symptom Onset, Have You Had Close Contact With A Laboratory-confir med COVID-19 While That Case Was Ill? No [email or web address] Information not available 11/12/2022 In The 14 Days Before Symptom Onset, Have You Had Close Contact With A Person Who Is Under Investigation For COVID-19 While That Person Was Ill? No [email or web address] Information not available 11/12/2022 What Type Of Diet Are You Following? REGULAR [email or web address] Information not available 11/15/2022 Have There Been Any Changes To Your Family Or Social Situation? No Information no t available 11/15/2022 Are There Any Guns Present In Your Home? No [email or web address] Information not available 11/15/2022 Do You Use Insect Repellent Routinely? No [email or web address] Information not available 11/15/2022 Do You Have A Medical Power Of Nursery Manager? Yes , Fiorella Information not available 11/15/2022 What Is Your Relationship Status? [email or web address] Information not available 11/12/2022 Do You Use Your Seat Belt Or Car Seat Routinely? Yes [email or web address] Information not available 11/15/2022 Do You Have Smoke And Carbon Monoxide Detectors In Your Home? Yes [email or web address] Information not available 11/15/2022 Do You Use Sunscreen Routinely? Yes Information not available 11/15/2022 Have You Recently Traveled Abroad? No [email or web address] Information not available 11/12/2022 Do You Have Any Dietary Restrictions? No [email or web address] Information not available 11/15/2022 Sex: Unknown Functional Status Question Answer Note LastModified by Organizat ion Details LastModified Time Do you use any illicit or recreational drugs? No [email or web address] Information not available 11/15/2022 What is your level of alcohol consumption? None [email or web address] Information not available 11/15/2022 Are you currently employed? No [email or web address] Information not available 11/15/2022 Do you have transportation difficulties? No [email or web address] Information not available 11/15/2022 Do you have difficulty doing errands alone? No [email or web address] Information not available 11/15/2022 Are you able to care for yourself independently? Yes [email or web address] Information not available 11/15/2022 Do you have difficulty dressing, bathing, grooming, or toileting? No [email or web address] Information not available 11/15/2022 What is your exercise level? Occasional Information not available 11/15/2022 Mental Status None recorded. Family History Relationship Description Onset Age of this Age Resolved Age Notes LastModified by Organization Details LastModified Time Mother Malignant neoplasm of lung 68 [email or web address] Not available 11/15 17:05:13 Father Carcinoma of prostate 83 [email or web address] Not available 11/15 17:05:19 Father Chronic obstructive pulmonary disease [email or web address] Not available 11/15 17:05:01 Unspecified Relation Diabetes mellitus [email or web address] Not available 11/15 17:05:24 Unspecified Relation Myocardial infarction [email or web address] Not available 10/24 17:05:32 Medical History Condition Response DIABETES, TYPE Y USE OF BLOOD THINNERS Y HEART ARRHYTHMIA HIGH CHOLESTEROL / HYPERLIPIDEMIA Y Immunizations Vaccine Type Date Status Note Provider Nam e and Address Organization Details Recorded Time influenza, unspecified formulation 07/01/2022 completed BETO Templeton, [email or web address] 11/15/2022 17:05:54 zoster, unspecified formulation 07/01/2022 completed BETO Templeton, [email or web address] 11/15/2022 17:06:03 COVID-19, mRNA, LNP-S, PF, 30 mcg/0.3 mL dose 07/08/2021 completed BETO Templeton, [email or web address] 02/22/2023 15:21:43 Past Encounters Encounter ID Performer Location Encounter Start Date Encounter Closed Date Diagnosis/Indication Diagnosis SNOMED-CT Code Diagnosis ICD10 Code Diagnosis IMO Codes Diagnosis Note [id number] ROSEANNE Kramer [facility] [place] [address] [place] [address] 11/15/2022 11:09:10 11/15/2022 12:40:04 Benign essential hypertension 8134584 I10 stable on valsartan 320mg daily, isosorbide mononitrat e ER 30mg daily, furosemide 40mg daily and coreg 6.25mg bid. Hyperlipidemia 97569980 E78.5 on rosuvastat in 20mg daily. due for fasting lipids Hypothyroidism 26593153 E03.9 on levothyrox ine 50mcg due for labs Long-term drug therapy 561422564 Z79.899 Family his tory of malignant neoplasm of prostate 541279019 Z80.42 Well contr olled type 2 diabetes mellitus 620655910 E11.9 hx of great control. due for updated a1c lab; on jardiance 25mg daily and Tresiba 22 units daily. Essential tremor 6197724 09 G25.0 on topamax and primidone. stable Chronic ki dney disease 981743846 N18.9 stable. History of aortic valve replacement 8028452770 100 Z95.4 stable. has cardiology for routine f/u Asthma 760581271 J45.90 9 stable on breo ellipta 100/25 [id number] ROSEANNE Kramer [facility] [place] [address] [place] [address] 05/27/2023 09:00:39 05/27/2023 09:33:01 Well controlled type 2 diabetes mellitus 432118601 E11.9 hx of great control. due for updated a1c lab; on jardiance 25mg daily and Tresiba 22 units daily. Benign ess ential hypertension 2412946 I10 stable on valsartan 320mg daily, isosorbide mononitrat e ER 30mg daily, furosemide 40mg daily and coreg 6.25mg bid. Hyperlipidemia 05732331 E78.5 on rosuvastat in 20mg daily. due for fasting lipids Asthma 073469155 J45.90 9 stable on breo ellipta 100/25 Hypothyroidism 97928725 E03.9 on levothyrox ine 50mcg due for labs Essential tremor 7688623 09 G25.0 on topamax and primidone. stable History of aortic valve replacement 4702126029 100 Z95.4 stable. has cardiology for routine f/u Chronic ki dney disease 049324495 N18.9 Cr up to 2.2 Long-term drug therapy 227104739 Z79.899 next labs are due in november. Family his tory of malignant neoplasm of prostate 856008553 Z80.42 psa UTD 0.48 Screening for malignant neoplasm of colon 743435382 Z12.11 screening colonoscop y ordered for f/u scope due date Swelling o f finger joint 981284636 M79.89 check xray left ring finger, tender, swelling, no injury Health Concerns Section Related Observation LastModified by Organization Detai ls LastModified Time None Recorded Concern Status LastModified by Organization Details LastModified Time None Recorded Advance Directives Directive N: Payers Insurance Date Sequence Insurance Name Policy Number Policy Parry Covered Member ID Parry Member ID Guarantor Name 06/13/2023 1 [employer] (MEDICARE REPLACEMENT/ ADVANTAGE - PPO) [id number] Mikael Rob [id number] Mikael Rob Notes Date Note Type Note Provider Name and Address Organization Details Recorded Time 3 text/html HyperlipidemiaReported by PatientHPIFor duration, patient reportschronic. For compliance, patient reportsdoes not exercisebut reportscompliant,compliant with diet, andexercises. For risk factors, patient reportshypertension. For control, patient reportsusually well controlled. For current therapy, patient reportscurrently taking: (rosuvastatin 20mg). For complications, patient reportsno coronary artery disease,no peripheral artery disease, andno cardiovascular disease. HypertensionReported by PatientHPIFor duration, patient reportshas noted for years. For onset/timing, patient reportsbetter. For alleviating factors, patient reportsmedication. For associated symptoms, patient reportsno shortness of breath,no fatigue,no palpitations,no decline in exercise capacity, andno snoring. HypothyroidismReported by PatientHPIFor context/risk, patient reportshistory of hypothyroidismbut reportsnormal thyroid levels,no history of head or neck radiation during childhood,no history of thyroid disease,no history of hypothyroidism,no history of hyperthyroidism, andno excess iron exposure. For quality, patient reportsnot changing. For duration, patient reportsconstant. For onset/timing, patient reportsstill present. For modifying factors, patient reportsmedication. For exercise, patient reportsgets exercise. For associated symptoms, patient reportsno cold intolerance,no heat intolerance,no weight loss,no weight gain,no double vision,no dry eyes,no hoarseness,no difficulty swallowing,no neck masses,no deepening of the voice,no fast heart rate,no increased blood pressure,no palpitations,no chest pain,no chest tightess or pressure,no constipation,no diarrhea,no vomiting,no decreased appetite,no loose stools,no irregular menstrual periods,no excessive sweating,no joint pain,no numbness,no tingling of the hands or feet,no dry skin,no tremor,no nervousness,no anxiety,no depression,no fatigue,no sleep difficulties,no skin changes, andno hair changes. hx of AV replacement. ROSEANNE Kramer [address], [place], [address], [place] [facility] [place] [employer] [facility] 11/18/2022 13:59:09 3 text/html HyperlipidemiaReported by PatientHPIFor duration, patient reportschronic. For compliance, patient reportsdoes not exercisebut reportscompliant,compliant with diet, andexercises. For risk factors, patient reportshypertension. For control, patient reportsusually well controlled. For current therapy, patient reportscurrently taking: (rosuvastatin 20mg). For complications, patient reportsno coronary artery disease,no peripheral artery disease, andno cardiovascular disease. HypertensionReported by PatientHPIFor duration, patient reportshas noted for years. For onset/timing, patient reportsbetter. For alleviating factors, patient reportsmedication. For associated symptoms, patient reportsno shortness of breath,no fatigue,no palpitations,no decline in exercise capacity, andno snoring. HypothyroidismReported by PatientHPIFor context/risk, patient reportshistory of hypothyroidismbut reportsnormal thyroid levels,no history of head or neck radiation during childhood,no history of thyroid disease,no history of hypothyroidism,no history of hyperthyroidism, andno excess iron exposure. For quality, patient reportsnot changing. For duration, patient reportsconstant. For onset/timing, patient reportsstill present. For modifying factors, patient reportsmedication. For exercise, patient reportsgets exercise. For associated symptoms, patient reportsno cold intolerance,no heat intolerance,no weight loss,no weight gain,no double vision,no dry eyes,no hoarseness,no difficulty swallowing,no neck masses,no deepening of the voice,no fast heart rate,no increased blood pressure,no palpitations,no chest pain,no chest tightess or pressure,no constipation,no diarrhea,no vomiting,no decreased appetite,no loose stools,no irregular menstrual periods,no excessive sweating,no joint pain,no numbness,no tingling of the hands or feet,no dry skin,no tremor,no nervousness,no anxiety,no depression,no fatigue,no sleep difficulties,no skin changes, andno hair changes. hx of AV replacement. ROSEANNE Kramer [address], [place], [address], [place] [facility] 06/12/2023 17:24:02
--- OUTSIDE RECORDS SUMMARY | 2025-07-19 00:27 | XMS_ITS | Continuity of Care Document ---
Author Organization [place] [facility] [place] Address [address] [place] [address] Care Team Providers Care Naval Architect Name Role Phone ROBERTO HULL Primary Care [...] Lab BMP, serum or plasma 2024 026 [facility], [address], [place], [address], 06/07/2025 08:50:03 hepatic function panel, serum 2024 026 [facility], [address], [place], [address], 06/07/2025 08:50:03 CBC w/ auto diff 2024 026 [facility], [address], [place], [address], 06/07/2025 08:50:03 lipid panel, serum 2024 026 [facility], [address], [place], [address], 06/07/2025 08:50:03 microalbu min/creat inine, mass ratio, urine 2024 026 [facility], [address], [place], [address], 06/07/2025 08:50:03 PSA, serum or plasma 2024 026 [facility], [address], [place], [address], 06/07/2025 08:50:03 HbA1c (hemoglob in A1c), blood 2024 026 [facility], [address], [place], [address], 06/07/2025 08:50:02 TSH + free T4, serum 2024 026 [facility], [address], [place], [address], 06/07/2025 08:50:03 Referral None recorded. Procedures None recorded. Surgeries None recorded. Imaging None recorded. Medication Orders None recorded. Patient TargetsNo targets recorded. Patient Instructions Encounter Date Encounter Id Patient Instructions Last Modified By Organization Details Last Modified Time 06/07/2025 [id number] A healthy lifestyle: care instructions Not available 06/07/2025 08:50:03 Reason for Referral None Reported. Results Created Date Observation Date Name Description Value Unit Range Abnormal Flag Note LastModifiedBy Organization Detail LastModifiedTime 05/29/2005/29/2025 LIPID PANEL , STAND YOBANI cholesterol, total 121 mg/dL <200 normal Not Available [place] [address] [place], [address], 05/29/2025 21:04:42 05/29/20 25 05/29/2025 LIPID PANEL , STAND YOBANI HDL cholesterol 53 mg/dL > or = 40 normal Not Available [address] [address] [place], [address], 05/29/2025 21:04:42 05/29/20 25 05/29/2025 LIPID PANEL , STAND YOBANI triglyceride s 47 mg/dL <150 normal Not Available [address] [address] [place], [address], 05/29/2025 21:04:42 05/29/20 25 05/29/2025 LIPID PANEL [...] 2061- 2068 (http ://ed ucati on.Qu [employer]. com/f aq/FA Q164) Not Available [facility] [place] [address] [address] [place], [address], 05/29/2025 21:04:42 05/29/20 25 05/29/2025 LIPID PANEL , STAND YOBANI chol/HDLC ratio 2.3 (calc ) <5.0 normal Not Available [employer] [place] [address] [place], [address], 05/29/2025 21:04:42 05/29/20 25 05/29/2025 LIPID PANEL , STAND YOBANI non HDL cholesterol 68 mg/dL _(vicente c) <130 normal For patie nts with diabe denilson plus 1 major ASCVD risk facto r, treat ing to a non-H DL-C goal of <100 mg/dL (LDL- C of <70 mg/dL ) is consi kody zaidi optio n. Not Available [address], [address], 05/29/2025 21:04:42 05/29/2005/29/2025 TSH+F REE T4 TSH 1.58 mIU/L 0.40-4 .50 normal Not Available [address], [address], 05/29/2025 21:04:43 05/29/2005/29/2025 TSH+F REE T4 T4, free 1.1 NG/dL 0.8-1. 8 normal Not Available [address], [address], 05/29/2025 21:04:43 05/29/20 25 05/29/2025 BASIC METAB OLIC PANEL glucose 94 mg/dL 65-99 normal Fasti ng refer ence inter ailyn Not Available [address], [address], 05/29/2025 21:04:43 05/29/20 25 05/29/2025 BASIC METAB OLIC PANEL urea nitrogen (BUN) 37 mg/dL 7-25 high Not Available [employer] [address], [address], 05/29/2025 21:04:43 05/29/20 25 05/29/2025 BASIC METAB OLIC PANEL creatinine 1.86 mg/dL 0.70-1 .35 high Not Available [employer] [address], [address], 05/29/2025 21:04:43 05/29/20 25 05/29/2025 BASIC METAB OLIC PANEL eGFR 39 mL/mi n/1.7 3m2 > or = 60 low Not Available [address], [address], 05/29/2025 21:04:43 05/29/20 25 05/29/2025 BASIC METAB OLIC PANEL BUN/creatini ne ratio 20 (calc ) 6-22 normal Not Available [address], [address], 05/29/2025 21:04:43 05/29/20 25 05/29/2025 BASIC METAB OLIC PANEL sodium 138 mmol/ L 135-14 6 normal Not Available [address], [address], 05/29/2025 21:04:43 05/29/20 25 05/29/2025 BASIC METAB OLIC PANEL potassium 4.4 mmol/ L 3.5-5. 3 normal Not Available [address], [address], 05/29/2025 21:04:43 05/29/20 25 05/29/2025 BASIC METAB OLIC PANEL chloride 106 mmol/ L 98-110 normal Not Available [address], [address], 05/29/2025 21:04:43 05/29/20 25 05/29/2025 BASIC METAB OLIC PANEL carbon dioxide 26 mmol/ L 20-32 normal Not Available [address], [address], 05/29/2025 21:04:43 05/29/20 25 05/29/2025 BASIC METAB OLIC PANEL calcium 8.5 mg/dL 8.6-10 .3 low Not Available [address] [place], [address], 05/29/2025 21:04:43 05/29/20 25 05/29/2025 HEPAT IC FUNCT ION PANEL protein, total 6.3 g/dL 6.1-8. 1 normal Not Available [address], [address], 05/29/2025 21:04:44 05/29/20 25 05/29/2025 HEPAT IC FUNCT ION PANEL albumin 4.1 g/dL 3.6-5. 1 normal Not Available [address], [address], 05/29/2025 21:04:44 05/29/20 25 05/29/2025 HEPAT IC FUNCT ION PANEL globulin 2.2 g/dL_ (calc ) 1.9-3. 7 normal Not Available [address], [address], 05/29/2025 21:04:44 05/29/20 25 05/29/2025 HEPAT IC FUNCT ION PANEL albumin/glob ulin ratio 1.9 (calc ) 1.0-2. 5 normal Not Available [address], [address], 05/29/2025 21:04:44 05/29/20 25 05/29/2025 HEPAT IC FUNCT ION PANEL bilirubin, total 0.3 mg/dL 0.2-1. 2 normal Not Available [address], [address], 05/29/2025 21:04:44 05/29/20 25 05/29/2025 HEPAT IC FUNCT ION PANEL bilirubin, direct 0.1 mg/dL < or = 0.2 normal Not Available [address], [address], 05/29/2025 21:04:44 05/29/20 25 05/29/2025 HEPAT IC FUNCT ION PANEL bilirubin, indirect 0.2 mg/dL _(vicente c) 0.2-1. 2 normal Not Available [address], [address], 05/29/2025 21:04:44 05/29/20 25 05/29/2025 HEPAT IC FUNCT ION PANEL alkaline phosphatase 99 U/L 35-144 normal Not Available [facility] [employer] [address], [address], 05/29/2025 21:04:44 05/29/20 25 05/29/2025 HEPAT IC FUNCT ION PANEL AST 24 U/L 10-35 normal Not Available [address], [address], 05/29/2025 21:04:44 05/29/20 25 05/29/2025 HEPAT IC FUNCT ION PANEL ALT 28 U/L 9-46 normal Not Available [employer] [address], [address], 05/29/2025 21:04:44 05/29/20 25 05/29/2025 CBC (INCL UDES DIFF/ PLT) white blood cell count 6.0 thous and/u L 3.8-10 .8 normal Not Available [employer] [address], [address], 05/29/2025 21:04:44 05/29/20 25 05/29/2025 CBC (INCL UDES DIFF/ PLT) red blood cell count 3.92 betina on/uL 4.20-5 .80 low Not Available [employer] [address], [address], 05/29/2025 21:04:44 05/29/20 25 05/29/2025 CBC (INCL UDES DIFF/ PLT) hemoglobin 12.6 g/dL 13.2-1 7.1 low Not Available [employer] [address] [place], [address], 05/29/2025 21:04:44 05/29/20 25 05/29/2025 CBC (INCL UDES DIFF/ PLT) hematocrit 39.0 % 38.5-5 0.0 normal Not Available [address], [address], 05/29/2025 21:04:44 05/29/2005/29/2025 CBC (INCL UDES DIFF/ PLT) MCV 99.5 fL 80.0-1 00.0 normal Not Available [facility] [address], [address], 05/29/2025 21:04:44 05/29/2005/29/2025 CBC (INCL UDES DIFF/ PLT) MCH 32.1 pg 27.0-3 3.0 normal Not Available [address], [address], 05/29/2025 21:04:44 05/29/2005/29/2025 CBC (INCL UDES DIFF/ [...] vicente condi tion. Not Available [facility] [address], [address], 05/29/2025 21:04:44 05/29/2005/29/2025 CBC (INCL UDES DIFF/ PLT) RDW 13.1 % 11.0-1 5.0 normal Not Available [facility] [address], [address], 05/29/2025 21:04:44 05/29/20 25 05/29/2025 CBC (INCL UDES DIFF/ PLT) platelet count 195 thous and/u L 140-40 0 normal Not Available [address], [address], 05/29/2025 21:04:44 05/29/20 25 05/29/2025 CBC (INCL UDES DIFF/ PLT) MPV 10.7 fL 7.5-12 .5 normal Not Available [address], [address], 05/29/2025 21:04:44 05/29/20 25 05/29/2025 CBC (INCL UDES DIFF/ PLT) absolute neutrophils 4170 cells /uL 1500-7 800 normal Not Available [address], [address], 05/29/2025 21:04:44 05/29/20 25 05/29/2025 CBC (INCL UDES DIFF/ PLT) absolute lymphocytes 936 cells /uL 850-39 00 normal Not Available [address], [address], 05/29/2025 21:04:44 05/29/20 25 05/29/2025 CBC (INCL UDES DIFF/ PLT) absolute monocytes 522 cells /uL 200-95 0 normal Not Available [address], [address], 05/29/2025 21:04:44 05/29/20 25 05/29/2025 CBC (INCL UDES DIFF/ PLT) absolute eosinophils 312 cells /uL 15-500 normal Not Available [address], [address], 05/29/2025 21:04:44 05/29/20 25 05/29/2025 CBC (INCL UDES DIFF/ PLT) absolute basophils 60 cells /uL 0-200 normal Not Available [address], [place], [address], 05/29/2025 21:04:44 05/29/2005/29/2025 CBC (INCL UDES DIFF/ PLT) neutrophils 69.5 % normal Not Available [facility] [address], [address], 05/29/2025 21:04:44 05/29/2005/29/2025 CBC (INCL UDES DIFF/ PLT) lymphocytes 15.6 % normal Not Available [facility] [address], [address], 05/29/2025 21:04:44 05/29/2005/29/2025 CBC (INCL UDES DIFF/ PLT) monocytes 8.7 % normal Not Available [facility] [address], [address], 05/29/2025 21:04:44 05/29/2005/29/2025 CBC (INCL UDES DIFF/ PLT) eosinophils 5.2 % normal Not Available [facility] [address], [address], 05/29/2025 21:04:44 05/29/2005/29/2025 CBC (INCL UDES DIFF/ PLT) basophils 1.0 % normal Not Available [facility] [address], [address], 05/29/2025 21:04:44 05/29/2005/29/2025 HEMOG LOBIN A1C hemoglobin [...] diabe denilson for child christine. Not Available [employer] [facility] [address] [place], [address], 05/29/2025 21:04:45 Result Notes None recorded. Problems Name Problem SNOMED Code Status Onset Date Resolution Date Notes Provider Name and Address Organization Details Recorded Time Type 2 diabetes mellitus without complicatio n 334355200 Active 2023 ROSEANNE Kramer Attn: Accountin g,[address] [facility], [place], [place], [address] [place] [address] 2, [facility] 4 09:30:53 Microalbumi airam due to type 2 diabetes mellitus 2363625786944 2 Active 2023 ROSEANNE Kramer Attn: Accountin g,[address] [facility], [place], [place], [address] [place] [address] 2, [facility] - [facility] 4 09:30:54 History of aortic valve replacement 6860998479863 Active 2023 ROSEANNE Kramer Attn: Accountin g,[address] [facility], [place], [place], [address] [place] [address] 2, [facility] - SI 4 09:30:56 Benign essential hypertensio n 2629597 Active 2023 ROSEANNE Kramer Attn: Accountin g,[address] [facility], [place], [address], [facility] 4 09:30:57 Chronic kidney disease stage 3 203359691 Active 2023 ROSEANNE Kramer Attn: Accountin g,[address] [facility], [place], [address], [facility] - [facility] 4 09:30:59 Hypothyroid ism 21099514 Active 2023 ROSEANNE Kramer Attn: Accountin g,[address] [place], [address], [place] [facility] 4 09:31:00 Hyperlipide marcella 20011640 Active 2023 ROSEANNE Kramer Attn: Accountin g,[address] [place], [address], [place] [facility] 4 09:31:01 Asthma 906554718 Active 2023 ROSEANNE Kramer Attn: Accountin g,[address] [place], [address], [place] [facility] 4 09:31:03 Hereditary essential tremor 431896214 Active 2023 ROSEANNE Kramer Attn: Accountin g,[address] [place], [address], [place] [facility] 4 09:31:04 Long-term drug therapy Active 2023 ROSEANNE Kramer Attn: Accountin g,[address] [place], [address], [place] [facility] 4 09:31:06 Family history of malignant neoplasm of prostate 273481932 Active 2023 ROSEANNE Kramer Attn: Accountin g,[address] [place], [address], [place] [facility] 4 09:02:02 Body mass index 25-29 - overweight 453287973 Active 2023 ROSEANNE Kramer Attn: Accountin g,[address] [place], [address], [place] [facility] 4 15:56:09 Overweight 911054647 Active 2024 ROSEANNE Kramer Attn: Accountin g,[address] [place], [address], [place] [facility] 5 09:05:13 Normal pressure hydrocephal 78834200 Active 2024 ROSEANNE Kramer Attn: Amy burgess,[address] [place], [address], [facility] - [facility] 5 09:16:14 Device in situ 682163794 Active 2024 ROSEANNE Kramer Attn: Amy burgess,[address] [place], [address], [facility] - [facility] 5 09:16:15 Erectile dysfunction 365653614 Active 2024 ROSEANNE Kramer Attn: Amy burgess,[address] [place], [address], [facility] - [facility] 5 01:14:51 Delay when starting to pass urine 0563206 Active 2024 ROSEANNE Kramer Attn: Amy burgess,[address] [place], [address], [facility] - [facility] 5 01:14:53 Problem Notes None recorded. Procedures Surgical History Date Name Laterality Status Provider Name and Address Organization Details Recorded Time Heart Surgery completed Jose Alberto Simental MA [facility] 12/02/2023 09:36:06 Imaging Results None recorded. Procedure Notes None recorded. Medical Equipment None Reported. Allergies Allergen ID Allergen Name Allergen Category Reaction Reaction Severity Criticality Documentation Date Start Date Code Code System Note Provider Name and Address Organization Details Recorded Time 825980 aspirin medicatio n Not available Not available Not available 11/30/2023 1191 RxNorm Jose Alberto Simental MA null, [place] - [place] 4 12:01:28 251863 doxycycli ne Not available rash Not available low 05/21/20252020 3640 RxNorm React ion: rash, Not Available christiano - External [employer] - prod 5 12:01:02 063446 levofloxa caleb medicatio n Not available Not available Not available 05/21/20252020 32565 RxNorm Not Available christiano - External Data [employer] - prod 12:01:02 214314 lisinopri l medicatio n cough Not available low 05/21/20252020 49876 RxNorm React ion: cough , Not Available [...] 136/80 mm[Hg] ROSEANNE Kramer Attn: Accounting,[address] [place], [address], [facility] 06/07/2025 08:53:11 Date Recorded Body height Provider Name an d Address Organization Details Last Updated DateTime 06/07/2025 177.8 cm Anjali Alcocer [facility] 06/07/20 25 08:13:27 Date Recorded Body mass index (BMI) Body weight Oxygen saturation Heart rate Systolic And Diastolic Provider Name and Address Organization Details Last Updated DateTime 06/07/2025 24.9 kg/m2 13725.2 g 97 % 96 /min 140/72 mm[Hg] Jasmine Quiñones MA [facility] 5 08:33:03 Social History Question Answer Notes LastModified by Organizat ion Details LastModified Time Tobacco Smoking Status Never Smoker Jose Alberto Simental MA null, [facility] 11/30/2023 12:01:38 Do You Have An Advance [...] anxious, or unable to sleep at night)? DG2004-0 Information not available 11/30/2023 Family History Relationship [...] Skin Problems N Anemia N Heart Attack ([place]) N Diabetes Y Anxiety Disorder N Muscle, [...] [facility] 06/01/2024 08:40:52 Pneumococcal conjugate PCV20, polysaccharide BDU670 conjugate, adjuvant, PF 2 completed JAIME Monk, [...] PF 8 completed Jose Alberto Simental MA [place], [place] - [place] 06/01/2024 08:40:52 Past Encounters Encounter ID Performer Location Encounter Start Date Encounter Closed Date Diagnosis/Indication Diagnosis SNOMED-CT Code Diagnosis ICD10 Code Diagnosis IMO Codes Diagnosis Note [id number] ROSEANNE Kramer [facility] [place] [address] [place] [address] 06/07/2025 08:05:55 06/07/2025 08:56:20 Type 2 diabetes mellitus without complication 386540021 E11.9 6.8% a1c on recent labs. stable on jardiance 25mg daily. Next A1c due in november Microalbum inuria due to type 2 diabetes mellitus 2043359216 9102 E11.29 stable on valsartan 320mg daily continue dosing check albumin also in November Chronic ki dney disease stage 3 005840747 N18.30 due for bmp labs. He doesn't want to see the previous nephrologi st and would like to see another option locally. we will refer to dr. florence crockett. Benign ess ential hypertension 5838559 I10 stable on multiple agents. partially managed by cardiology . 120-130 systolic ranges at home always. nerves during appt times. Hypothyroidism 46119257 E03.9 stable on thyroid supplement . Repeat thyroid panel in November 2025 Hyperlipidemia 10616588 E78.5 Very stable on statin therapy with labs in controlled range. Repeat fasting labs in November Asthma 261090774 J45.90 9 stable on breo therapy. Hereditary essential tremor 634959573 G25.0 mostly left hand. stable on medication . History of aortic valve replacement 7673782847 100 Z95.4 hx noted. Overweight 170510495 E66 .3 Continue diet and exercise Long-term drug therapy 747757016 Z79.899 next labs due in november Screening for malignant neoplasm of prostate 875370525 Z12.5 Annual PSA ordered for early summer as well Family his tory of malignant neoplasm of prostate 805280880 Z80.42 father dx in 70's. Device in situ 624296436 Z98.2 267037 hx noted. Normal pre ssure hydrocephalus 81582671 G91.[address] [place] Delay when starting to pass urine 1931415 R39.11 241362 Following with urology Erectile dysfunction 860 042397 N52.9 55059251 Tadalafil 5 mg daily on board Health Concerns Section Related Observation LastModified by Organization Detai ls LastModified Time None Recorded Concern Status LastModified by Organization Details LastModified Time None Recorded Payers Encounter Date Sequence Insurance Name Policy Number Policy Parry Covered Member ID Parry Member ID Guarantor Name 06/07/2025 1 [employer] (MEDICARE REPLACEMENT/ ADVANTAGE - PPO) [id number] Mikael Rob [id number] Mikael Rob Notes Date Note Type Note [...] with nephrology. ROSEANNE Kramer Attn: Accounting,[address] [place], [address], [place] [facility] 06/23/2025 15:27:35
--- OUTSIDE RECORDS SUMMARY | 2025-07-19 00:27 | XMS_ITS | Clinical Summary ---
Author Organization [facility] Address [address] [place] [address] Phone Care Team Providers Care Machine Maintenance Name Role Phone Ty Jin MD Primary Care Provider [phone] Allergies Active Allergy Reactions Criticality Noted Date [...] 15 mL 3 09/21/19 22 Active Insulin Morehouse, Disposable, (BD Ultra-Fine Mini Pen Needle) 31 gauge x 3/16 NeedleIndications: Type 2 diabetes mellitus without complication, unspecified whether terminal computer operator insulin use Use one needle as [...] be different from the original. 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 [...] Type Department Care Team Description 07/11/2025 Telephone [facility] At [place] [address] [place] [address] Kt Meadows MD Surgical Clearance 07/11/2025 Chart Note [facility] [address] [place] [address] Kt Meadows MD Follow Up 07/10/2025 Telephone [facility] Vascular At [facility] [address] [facility] [facility] [address] [facility] [address] [place] [address] Kt Meadows MD Medication Question 05/28/2025 External Device Data STL ABSTRACTION Provider, Abstract 05/15/2025 External Device Data STL ABSTRACTION Provider, Abstract from Last 3 Months Immunizations Immunization Administration Dates Next Due (PFIZER)(12 YR UP) COVID-19 VACCINE - EMERGENCY USE AUTHORIZATION, MRNA, [id number]) 30 MCG/0.3 ML IM SUSP 07/08/2021,11/02/2020,10/07/2020 (PNEUMOVAX [...] on file Legal Sex Male 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 [place] [address] Health Maintenance Due Date Last [...] Screening 05/04/2029 Medical Devices Implanted Type Area Rural Sociologist Device Identifier Shelf Expiration Date Model / Serial / Lot Clip Ligating Horizon Lg Ti [id number] - Csc - [id number] Implanted:Qty: 1 on 12/08/2021 by Leelee Beverly MD at [facility] Clip Left: Inguinal TELEFLEX- WECK CLOSURE SYS 07/27/2023 [id number] / / [id number] Mesh Soft Mesh 3x6in [id number] - [id number] Implanted:Qty: 1 on 12/08/2021 by Leelee Beverly MD at [facility] Mesh Left: Inguinal CR [employer]ARD[employer] [id number] 07/21/2026 [id number] / / [id number] Sealant Floseal 5ml [id number] - [id number] Implanted:Qty: 1 on 11/01/2017 by Antonio Duque MD at [facility] Sealant N/A: Cranial CHAIREZ- BIOS[employer]ENCE [id number] 11/21/2018 [id number] / / [id number] Cath Ventricular Bactiseal [id number] - [id number] Implanted:Qty: 1 on 11/01/2017 by Antonio Duque MD at [facility] Shunt [employer] 07/24/2018 [id number] / / [id number] Heart Valve Aortic Shunt Strata Ii Reg [id number] - [id number] Implanted:Qty: 1 on 11/01/2017 by Antonio Duque MD at [facility] N/A: Cranial [employer]- NEUROLOGIC TECH 01/22/2020 [id number] / / [id number] Procedures Procedure Name Priority Date/Time Associated Diagnosis [...] LDL-C. Reji SS et al. JOSE. 2013;310(19): 8048-1275 (http://education.SNAPP'/faq/OXF727) CHOL/HDL RATIO 7.3(H) <5.0 (calc) [facility] TOTAL NON-HDL CHOL(LDL+VLDL) 194(H) <130 mg/dL (calc) [facility] Comment: For patients with diabetes plus 1 major ASCVD risk factor, treating to a non-HDL-C goal of <100 mg/dL (LDL-C of <70 mg/dL) is considered a therapeutic option. Test Performed [facility] [address] [place] [address] Jimmie Patten D.O., MPH 01/14/2022 9:56 AM CDT 01/14/2022 10:02 AM CDT us Ty Jin MD CHEMISTRY ORDERABLES Final Re sult [facility] [phone] * HEMOGLOBIN A1C (10/27/2017 10:50 AM CDT) Pathologist [facility] HEMOGLOBIN A1C 5.8 4.0 - 6.0 % 10/27/2017 1:25 PM CDT [facility] EST. AVG GLUCOSE, A1C 120 mg/dL 10/27/2017 1:25 PM CDT [facility] Blood Venipuncture / Unknown 10/27/2017 10:50 AM CDT 10/27/2017 12:45 PM CDT us Antonio Duque MD CHEMISTRY ORDERABLES Final R esult [facility] CLIA# [id number] [address] [place] [address] from Last 3 Months or Most Recently Relevant to Health Maintenance Insurance [facility] Advance Directives For more information, please contact: [phone] * Full Code (Latest Code Status on [...] 8:19 AM 11/01/2017 8:19 AM Care Teams Machine Maintenance Relationship Specialty Start Date [place] [address] [address] [place] [address] PCP - General Internal Medicine 09/14/17
--- OUTSIDE RECORDS SUMMARY | 2025-07-19 00:27 | XMS_ITS | Data Portability ---
Author Organization [place] R[place] Address [address] [facility] [place] [address] Care Team Providers Care Channel Director Name Role Phone RASHMI JACKSON Primary Care [...] serum or plasma 2024 026 [facility], [address], [place], [address], 06/07/2025 08:50:03 hepatic function panel, serum 2024 026 [facility], [address], [place], [address], 06/07/2025 08:50:03 CBC w/ auto diff 2024 026 [facility], [address], [place], [address], 06/07/2025 08:50:03 lipid panel, serum 2024 026 [facility], [address], [place], [address], 06/07/2025 08:50:03 microalbu min/creat inine, mass ratio, urine 2024 026 [facility], [address], [place], [address], 06/07/2025 08:50:03 PSA, serum or plasma 2024 026 [facility], [address], [place], [address], 06/07/2025 08:50:03 HbA1c (hemoglob in A1c), blood 2024 026 [facility], [address], [place], [address], 06/07/2025 08:50:02 TSH + free T4, serum 2024 026 [facility], [address], [place], [address], 06/07/2025 08:50:03 BMP, serum or plasma 2024 025 [facility], [address], [place], [address], 05/29/2025 21:04:43 hepatic function panel, serum 2024 025 [facility], [address], [place], [address], 05/29/2025 21:04:44 CBC w/ auto diff 2024 025 [facility], [address], [place], [address], 05/29/2025 21:04:44 lipid panel, serum 2024 025 [facility], [address], [place], [address], 05/29/2025 21:04:43 PSA, serum or plasma 2024 025 [facility], [address], [place], [address], 12/10/2024 09:50:02 HbA1c (hemoglob in A1c), blood 2024 025 [facility], [address], [place], [address], 05/29/2025 21:04:45 TSH + free T4, serum 2024 025 CH[facility]STIANO [facility], [address], [place], [address], 05/29/2025 21:04:43 BMP, serum or plasma 2023 025 [email or web address] [facility], [address] [place], [address], 12/03/2024 18:00:34 hepatic function panel, serum 2023 025 [email or web address] [facility], [address] [place], [address], 12/03/2024 18:00:13 CBC w/ auto diff 2023 025 [email or web address] [facility], [address] [place], [address], 12/03/2024 18:00:04 lipid panel, serum 2023 025 [email or web address] [facility], [address] [place], [address], 12/03/2024 18:00:20 microalbu min/creat inine, mass ratio, urine 2023 025 CHRISTIANO [facility], [address] [place], [address], 11/27/2024 10:50:34 PSA, serum or plasma 2023 024 [email or web address] [facility], [place], [address], 11/14/2024 11:05:50 HbA1c (hemoglob in A1c), blood 2023 025 [email or web address] [facility], [place], [address], 12/03/2024 18:00:40 TSH + free T4, serum 2023 025 [email or web address] [facility], [address], [place], [address], 12/03/2024 18:00:27 BMP, serum or plasma 2023 024 [email or web address] [facility], [address], [place], [address], 11/14/2024 11:05:49 hepatic function panel, serum 2023 024 [email or web address] [facility], [address], [place], [address], 11/14/2024 11:05:50 CBC w/ auto diff 2023 024 [email or web address] [facility], [address], [place], [address], 11/14/2024 11:05:50 vitamin B12 + folate, serum or blood 2023 024 [email or web address] [facility], [address], [place], [address], 11/14/2024 11:05:50 HbA1c (hemoglob in A1c), blood 2023 024 [email or web address] [facility], [address], [place], [address], 11/14/2024 11:05:49 lipid panel, serum 2023 024 [email or web address] [facility], [address], [place], [address], 11/14/2024 11:05:50 TSH + free T4, serum 2023 024 [email or web address] [facility], [address], [place], [address], 11/14/2024 11:05:50 Referral nephrolog ist referral 2024 025 [email or web address] Florence Silvestre MD, [address], [address], [place], [address], 03/20/2025 14:17:06 Procedures None recorded. Surgeries None recorded. Imaging None recorded. Medication Orders tamsulosi n 0.4 mg capsule 2024 025 [facility], [address], [place], [address], 01/17/2025 20:47:18 Patient TargetsNo targets recorded. Patient Instructions Encounter Date Encounter Id Patient Instructions Last Modified By Organization Details Last Modified Time 06/01/2024 [id number] A healthy lifestyle: care instructions Not available 06/21/2024 15:56:07 11/30/2024 [id number] A healthy lifestyle: care instructions Not available 11/30/2024 09:14:35 06/07/2025 [id number] A healthy lifestyle: care instructions Not available 06/07/2025 08:50:03 Reason for Referral Line Puller Referral for Ch ronic kidney disease stage [...] [#/volume] in blood by automated count absol [facility] neutr ophil s Not Available Not Available 09/20/2024 16:57:20 11/17/19 24 11/18/2023 CBC W Auto Diffe renti al panel - Blood lymphocytes [#/volume] in blood by automated count absol [place] lymph ocyte s Not Available Not Available 09/20/2024 16:57:20 11/17/19 24 11/18/2023 CBC W Auto Diffe renti al panel - Blood monocytes [#/volume] in blood by automated count absol [facility] monoc ytes Not Available Not Available 09/20/2024 16:57:20 11/17/19 24 11/18/2023 CBC W Auto Diffe renti al panel - Blood eosinophils [#/volume] in blood by automated count absol [place] eosin ophil s Not Available Not Available 09/20/2024 16:57:20 11/17/19 24 11/18/2023 CBC W Auto Diffe renti al panel - Blood basophils [#/volume] in blood by automated count absol [facility] basop hils Not Available Not Available 09/20/2024 [...] Not Available 09/20/2024 16:57:20 11/17/19 24 11/18/2023 [facility] 1999 panel - Serum or Plasm a glucose [mass/volume ] in serum or plasma high gluco se Not Available Not Available 09/20/2024 16:57:20 11/17/19 24 11/18/2023 [facility] 1999 panel - Serum or Plasm a urea nitrogen [mass/volume ] in serum or plasma high urea nitro gen (BUN) Not Available Not Available 09/20/2024 16:57:20 11/17/19 24 11/18/2023 [facility] 1999 panel - Serum or Plasm a creatinine [mass/volume ] in serum or plasma high creat inine Not Available Not Available 09/20/2024 16:57:20 11/17/19 24 11/18/2023 [facility] 1999 panel - Serum or Plasm a glomerular filtration rate/1.73 sq M.predicted [volume rate/area] in serum, plasma or blood by creatinine-b ased formula (CKD-epi 2020) low eGFR Not Available Not Available 08/26 16:57:20 11/17/19 24 11/18/2023 [facility] 1999 panel - Serum or Plasm a urea nitrogen/cre atinine [mass ratio] in serum or plasma high BUN/c reati nine ratio Not Available Not Available 09/20/2024 16:57:20 11/17/19 24 11/18/2023 [facility] 1999 panel - Serum or Plasm a sodium [moles/volum e] in serum or plasma sodiu m Not Available Not Available 09/20/2024 16:57:20 11/17/19 24 11/18/2023 [facility] 1999 panel - Serum or Plasm a potassium [moles/volum e] in serum or plasma potas sium Not Available Not Available 09/20/2024 16:57:20 11/17/19 24 11/18/2023 [facility] 1999 panel - Serum or Plasm a [...] 25 05/29/2025 LIPID PANEL , STAND YOBANI cholesterol, total 121 mg/dL <200 normal Not Available [facility] [address], [address], 05/29/2025 21:04:42 05/29/20 25 05/29/2025 LIPID PANEL , STAND YOBANI HDL cholesterol 53 mg/dL > or = 40 normal Not Available [employer] [address], [address], 05/29/2025 21:04:42 05/29/20 25 05/29/2025 LIPID PANEL , STAND YOBANI triglyceride s 47 mg/dL <150 normal Not Available [employer] [address], [address], 05/29/2025 21:04:42 05/29/20 25 05/29/2025 LIPID PANEL [...] 2061- 206 (http ://ed ucati on.Qu estDi Vigoda. com/f aq/FA Q164) Not Available [facility] [address], [address], 05/29/2025 21:04:42 05/29/20 25 05/29/2025 LIPID PANEL , STAND YOBANI chol/HDLC ratio 2.3 (calc ) <5.0 normal Not Available [facility] [address], [address], 05/29/2025 21:04:42 05/29/20 25 05/29/2025 LIPID PANEL , STAND YOBANI non HDL cholesterol 68 mg/dL _(vicente c) <130 normal For patie nts with diabe denilson plus 1 major ASCVD risk facto r, treat ing to a non-H DL-C goal of <100 mg/dL (LDL- C of <70 mg/dL ) is consi zad a tatyana paige c optio n. Not Available [employer] [address] [address] [place], [address], 05/29/2025 21:04:42 05/29/20 25 05/29/2025 TSH+F REE T4 TSH 1.58 mIU/L 0.40-4 .50 normal Not Available [employer] [address] [address] [place], [address], 05/29/2025 21:04:43 05/29/20 25 05/29/2025 TSH+F REE T4 T4, free 1.1 NG/dL 0.8-1. 8 normal Not Available [address], [address], 05/29/2025 21:04:43 05/29/20 25 05/29/2025 BASIC METAB OLIC PANEL glucose 94 mg/dL 65-99 normal Fasti ng refer ence inter ailyn Not Available [address], [address], 05/29/2025 21:04:43 05/29/20 25 05/29/2025 BASIC METAB OLIC PANEL urea nitrogen (BUN) 37 mg/dL 7-25 high Not Available [address], [address], 05/29/2025 21:04:43 05/29/20 25 05/29/2025 BASIC METAB OLIC PANEL creatinine 1.86 mg/dL 0.70-1 .35 high Not Available [address], [address], 05/29/2025 21:04:43 05/29/20 25 05/29/2025 BASIC METAB OLIC PANEL eGFR 39 mL/mi n/1.7 3m2 > or = 60 low Not Available [address], [address], 05/29/2025 21:04:43 05/29/20 25 05/29/2025 BASIC METAB OLIC PANEL BUN/creatini ne ratio 20 (calc ) 6-22 normal Not Available [address], [address], 05/29/2025 21:04:43 05/29/20 25 05/29/2025 BASIC METAB OLIC PANEL sodium 138 mmol/ L 135-14 6 normal Not Available [address], [address], 05/29/2025 21:04:43 05/29/20 25 05/29/2025 BASIC METAB OLIC PANEL potassium 4.4 mmol/ L 3.5-5. 3 normal Not Available [address], [address], 05/29/2025 21:04:43 05/29/20 25 05/29/2025 BASIC METAB OLIC PANEL chloride 106 mmol/ L 98-110 normal Not Available [address], [address], 05/29/2025 21:04:43 05/29/20 25 05/29/2025 BASIC METAB OLIC PANEL carbon dioxide 26 mmol/ L 20-32 normal Not Available [address], [address], 05/29/2025 21:04:43 05/29/20 25 05/29/2025 BASIC METAB OLIC PANEL calcium 8.5 mg/dL 8.6-10 .3 low Not Available [address], [address], 05/29/2025 21:04:43 05/29/20 25 05/29/2025 HEPAT IC FUNCT ION PANEL protein, total 6.3 g/dL 6.1-8. 1 normal Not Available [address], [address], 05/29/2025 21:04:44 05/29/20 25 05/29/2025 HEPAT IC FUNCT ION PANEL albumin 4.1 g/dL 3.6-5. 1 normal Not Available [address], [address], 05/29/2025 21:04:44 05/29/20 25 05/29/2025 HEPAT IC FUNCT ION PANEL globulin 2.2 g/dL_ (calc ) 1.9-3. 7 normal Not Available [address], [address], 05/29/2025 21:04:44 05/29/20 25 05/29/2025 HEPAT IC FUNCT ION PANEL albumin/glob ulin ratio 1.9 (calc ) 1.0-2. 5 normal Not Available [address], [address], 05/29/2025 21:04:44 05/29/20 25 05/29/2025 HEPAT IC FUNCT ION PANEL bilirubin, total 0.3 mg/dL 0.2-1. 2 normal Not Available [address], [address], 05/29/2025 21:04:44 05/29/20 25 05/29/2025 HEPAT IC FUNCT ION PANEL bilirubin, direct 0.1 mg/dL < or = 0.2 normal Not Available [address], [address], 05/29/2025 21:04:44 05/29/20 25 05/29/2025 HEPAT IC FUNCT ION PANEL bilirubin, indirect 0.2 mg/dL _(vicente c) 0.2-1. 2 normal Not Available [address], [address], 05/29/2025 21:04:44 05/29/20 25 05/29/2025 HEPAT IC FUNCT ION PANEL alkaline phosphatase 99 U/L 35-144 normal Not Available [facility] [address], [address], 05/29/2025 21:04:44 05/29/20 25 05/29/2025 HEPAT IC FUNCT ION PANEL AST 24 U/L 10-35 normal Not Available [address], [address], 05/29/2025 21:04:44 05/29/20 25 05/29/2025 HEPAT IC FUNCT ION PANEL ALT 28 U/L 9-46 normal Not Available [address] [place], [address], 05/29/2025 21:04:44 05/29/20 25 05/29/2025 CBC (INCL UDES DIFF/ PLT) white blood cell count 6.0 thous and/u L 3.8-10 .8 normal Not Available [address], [address], 05/29/2025 21:04:44 05/29/20 25 05/29/2025 CBC (INCL UDES DIFF/ PLT) red blood cell count 3.92 betina on/uL 4.20-5 .80 low Not Available [facility] [address], [address], 05/29/2025 21:04:44 05/29/20 25 05/29/2025 CBC (INCL UDES DIFF/ PLT) hemoglobin 12.6 g/dL 13.2-1 7.1 low Not Available [facility] [address], [address], 05/29/2025 21:04:44 05/29/20 25 05/29/2025 CBC (INCL UDES DIFF/ PLT) hematocrit 39.0 % 38.5-5 0.0 normal Not Available [address], [address], 05/29/2025 21:04:44 05/29/20 25 05/29/2025 CBC (INCL UDES DIFF/ PLT) MCV 99.5 fL 80.0-1 00.0 normal Not Available [facility] [address], [address], 05/29/2025 21:04:44 05/29/20 25 05/29/2025 CBC (INCL UDES DIFF/ PLT) MCH 32.1 pg 27.0-3 3.0 normal Not Available [facility] [address], [address], 05/29/2025 21:04:44 05/29/20 25 05/29/2025 CBC (INCL UDES DIFF/ PLT) MCHC 32.3 g/dL 32.0-3 6.0 normal For adult s, a sligh t decre ase in the calcu lated MCHC value (in the range of 30 to 32 g/dL) is most likel y not clini erwin signi roshan t; romeo er, it shoul d be inter prete d with cauti on in corre [facility] n with other red cell manuela eters and the patie nt's clini vicente condi tion. Not Available [address], [address], 05/29/2025 21:04:44 05/29/2005/29/2025 CBC (INCL UDES DIFF/ PLT) RDW 13.1 % 11.0-1 5.0 normal Not Available [address], [address], 05/29/2025 21:04:44 05/29/20 25 05/29/2025 CBC (INCL UDES DIFF/ PLT) platelet count 195 thous and/u L 140-40 0 normal Not Available [address], [address], 05/29/2025 21:04:44 05/29/20 25 05/29/2025 CBC (INCL UDES DIFF/ PLT) MPV 10.7 fL 7.5-12 .5 normal Not Available [address], [address], 05/29/2025 21:04:44 05/29/20 25 05/29/2025 CBC (INCL UDES DIFF/ PLT) absolute neutrophils 4170 cells /uL 1500-7 800 normal Not Available [address], [address], 05/29/2025 21:04:44 05/29/20 25 05/29/2025 CBC (INCL UDES DIFF/ PLT) absolute lymphocytes 936 cells /uL 850-39 00 normal Not Available [address], [address], 05/29/2025 21:04:44 05/29/20 25 05/29/2025 CBC (INCL UDES DIFF/ PLT) absolute monocytes 522 cells /uL 200-95 0 normal Not Available [address], [address], 05/29/2025 21:04:44 05/29/20 25 05/29/2025 CBC (INCL UDES DIFF/ PLT) absolute eosinophils 312 cells /uL 15-500 normal Not Available [address], [address], 05/29/2025 21:04:44 05/29/20 25 05/29/2025 CBC (INCL UDES DIFF/ PLT) absolute basophils 60 cells /uL 0-200 normal Not Available [address], [address], 05/29/2025 21:04:44 05/29/20 25 05/29/2025 CBC (INCL UDES DIFF/ PLT) neutrophils 69.5 % normal Not Available [address], [address], 05/29/2025 21:04:44 05/29/20 25 05/29/2025 CBC (INCL UDES DIFF/ PLT) lymphocytes 15.6 % normal Not Available [address], [address], 05/29/2025 21:04:44 05/29/20 25 05/29/2025 CBC (INCL UDES DIFF/ PLT) monocytes 8.7 % normal Not Available [address], [address], 05/29/2025 21:04:44 05/29/20 25 05/29/2025 CBC (INCL UDES DIFF/ PLT) eosinophils 5.2 % normal Not Available [facility] [address] [address] [place], [address], 05/29/2025 21:04:44 05/29/20 25 05/29/2025 CBC (INCL UDES DIFF/ PLT) basophils 1.0 % normal Not Available [facility] [address] [place], [address], 05/29/2025 21:04:44 05/29/20 25 05/29/2025 HEMOG LOBIN [...] diabe denilson for child christine. Not Available [facility] [address] [address] [place], [address], 05/29/2025 21:04:45 06/25/20 24 06/23/2024 XR, hip + pelvi s, unila teral , 2 or 3 view No observ ation record ed. [facility]RIST[facility]O [facility] [address], [place], [address], 06/25/2024 15:25:54 08/08/19 25 08/08/2024 MRI, lumba r spine , w/o contr ast No observ ation record ed. [facility] [address], [place], [address], 08/10/2024 14:47:23 10/06/19 25 10/05/2024 XR, chest , 2 view No observ ation record ed. [facility]STIANO [facility] [address], [place], [address], 10/10/2024 14:43:08 02/28/20 25 02/20/2025 US, kidne y No observ ation record ed. [facility] [address], [place], [address], 02/27/2025 10:17:25 Result Notes None recorded. Problems Name Problem SNOMED Code Status Onset Date Resolution Date Notes Provider Name and Address Organization Details Recorded Time Type 2 diabetes mellitus without complicatio n 998254995 Active 2023 ROSEANNE Kramer Attn: Amy burgess,[address] [facility], [place], [address], [facility] - [facility] 4 09:30:53 Microalbumi airam due to type 2 diabetes mellitus 0796647584594 2 Active 2023 ROSEANNE Kramer Attn: Amy burgess,[address] [facility], [place], [address], [facility] - [facility] 4 09:30:54 History of aortic valve replacement 9430883744204 Active 2023 ROSEANNE Kramer Attn: Amy burgess,[address] [facility], [place], [address], [place] [facility] 4 09:30:56 Benign essential hypertensio n 9917746 Active 2023 ROSEANNE Kramer Attn: Amy g,[address] [facility], [place], [address], [place] [facility] 4 09:30:57 Chronic kidney disease stage 3 313477360 Active 2023 ROSEANNE Kramer Attn: Accountin g,[address] [facility], [place], [address], [place] [facility] 4 09:30:59 Hypothyroid ism 62170408 Active 2023 ROSEANNE Kramer Attn: Accountin g,[address] [facility], [place], [address], [place] [facility] 4 09:31:00 Hyperlipide marcella 21924509 Active 2023 ROSEANNE Kramer Attn: Accountin g,[address] [facility], [place], [address], [place] [facility] 4 09:31:01 Asthma 618944008 Active 2023 ROSEANNE Kramer Attn: Accountin g,[address] [facility], [place], [address], [place] [facility] 4 09:31:03 Hereditary essential tremor 763215923 Active 2023 ROSEANNE Kramer Attn: Accountin g,[address] [facility], [place], [address], [place] [facility] 4 09:31:04 Long-term drug therapy Active 2023 ROSEANNE Kramer Attn: Accountin g,[address] [facility], [place], [address], [place] [facility] 4 09:31:06 Family history of malignant neoplasm of prostate 266295356 Active 2023 ROSEANNE Kramer Attn: Accountin g,[address] [facility], [place], [address], [place] [facility] 4 09:02:02 Body mass index 25-29 - overweight 608724000 Active 2023 ROSEANNE Kramer Attn: Accountin g,[address] [facility], [place], [address], [place] [facility] 4 15:56:09 Overweight 819709048 Active 2024 ROSEANNE Kramer Attn: Amy burgess,[address] [facility], [place], [address], [facility] - [facility] 5 09:05:13 Normal pressure hydrocephal 42058192 Active 2024 ROSEANNE Kramer Attn: Amy burgess,[address] [place], [address], [facility] 5 09:16:14 Device in situ 140903643 Active 2024 ROSEANNE Kramer Attn: Amy burgess,[address] [place], [address], [facility] - [facility] 5 09:16:15 Erectile dysfunction 610418147 Active 2024 ROSEANNE Kramer Attn: Amy burgess,[address] [place], [address], [facility] 5 01:14:51 Delay when starting to pass urine 7774216 Active 2024 ROSEANNE Kramer Attn: Amy burgess,[address] [place], [address], [facility] - [facility] 5 01:14:53 Problem Notes None recorded. Procedures Surgical History Date Name Laterality Status Provider Name and Address Organization Details Recorded Time Heart Surgery completed Jose Alberto Simental MA [facility] 12/02/2023 09:36:06 Imaging Results None recorded. Procedure Notes None recorded. Medical Equipment None Reported. Allergies Allergen ID Allergen Name Allergen Category Reaction Reaction Severity Criticality Documentation Date Start Date Code Code System Note Provider Name and Address Organization Details Recorded Time 114714 aspirin medicatio n Not available Not available Not available 11/30/2023 1191 RxNorm Jose Alberto Simental MA [facility], [facility] 4 12:01:28 667401 doxycycli ne Not available rash Not available low 05/21/20252020 3640 RxNorm React ion: rash, Not Available christiano - External Data Service - prod 12:01:02 050732 levofloxa caleb medicatio n Not available Not available Not available 05/21/20252020 71448 RxNorm Not Available christiano - External Data Service - prod 12:01:02 792185 lisinopri l medicatio n cough Not available low 05/21/20252020 96966 RxNorm React ion: cough , Not Available formerly [facility] External Data Service - [facility] 12:01:02 Medications Name Sig Start Date [...] /min 150/80 mm[Hg] ROSEANNE Kramer Attn: Accounting,[address] [place], [address], [facility] 11/30/2024 09:28:26 Date Recorded Body height Body mass index (BMI) Body weight Oxygen saturation Heart rate Systolic And Diastolic Provider Name and Address Organization Details Last Updated DateTime 177.8 cm 25.5 kg/m2 70329.4 4 g 99 % 75 /min 150/82 mm[Hg] Jose Alberto Simental MA [facility] 5 09:01:10 Date Recorded Systolic And Diastolic Provider Name and Address Organization Details Last Updated DateTime 12/02/2023 132/70 mm[Hg] ROSEANNE Kramer Attn: Accounting,[address] [place], [address], [facility] 12/02/2023 09:26:25 Date Recorded Body height Body mass index (BMI) Body weight Respiratory rate Oxygen saturation Heart rate Systolic And Diastolic Provider Name and Address Organization Details Last Updated DateTime 177.8 cm 27.4 kg/m2 17247.1 4 g 20 /min 97 % 67 /min 132/78 mm[Hg] Jose Alberto Simental MA [facility] 4 09:01:17 Date Recorded Systolic And Diastolic Provider Name and Address Organization Details Last Updated DateTime 06/01/2024 150/80 mm[Hg] ROSEANNE Kramer Attn: Accounting,[address] [place], [address], [facility] 06/01/2024 09:07:07 Date Recorded Body height Body mass index (BMI) Body weight Respiratory rate Oxygen saturation Heart rate Systolic And Diastolic Provider Name and Address Organization Details Last Updated DateTime 177.8 cm 27.1 kg/m2 21267.9 6 g 20 /min 100 % 64 /min 148/80 mm[Hg] Jose Alberto Simental MA [facility] 16:41:47 Date Recorded Respiratory rate Systolic And Diastolic Provider Name and Address Organization Details Last Updated DateTime 06/07/2025 16 /min 136/80 mm[Hg] ROSEANNE Kramer Attn: Accounting, [place], [address], [facility] 06/07/2025 08:53:11 Date Recorded Body height Provider Name an d Address Organization Details Last Updated DateTime 06/07/2025 177.8 cm Anjali Alcocer [facility] 06/07/20 25 08:13:27 Date Recorded Body mass index (BMI) Body weight Oxygen saturation Heart rate Systolic And Diastolic Provider Name and Address Organization Details Last Updated DateTime 06/07/2025 24.9 kg/m2 03084.2 g 97 % 96 /min 140/72 mm[Hg] Jasmine Quiñones MA [facility] 5 08:33:03 Social History Question Answer Notes LastModified by Organizat ion Details LastModified Time Tobacco Smoking Status Never Smoker Jose Alberto Simental [facility], [place] - [facility] 11/30/2023 12:01:38 Do You Have [...] anxious, or unable to sleep at night)? [id number] Information not available 11/30/2023 Family History Relationship [...] Skin Problems N Anemia N Heart Attack ([place]) N Anxiety Disorder N Diabetes Y Muscle, [...] [facility] 06/01/2024 08:40:52 Pneumococcal conjugate PCV20, polysaccharide HWB221 conjugate, adjuvant, PF 2 completed JAIME Monk, [...] 1 completed Jose Alberto Simental MA null, [facility] 06/01/2024 08:40:52 Influenza, split virus, quadrivalent, PF 8 completed Jose Alberto Simental MA null, [facility] 06/01/2024 08:40:52 Past Encounters Encounter ID Performer Location Encounter Start Date Encounter Closed Date Diagnosis/Indication Diagnosis SNOMED-CT Code Diagnosis ICD10 Code Diagnosis IMO Codes Diagnosis Note [id number] Mikael Morin MD PENDING SALE TO [facility] [address] [place] [address] 12/02/2023 08:40:40 12/02/2023 09:49:58 History of aortic valve replacement 3550674876 100 Z95.4 hx noted. Hereditary essential tremor 343569730 G25.0 mostly left hand. stable on medication . Hypothyroidism 16119133 E03.9 stable on thyroid supplement . due for TFTs. Benign ess ential hypertension 5514060 I10 stable on multiple agents. partially managed by cardiology . Hyperlipidemia 69664479 E78.5 stable on statin therapy. due for fasting lipids. Asthma 497811388 J45.90 9 stable on breo therapy. Long-term drug therapy 447843367 Z79.899 cmp, cbc and b12, folate labs are due Type 2 dong betes mellitus without complication 544322617 E11.9 due for updated a1c. stable on jardiance 25mg daily. Microalbum inuria due to type 2 diabetes mellitus 0185050734 9102 E11.29 stable on valsartan 320mg daily. Chronic ki dney disease stage 3 869942375 N18.30 due for bmp labs. following with nephrology . [id number] Mikael Morin MD PENDING SALE TO [facility] [address] [place] [address] 06/01/2024 08:30:02 06/04/2024 16:28:43 Type 2 diabetes mellitus without complication 790573944 E11.9 6.5% A1c on recent labs. stable on jardiance 25mg daily. Next labs due October Microalbum inuria due to type 2 diabetes mellitus 5385943993 9102 E11.29 stable on valsartan 320mg daily. Annual microalbum in will be due in October History of aortic valve replacement 4330320052 100 Z95.4 hx noted. Benign ess ential hypertension 8050456 I10 stable on multiple agents. partially managed by cardiology . Chronic ki dney disease stage 3 514228701 N18.30 due for bmp labs. following with nephrology . 1.9 creatinine on recent labs Hypothyroidism 39475928 E03.9 stable on thyroid supplement . Repeat thyroid function panel in October Hyperlipidemia 90876447 E78.5 Very stable on statin therapy with labs in controlled range. Next fasting lipids also due in October Asthma 620773022 J45.90 9 stable on breo therapy. Hereditary essential tremor 056912289 G25.0 mostly left hand. stable on medication . Long-term drug therapy 894532963 Z79.899 Screening for malignant neoplasm of prostate 586873146 Z12.5 Annual PSA will be due now Family his tory of malignant neoplasm of prostate 019243807 Z80.42 father dx in 70's. Body mass index 25-29 - overweight 403928493 Z68.27 BMI is 27.1 Overweight 465541219 E66 .3 [id number] Mikael Morin MD [facility] [place] [address] [place] [address] 11/30/2024 08:50:40 11/30/2024 10:42:35 Body mass index 25-29 - overweight 015574175 Z68.27 BMI is 25.5 Overweight 825213994 E66 .3 Continue diet and exercise Benign ess ential hypertension 0939357 I10 stable on multiple agents. partially managed by cardiology . 120-130 systolic ranges at home always. nerves during appt times. Type 2 dong betes mellitus without complication 248084128 E11.9 7.1% a1c on recent labs. stable on jardiance 25mg daily. Next A1c due in May Microalbum inuria due to type 2 diabetes mellitus 4437638028 9102 E11.29 stable on valsartan 320mg daily History of aortic valve replacement 9323121716 100 Z95.4 hx noted. Chronic ki dney disease stage 3 545211567 N18.30 due for bmp labs. He doesn't want to see the previous nephrologi st and would like to see another option locally. we will refer to dr. florence silvestre. Hypothyroidism 28254408 E03.9 stable on thyroid supplement . Repeat thyroid function panel in October Hyperlipidemia 37041654 E78.5 Very stable on statin therapy with labs in controlled range. Next fasting lipids also due in October Asthma 500812690 J45.90 9 stable on breo therapy. Hereditary essential tremor 808226655 G25.0 mostly left hand. stable on medication . Long-term drug therapy 144921188 Z79.899 Routine labs due in May Screening for malignant neoplasm of prostate 568246345 Z12.5 Annual PSA will be due now Family his tory of malignant neoplasm of prostate 342303502 Z80.42 father dx in 70's. Device in situ 047218067 Z98.2 199963 hx noted. Normal pre ssure hydrocephalus 62608967 G91.[address] [place]ay when starting to pass urine 9417930 R39.11 354585 Start trial of tamsulosin 0.4 mg daily Erectile dysfunction 860 042117 N52.9 14165277 Question starting cialis 5 mg daily if Cardiology approves and medication can be changed from long-actin g nitrate [id number] ROSEANNE Kramer [facility] [address] [place] [address] 06/07/2025 08:05:55 06/07/2025 08:56:20 Type 2 diabetes mellitus without complication 245968676 E11.9 6.8% a1c on recent labs. stable on jardiance 25mg daily. Next A1c due in november Microalbum inuria due to type 2 diabetes mellitus 7841403336 9102 E11.29 stable on valsartan 320mg daily continue dosing check albumin also in November Chronic ki dney disease stage 3 779755076 N18.30 due for bmp labs. He doesn't want to see the previous nephrologi st and would like to see another option locally. we will refer to dr. florence silvestre. Benign ess ential hypertension 8817625 I10 stable on multiple agents. partially managed by cardiology . 120-130 systolic ranges at home always. nerves during appt times. Hypothyroidism 86879158 E03.9 stable on thyroid supplement . Repeat thyroid panel in November 2025 Hyperlipidemia 25512819 E78.5 Very stable on statin therapy with labs in controlled range. Repeat fasting labs in November Asthma 430760137 J45.90 9 stable on breo therapy. Hereditary essential tremor 518177227 G25.0 mostly left hand. stable on medication . History of aortic valve replacement 3075696499 100 Z95.4 hx noted. Overweight 741146012 E66 .3 Continue diet and exercise Long-term drug therapy 582382206 Z79.899 next labs due in november Screening for malignant neoplasm of prostate 435133945 Z12.5 Annual PSA ordered for early summer as well Family his tory of malignant neoplasm of prostate 869726548 Z80.42 father dx in 70's. Device in situ 274022528 Z98.2 773682 hx noted. Normal pre ssure hydrocephalus 34569344 G91.[address] [place] Delay when starting to pass urine 2416067 R39.11 442316 Following with urology Erectile dysfunction 860 112918 N52.9 90586773 Tadalafil 5 mg daily on board Health Concerns Section Related Observation LastModified by Organization Detai ls LastModified Time None Recorded Concern Status LastModified by Organization Details LastModified Time None Recorded Advance Directives Directive Y: Payers Insurance Date Sequence Insurance Name Policy Number Policy Parry Covered Member ID Parry Member ID Guarantor Name 06/25/2025 1 [employer] (MEDICARE REPLACEMENT/ ADVANTAGE - PPO) [id number] Mikael Rob [id number] Mikael Rob Notes Date Note Type Note [...] with nephrology. ROSEANNE Kramer Attn: Accounting,[address], [place], [address], [facility] 03/01/2024 17:49:16 4 text/html HyperlipidemiaReported [...] with nephrology. ROSEANNE Kramer Attn: Accounting,[address] [facility], [place], [address], [facility] 06/21/2024 15:56:27 5 text/html HyperlipidemiaReported [...] with nephrology. ROSEANNE Kramer Attn: Accounting,[address], [place], [address], [facility] 12/18/2024 01:15:35 5 text/html HyperlipidemiaReported [...] with nephrology. ROSEANNE Kramer Attn: Accounting,[address] [facility], [place], [address], [facility] 06/23/2025 15:27:35
--- OUTSIDE RECORDS SUMMARY | 2025-07-19 00:27 | XMS_ITS | Patient Health Record ---
Author Organization [facility] Office Address [address] [place] [address] Support Name Relationship Address Phone JULI STEVE Guarantor Unknown [phone] Reason For Referral No Information Medications Medication SIG (Take, Route, Fr equency, Duration) Notes Start Date End Date Status Furosemide 40 MG Take 1 tablet by jenna th once daily; Duration: 90 Active Lasix 40 MG 1 tablet Orally Once a day; Duration: 90 day(s) Active Problems Problem Type SNOMED Code ICD Code Onset Dates Problem Status W/U Status Risk Notes Problem Hypothyroidism (87967964) Hypothyroidism, unspecified (E03.9) Active confirmed Problem Hyperglycemia due to type 2 diabetes mellitus (512302755127701) Type 2 diabetes mellitus with hyperglycemia (E11.65) Active confirmed Problem Hyperuricemia without signs of inflammatory arthritis and tophaceous disease (668854101) Hyperuricemia without signs of inflammatory arthritis and tophaceous disease (E79.0) Active confirmed Problem Essential hypertension (91925573) Essential (primary) hypertension (I10) Active confirmed Problem Chronic kidney disease stage 3B (disorder) (686872549) Chronic kidney disease, stage 3b (N18.32) Active confirmed Plan Of Treatment Pending Test Test Name Order Date PTH, INTACT AND CALCIUM (8837) 4 RENAL FUNCTION PANEL (87294) 09/22/2023 URIC ACID (905) 09/22/2023 PROTEIN, TOTAL W/CREAT, RANDOM URINE (17 15) 09/22/2023 CBC (INCLUDES DIFF/PLT) (6399) URINALYSIS, COMPLETE W/REFLEX TO CULTURE (3020) 09/22/2023 VITAMIN D,25-OH,TOTAL,IA (30092) 024 REFLEXIVE URINE CULTURE 09/22/2023
--- OUTSIDE RECORDS SUMMARY | 2025-07-19 00:27 | XMS_ITS | Encounter Summary ---
Author Organization [facility] Address [address] [place] [address] Phone Care Team Providers Care Card Room Manager Name Role Phone Ty Jin MD Primary Care Provi dwaine Encounter Details Date Type Department Care Team (Late st Contact Info) Description 09/30/2017 Orders Only [facility] ProviderFlakita MD [address] [place] [address] Social History Tobacco Use Types Packs/Day Years Used Date Smoking Tobacco: Never Smokeless Tobacco: Never Alcohol Use Standard Drinks/Week Comments Yes 0 (1 standard drink = 0.6 oz pur e alcohol) Sex and Gender Information Value Date Recorded Sex Assigned at Not on file Legal Sex Male 6:28 PM [employer] Gender Identity Not on file Sexual Orientation Not on file documented as of this encounter Plan of Treatment Not on file documented as of this encounter Procedures Procedure Name Priority Date/Time Associated Diagnosis Comments DISCHARGE LABORATORY CUMULATIVE REPORT 09/30/2017 12:00 AM [employer]IC documented in this encounter Results * DISCHARGE LABORATORY CUMULATIVE REPORT (09/30/2017 12:00 AM [employer] MECH[employer]IC) Narrative 09/30/2017 12:00 AM [employer]IC Ordered by an unspecified provider. 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
--- OUTSIDE RECORDS SUMMARY | 2025-07-19 00:27 | XMS_ITS | Data Portability ---
Author Organization [place] [facility],, Yaritza carson Address [address] [place] [address] Assessment Encounter Date Assessment Date Assessment LastModified [...] t 10 mg tablet 2018 019 INTERFACE [facility] [address], [address] [place] [address], [address], 9 09:57:06 Patient TargetsNo targets recorded. Patient Instructions Encounter Date Encounter Id Patient Instructions Last Modified By Organization Details Last Modified Time 07/07/2019 [id number] controlling your asthma: care instructions [email or web address] Not available 07/07/2019 09:25:17 learning about asthma [email or web address] Not available 07/07/2019 09:25:17 spirometry testing* BETTY Not available 07/07/2019 10:28:56 asthma control test* [email or web address] Not available 07/07/2019 09:25:17 09/14/2019 [id number] controlling your asthma: care instructions [email or web address] Not [...] In Medicine [address], [place], [address], 07/07/2019 09:21:00 07/07/20 19 07/07/2019 jarrell metry testi ng* fev1 57 Not Available [facility] [address], [place], [address], 07/07/2019 09:20:58 07/07/20 19 07/07/2019 jarrell metry testi ng* fvc 58 Not Available [facility] [address] [facility] [address], [place], [address], 07/07/2019 09:20:58 07/07/20 19 07/07/2019 jarrell metry testi ng* % reversibilit y 10 Not Available [facility] [address] [facility] [address], [place], [address], 07/07/2019 09:20:58 09/14/19 20 09/14/2019 jarrell metry testi ng* fev1 61 Not Available [facility] [address] [facility] [address], [place], [address], 09/14/2019 13:23:26 09/14/19 20 09/14/2019 jarrell metry testi ng* fvc 65 Not Available [facility] [address] [facility] [address], [place], [address], 09/14/2019 13:23:26 09/14/19 20 09/14/2019 jarrell metry testi ng* % reversibilit y Not Available [facility] [address] [facility] [address], [place], [address], 09/14/2019 13:23:26 07/07/20 19 jarrell metry testi [...] and Address Organization Details Recorded Time Asthma 003589917 Active [address], [place], [address] , [place] [facility], 9 09:11:14 Aspirin exacerbated respiratory disease 8660052632278 9108 Active [address], [place], [address] , [place] [facility], 9 09:11:26 Coronary arterioscle rosis 16872098 Active [address], [place], [address] , [place] [facility], 9 09:11:34 Diabetes mellitus 79227998 Active [address], [place], [address] [place] [facility], 9 09:11:55 Sinusitis co-occurren t with nasal polyps 2405449776359 2 Active [address], [place], [address] [place] [facility], 9 09:13:32 Problem Notes None recorded. Medical Equipment None Reported. Allergies Allergen ID Allergen Name Allergen Category Reaction Reaction Severity Criticality Documentation Date Start Date Code Code System Note Provider Name and Address Organization Details Recorded Time 56132 aspirin medicatio n other Not available Not available 07/07/2019 1191 RxNorm Swell ing Fanny Verdin [facility], [place] [facility], 9 [...] Updated DateTime 0 175.26 cm 31.6 kg/m2 56723.7 7 g 68 /min 97 % 17 /min 98 [degF] 138/80 mm[Hg] yesica pendleton [place] [facility], 0 13:13:08 Date Recorded Body height Body mass index (BMI) Body weight Body temperature Systolic And Diastolic Provider Name and Address Organization Details Last Updated DateTime 07/07/2019 175.26 cm 31.6 kg/m2 53789.7 7 g 98.2 [degF] 130/70 mm[Hg] Subhash [...] N Hyperthyroidism N Tuberculosis N Cancer N Stroke N Diverticulitis N Stress N Hypothyroidism Y COPD N Depression N Allergies N Asthma N High Cholesterol N GERD/Reflux N Liver Disease N Heart Disease N Pulmonary Embolism N Fibromyalgia N Hypertension Y Osteoporosis N Kidney Disease N Past Encounters Encounter ID Performer Location Encounter Start Date Encounter Closed Date Diagnosis/Indication Diagnosis SNOMED-CT Code Diagnosis ICD10 Code Diagnosis IMO Codes Diagnosis Note [id number] Jayson saleem MD OFFICE [address] [place] [address] 07/07/2019 08:47:14 07/07/2019 10:20:34 Sinusitis co-occurrent with nasal polyps 2225798486 9102 J32.9 Patient with the syndrome of aspirin sensitivit y, nasal polyps, and asthma. His nasal polyps have been bothersome . He has had 3 sinus surgeries I think that Dupilumab would be quite beneficial in this setting. Will attempt to get him approved. Asthma 273032872 J45.40 [id number] Jayson saleem MD OFFICE [address] [place] [address] 09/14/2019 12:53:01 09/14/2019 13:53:30 Sinusitis co-occurrent with nasal polyps 1820530265 9102 J32.9 Asthma 160692293 J45.40 Persistent sinus symptoms with nasal polyps [...] Parry Member ID Guarantor Name 07/07/2019 2 [employer] - OPEN ACCESS 3 [id number] Mikael Rob [id number] Mikael Uriarte Darron 09/04/2019 1 MEDICARE B-[place]: WPS Mikael Rob [id number] Mikael Rob 07/07/2019 2 [facility] - DOS PRIOR TO 21 - [facility] BENEFITS PLAN [id number] Mikael Rob [id number] Mikael Rob 09/04/2019 [employer] - DMEPOS ASSIGNED (MEDICARE DME REGION B) Mikael Rob [id number] Mikael Rob Notes Date Note Type [...] some time. MD [address], [place], [address], [facility], 07/07/2019 10:26:56 [...] of breath. MD [address], [place], [address], [facility], 09/14/2019 14:58:54
--- NOTE | 2025-07-19 10:12 | PM.HPGS ---
History of Present Illness History of Present Illness Consent: Risks, benefits, and alternatives have been discussed and questions answered. Patient agrees to proceed with procedure. Chief complaint: benign prostate hypertrophy, lower tract symptoms, Narrative: Mikael Rob is a 70 year old male with PMHx of aortic valve regurgitation on Plavix (held per emergency registrar Dr. Meadows), CKD, DM, HTN, HLD as well as BPH/LUTS who presents today for TURP. Prior workup including functional and anatomic studies revealed evidence of an obstructed urinary stream as well as a 28 gram prostate gland with visually obstructing lateral lobe hyperplasia; he was also found to have a 20-Mold[place] bulbar urethral stricture. He denies any changes past his baseline and is ready for the procedure today. Review of Systems Review of Systems: Constitutional: No fevers or chills Eyes: No changes in vision HENT: No hearing loss Cardiovascular: No chest pain or palpitations Respiratory: No shortness of breath, cough, wheezing GI: No abdominal pain, nausea, or vomiting : No dysuria or difficulty urinating Heme: No easy bruising or bleeding Skin: No rash or itching MSK: No myalgias or joint pain Psych: No hallucinations Neuro: No lateralized numbness or tingling PMFSH Past Medical History Medical History Colon polyp Social History Social History Smoking status: Never smoker Alcohol intake: current Substance use: never Substance use type: does not use Living arrangements: with family Spiritual care concerns: No Meds Home Medications and Allergies Home Medications ?Medication ?Instructions ?Recorded ?Confirmed ?Type clopidogrel 75 mg tablet 75 mg PO QAM 08/26/23 07/19/25 History empagliflozin 10 mg tablet 10 mg PO QAM 08/26/23 07/19/25 History (Jardiance) ferrous sulfate 325 mg (65 mg 325 mg PO 2XW 08/26/23 07/19/25 History iron) tablet (Iron (ferrous sulfate)) fluticasone furoate 100 1 inh inhalation QPM 08/26/23 07/08/25 History mcg-vilanterol 25 mcg/dose inhalation powder (Breo Ellipta) insulin degludec 100 unit/mL (3 22 unit subcut QAM 08/26/23 07/08/25 History mL) subcutaneous pen levothyroxine 50 mcg tablet 50 mcg PO USEASDIRECTD 08/26/23 07/19/25 History loperamide 2 mg tablet 2 mg PO HS 08/26/23 07/19/25 History (Anti-Diarrheal (loperamide)) xoavmhrf-ievbqdgz-crkeu acid 400 1 tablet PO DAILY 08/26/23 07/19/25 History mcg-vit K 20 mcg-lycop 300 mcg tablet (One-A-Day Men's Multivitamin) primidone 50 mg tablet 100 mg PO QPM 08/26/23 07/19/25 History primidone 50 mg tablet 150 mg PO QAM 08/26/23 07/19/25 History topiramate 50 mg tablet 50 mg PO BID 08/26/23 07/19/25 History valsartan 320 mg tablet 320 mg PO DAILY 08/26/23 07/08/25 History allopurinol 300 mg tablet 300 mg PO DAILY 01/31/25 07/19/25 History rosuvastatin 20 mg tablet 20 mg PO QPM 01/31/25 07/19/25 History tadalafil 5 mg tablet 5 mg PO DAILY 01/31/25 07/08/25 History latanoprost 0.005 % eye drops 1 drp EACH EYE HS 07/08/25 07/08/25 History silodosin 4 mg capsule 4 mg PO HS 07/08/25 07/08/25 History valsartan 40 mg tablet 40 mg PO DAILY 07/08/25 07/19/25 History Allergies Allergy/AdvReac Type Severity Reaction Status Date / Time aspirin Allergy Severe Swelling Verified 07/19/25 10:01 of Lip/Tongue/Throat Exam Narrative: General: Alert, no acute distress Head: Normocephalic, atraumatic Eyes: Extraocular movements intact Neck: No JVD, trachea midline Respiratory: Symmetric chest rise, nonlabored breathing on room air CV: Normal rate, adequate peripheral perfusion Abdomen: Soft, nontender, nondistended : Circumcised phallus with orthotopic meatus. No penile or scrotal lesions. Testes descended bilaterally and nontender, normal testicular volume without masses or nodules. No hydrocele or varicocele. No inguinal hernia bilaterally Skin: Warm/dry Extremities: No peripheral edema, no cyanosis Neuro: No focal deficits Psych: Answers questions appropriately, appropriate mood Assessment and Plan Assessment and plan (1) BPH (benign prostatic hyperplasia): Code(s): N40.0 - Benign prostatic hyperplasia without lower urinary tract symptoms Status: Acute Assessment and Plan: 70yM with BPH/LUTS refractory to medical therapy - To OR for cystoscopy with TURP, urethral calibration and dilation, Gorman catheter placement - Risks, benefits, alternatives reviewed with the paitent. He expressed understanding and agreement to proceed - Plan to admit patient thereafter on CBI. Will consult hospitalist for medical management
--- NOTE | 2025-07-19 10:20 | WPDHPUPDATE1 ---
History and Physical Update Update Date/Time: 07/19/25 10:20 History and Physical has been reviewed, including an updated exam of the patient. There are NO changes in the patient's condition. Risks, benefits, and alternatives have been discussed and questions answered. Patient agrees to proceed with procedure.
--- NOTE | 2025-07-19 10:28 | WPDANESEPPF ---
Anes - Initial Pre Proc Eval Procedure: Operation Date: 07/19/25 10:30 Proposed Procedures p Cystoscopy, with Urethral Calibration, Urethral Dilatation - Toni Weathers MD s Trans Urethral Resection Prostate - Toni Weathers MD Date/Time: 07/19/25 10:28 Surgeon: Toni Weathers MD Pre Op Diagnosis: benign prostate hypertrophy, lower tract symptoms, Patient Data Age: 70 Gender: M Height: 1.78 m Weight: 77.15 kg Allergies Allergy/AdvReac Type Severity Reaction Status Date / Time aspirin Allergy Severe Swelling Verified 07/19/25 10:01 of Lip/Tongue/Throat Home Medications ?Medication ?Instructions ?Recorded ?Confirmed ?Type clopidogrel 75 mg tablet 75 mg PO QAM 08/26/23 07/19/25 History empagliflozin 10 mg tablet 10 mg PO QAM 08/26/23 07/19/25 History (Jardiance) ferrous sulfate 325 mg (65 mg 325 mg PO 2XW 08/26/23 07/19/25 History iron) tablet (Iron (ferrous sulfate)) fluticasone furoate 100 1 inh inhalation QPM 08/26/23 07/08/25 History mcg-vilanterol 25 mcg/dose inhalation powder (Breo Ellipta) insulin degludec 100 unit/mL (3 22 unit subcut QAM 08/26/23 07/08/25 History mL) subcutaneous pen levothyroxine 50 mcg tablet 50 mcg PO USEASDIRECTD 08/26/23 07/19/25 History loperamide 2 mg tablet 2 mg PO HS 08/26/23 07/19/25 History (Anti-Diarrheal (loperamide)) weclgioa-bnrwgjjy-mlsop acid 400 1 tablet PO DAILY 08/26/23 07/19/25 History mcg-vit K 20 mcg-lycop 300 mcg tablet (One-A-Day Men's Multivitamin) primidone 50 mg tablet 100 mg PO QPM 08/26/23 07/19/25 History primidone 50 mg tablet 150 mg PO QAM 08/26/23 07/19/25 History topiramate 50 mg tablet 50 mg PO BID 08/26/23 07/19/25 History valsartan 320 mg tablet 320 mg PO DAILY 08/26/23 07/08/25 History allopurinol 300 mg tablet 300 mg PO DAILY 01/31/25 07/19/25 History rosuvastatin 20 mg tablet 20 mg PO QPM 01/31/25 07/19/25 History tadalafil 5 mg tablet 5 mg PO DAILY 01/31/25 07/08/25 History latanoprost 0.005 % eye drops 1 drp EACH EYE HS 07/08/25 07/08/25 History silodosin 4 mg capsule 4 mg PO HS 07/08/25 07/08/25 History valsartan 40 mg tablet 40 mg PO DAILY 07/08/25 07/19/25 History Laboratory Tests 07/19/25 09:18 POC Capillary Glucose 73 mg/dl (65-105) Patient hx anesthesia problems: none Family hx anesthesia problems: none Results Review: All pre-operative results and documents have been reviewed as part of the pre-operative evaluation. [facility] Past Medical History Medical History Colon polyp Social History Social History Smoking status: Never smoker Alcohol intake: current Substance use: never Substance use type: does not use Living arrangements: with family Spiritual care concerns: No Anes - Eval Final PreProcedure Day of Procedure 07/19/25 10:28 Patient weight: normal Heart: regular rate and rhythm Lungs: clear to auscultation Airway: Mallampati scale class II Neurological: alert and oriented Last oral intake: >/= 8 hours ASA classification: III Emergent: no Anesthetic plan: proceed Anesthesia type and monitoring: general LMA and standard monitoring Results Review: All pre-operative results and documents have been reviewed as part of the pre-operative evaluation. Informed Consent: The patient's anesthetic plan and its attendant risks and benefits were discussed with the patient/family/POA. Questions were solicited and answers provided to the satisfaction of the patient/family/POA.
[2025-07-19] MEDS: LACTATED RINGERS 1,000 ML 30 ML IV CONT ×2 (10:49→12:05)
--- NOTE | 2025-07-19 11:36 | S_PTH ---
PATIENT: Mikael Rob LOC: [facility] U#:[id number] AGE/SX: 70/M ROOM: RE07/19/[address]: Toni Weathers MD : 1955 BED: DIS: 07/20/2025 SPEC #: [id number] RECD: 07/19/25 13:04 STATUS: TODD INGRAM #: [id number] JAVY: 07/19/25 11:[address]: Toni Weathers DEPT: [facility] Surgical RECD BY: Yesica Coleman ENTERED: 07/19/25 13:05 SP TYPE: Surgical OTHR DR: Rashmi Jackson, PAPj Tissues: A - Prostate Turp Procedures: Hematoxylin and Eosin Stain Gross and Microscopic Level 4
--- NOTE | 2025-07-19 12:01 | P.OP_ITS ---
Procedure Note - Detailed Date of Procedure 07/19/25 Pre-op Diagnosis benign prostate hypertrophy with lower urinary tract symptoms, bulbar urethral stricture Post-op Diagnosis Same Procedure Performed 1. Cystoscopy 2. Urethral calibration and dilation 3. Transurethral resection of prostate 4. Complex Gorman catheter placement Surgeon Toni Weathers MD Anesthesia General Findings 1. Patient had an approximately 20 Indonesian bulbar urethral stricture which was dilated with urethral dilators up to 24 Indonesian 2. Prostatic urethra demonstrated lateral lobe hypertrophy without median lobe 3. [place] cystoscopy revealed orthotopic ureteral orifices bilaterally with no suspicious lesions, tumors, active bleeding, or stones in the lower urinary tract 4. Successful transurethral resection of prostate with excellent hemostasis at the conclusion of the case 5. Successful placement of [address] hematuria catheter with 30 mL sterile water in the balloon hooked to gravity drainage on normal saline continuous bladder irrigation Description of Procedure After informed consent was obtained, the patient was brought back to the operating theatre and placed in the supine position on the operating table. Pre- operative antibiotics were confirmed to have been administered. Anesthesia was induced. The patient was moved into the dorsal lithotomy position and prepped and draped in the standard sterile fashion for an endoscopic case. All pressure points were padded. Bilateral sequential compression devices were on and noted to be functioning. A formal timeout was performed with Dr. Weathers in attendance to confirm the correct patient, site/laterality, and procedure and all were in agreement to proceed. To begin with, I atraumatically advanced a lubricated 22-Indonesian rigid cystoscope transurethrally until I encountered an approximately 20 Indonesian bulbar urethral stricture which had not previously noted during office cystoscopy. I passed a straight glidewire through this stricture into the bladder and then was able to gently dilate and navigate the cystoscope past the stricture and into the bladder. Please see above findings for remainder of cystourethroscopic findings. I then kept the Glidewire in the patient's bladder and removed the cystoscope. Next, I advanced the urethral dilators in 2 Indonesian increments from 20 Indonesian to 24 Indonesian over top of the Glidewire to dilate the bulbar stricture in order to accommodate the continuous-flow resectoscope. I then advanced the monopolar continuous-flow resectoscope transurethrally past the stricture and into the bladder. I then retracted the scope at the level of the prostatic ure thra and began performing transurethral resection of prostate, beginning with the floor of the prostate, moving to the right lateral lobe followed by the left lateral lobe and lastly the apical tissue. I then flushed and irrigated out the prostate chips were sent off as a specimen for pathologic analysis. Throughout the procedure I periodically survey the ureteral orifices to ensure that they we re not injure violated. I then turned my attention to hemostasis. Using the cautery setting I cauterized along the prostate resection bed. I then cycled the patient's bladder multiple times and then retracted the scope at the prostatic urethra and with the irrigation off I did not note any notable bleeding. I then replaced the Glidewire through the resectoscope and removed the resectoscope. Over top of the Glidewire I passed a [address] hematuria coude catheter and inflated 30 mL of sterile water in the balloon. The balloon was then seated at the bladder neck and I manually flushed and irrigated the patient's catheter with return of clear slightly pink tinged efflux without clots. The catheter was then connected to normal saline continuous bladder irrigation as well as a gravity drainage bag. This essentially conclude the case. The patient tolerated the procedure well and there were no immediate complications. He was taken to the recovery in stable condition. At the conclusion of the case all sponge, instrument, and sharp counts were correct x 2. Disposition: The patient will be monitored in the PACU and then be transferred to the vieyra after clearing PACU protocol, where he will continue on normal saline continuous bladder irrigation. Over the course of his hospitalization will plan to wean his CBI. The hospitalist team will be consulted for medical management. We will plan to discharge the patient home with this Gorman catheter in place in order to allow for urethral healing given his urethral calibration and dilation for his bulbar stricture. He will follow-up in the Urology Clinic next week for a voiding trial. The patient's was provided with a postoperative obtain all questions were answered to her satisfaction at the conclusion of our disc ussion. Estimated Blood Loss 25
[2025-07-19] MEDS: fentaNYL CITRATE INJ (*CRX) 100 MCG/2 ML VIAL 25 MCG IV PUSH ×4 (12:29→12:44)
[2025-07-19] MEDS: DEXTROSE 5%/LACTATED RINGERS 1,000 ML 125 ML IV CONT (13:58)
--- NOTE | 2025-07-19 14:21 | ADMGEN ---
This patient, Mikael Rob, was admitted to 3 [facility] Surg Room 330-01. Patient/family oriented to hospital policies and general routines including ID bracelet, bed and alarms, visiting hours, pain management, procedures, bathroom and other care routines, personal items, smoking policy, room service/diet, and visiting hours. Information on how to activate the Rapid Response Team has been discussed. Patient/Family are encouraged to report perceived risks to care and to ask questions if they do not understand what they are told or what they should do. received report from sebastien.
--- NOTE | 2025-07-19 14:28 | PM.IMCN2 ---
Assessment and Plan Assessment and plan (1) BPH (benign prostatic hyperplasia): Code(s): N40.0 - Benign prostatic hyperplasia without lower urinary tract symptoms Status: Acute (2) Diabetes type 2: Code(s): E11.9 - Type 2 diabetes mellitus without complications Status: Acute (3) Hypertension: Code(s): I10 - Essential (primary) hypertension Status: Acute (4) Hyperlipidemia: Code(s): E78.5 - Hyperlipidemia, unspecified Status: Acute (5) Essential tremor: Code(s): G25.0 - Essential tremor Status: Acute (6) Asthma: Code(s): J45.909 - Unspecified asthma, uncomplicated Status: Acute Plan Status post TURP for BPH currently on Gorman catheter with pinkish urine. On CBI which will be continued as planned by urologist. Urethral stricture status post urethral dilatation CKD stage 3 baseline creatinine mid 1s. Will continue to monitor. Recheck labs in a.m. Hypertension on valsartan Type 2 diabetes mellitus last A1c 7.1. History of diabetic retinopathy. Continue SSI. On Tresiba and Jardiance at home. Hyperlipidemia on rosuvastatin Hypothyroidism on levothyroxine Asthma well controlled Essential tremor on primidone and Topamax Aortic valve replacement 2017 Hydrocephalus status post shunt placement DVT prophylaxis SCDs Code status DNR HPI Date of Consult Consult date: 07/19/25 Requesting Physician: Toni Weathers MD Primary Care Provider: Rashmi Jackson, PA-C Consult Narrative Narrative: Mikael Rob is a 70 year old male who presents for TURP which was performed earlier today. Hospitalist team consulted postoperatively for medical management. Patient has a history of aortic valve regurgitation on Plavix chronic kidney disease type 2 diabetes mellitus hypertension hyperlipidemia. He underwent cystoscopy urethral dilatation and TURP with complex Gorman catheter placement. Review of Systems Review of Systems: - CONSTITUTIONAL: Denies weight loss, fever and chills. - HEENT: Denies changes in vision and hearing - RESPIRATORY: Denies SOB and cough. - CV: Denies palpitations and CP. - GI: Denies abdominal pain, nausea, vomiting and diarrhea. - : Denies dysuria and urinary frequency. - MSK: Denies myalgia and joint pain. - SKIN: Denies rash and pruritus. - NEUROLOGICAL: Denies headache and syncope. - PSYCHIATRIC: Denies recent changes in mood. Denies anxiety and depression. [facility] Past Medical History Medical History Colon polyp Social History Social History Smoking status: Never smoker Alcohol intake: former Substance use: never Substance use type: does not use Lack of Transportation: No Lack of Food: Never True Current Housing: I Have Housing Concerned About Future Housing: No Difficulty Paying Gas/Electric Bills: No Difficulty Paying for Meds: No Currently Unemployed: No Education: Master's Degree or Higher Difficulty w/ Childcare or Family Care: No Living arrangements: with family Spiritual care concerns: No Meds Home Medications and Allergies Home Medications ?Medication ?Instructions ?Recorded ?Confirmed ?Type clopidogrel 75 mg tablet 75 mg PO QAM 08/26/23 07/19/25 History Held on 07/19/25. Instructions: Resume on 07/22/25. empagliflozin 10 mg tablet 10 mg PO QAM 08/26/23 07/19/25 History (Jardiance) ferrous sulfate 325 mg (65 mg 325 mg PO 2XW 08/26/23 07/19/25 History iron) tablet (Iron (ferrous sulfate)) fluticasone furoate 100 1 inh inhalation QPM 08/26/23 07/08/25 History mcg-vilanterol 25 mcg/dose inhalation powder (Breo Ellipta) insulin degludec 100 unit/mL (3 22 unit subcut QAM 08/26/23 07/08/25 History mL) subcutaneous pen levothyroxine 50 mcg tablet 50 mcg PO USEASDIRECTD 08/26/23 07/19/25 History loperamide 2 mg tablet 2 mg PO HS 08/26/23 07/19/25 History (Anti-Diarrheal (loperamide)) tzvjpljv-zduladay-scush acid 400 1 tablet PO DAILY 08/26/23 07/19/25 History mcg-vit K 20 mcg-lycop 300 mcg tablet (One-A-Day Men's Multivitamin) primidone 50 mg tablet 100 mg PO QPM 08/26/23 07/19/25 History primidone 50 mg tablet 150 mg PO QAM 08/26/23 07/19/25 History topiramate 50 mg tablet 50 mg PO BID 08/26/23 07/19/25 History valsartan 320 mg tablet 320 mg PO DAILY 08/26/23 07/19/25 History allopurinol 300 mg tablet 300 mg PO DAILY 01/31/25 07/19/25 History rosuvastatin 20 mg tablet 20 mg PO QPM 01/31/25 07/19/25 History tadalafil 5 mg tablet 5 mg PO DAILY 01/31/25 07/08/25 History latanoprost 0.005 % eye drops 1 drp EACH EYE HS 07/08/25 07/08/25 History silodosin 4 mg capsule 4 mg PO HS 07/08/25 07/08/25 History valsartan 40 mg tablet 40 mg PO DAILY 07/08/25 07/19/25 History polyethylene glycol 3350 17 gram 17 g PO DAILY 14 days #14 ea 07/19/25 Rx oral powder packet (Miralax) Allergies Allergy/AdvReac Type Severity Reaction Status Date / Time aspirin Allergy Severe Swelling Verified 07/19/25 14:11 of Lip/Tongue/Throat Vital Signs Vital Signs - 24 hr 07/19/25 12:05 07/19/25 12:20 07/19/25 12:35 Temperature 97.5 F L Pulse Rate 74 73 79 Respiratory Rate 11 L 12 12 Blood Pressure 105/53 L 131/69 140/70 Pulse Oximetry 98 98 98 Oxygen Delivery Simple Face Mask Simple Face Mask Simple Face Mask Oxygen Flow Rate 6 6 6 07/19/25 12:40 07/19/25 12:50 07/19/25 13:05 Temperature Pulse Rate 84 88 Respiratory Rate 12 14 Blood Pressure 132/64 130/63 Pulse Oximetry 93 94 Oxygen Delivery Room Air Room Air Room Air Oxygen Flow Rate 07/19/25 13:20 07/19/25 13:55 Temperature 97.8 F 97.5 F L Pulse Rate 85 86 Respiratory Rate 12 16 Blood Pressure 132/68 144/73 H Pulse Oximetry 95 99 Oxygen Delivery Room Air Oxygen Flow Rate Exam Narrative: GENERAL: The patient is well developed, not in acute distress HEENT: Nonicteric sclerae, PERRLA, EOMI. Oropharynx clear. Moist mucous membranes. Conjunctivae appear well perfused. CHEST: Chest wall is nontender. HEART: Regular rate and rhythm without murmur, rubs, or gallops LUNGS: Clear to auscultation bilaterally. no respiratory distress ABDOMEN: Soft, positive bowel sounds, non-tender, no organomegaly. SKIN: No rash, no excessive bruising, petechiae, or purpura. NEUROLOGIC: Cranial nerves II-XII intact, alert and oriented x 3, no gross motor deficits EXTREMITIES: no edema, cyanosis or clubbing Gorman catheter in-situ with pinkish color urine in bag
[2025-07-19] MEDS: TOPIRAMATE 25 MG TABLET 50 MG PO (16:29)
[2025-07-19] MEDS: HYDROcodone/acetaminophen (*CRX) 5-325 MG TABLET 1 TAB PO (16:29)
[2025-07-19] MEDS: PRIMIDONE 50 MG TABLET 100 MG PO (18:43)
[2025-07-19] MEDS: ROSUVASTATIN 20 MG TABLET PO (18:43)
[2025-07-19] MEDS: DEXTROSE 5%/LACTATED RINGERS 1,000 ML 50 ML IV CONT (23:59)
[2025-07-20 01:55] VITALS: BP 117/56; PULSE 89; RESP 16; TEMP 36.1; O2SAT 98
[2025-07-20 04:55] VITALS: BP 127/62; PULSE 86; RESP 17; TEMP 36.1; O2SAT 97
[2025-07-20] MEDS: LEVOTHYROXINE SODIUM 75 MCG TABLET PO (05:40)
[2025-07-20 06:51] LABS: Hematocrit 37.7 % (42.0-52.0); Hemoglobin 11.9 g/dL (14.0-18.0); Immature Granulocyte Percent A 0.5 % (0-0.5); Lymphocytes Absolute Auto 1.25 K/mm3 (0.9-3.2); Mean Corpuscular HGB Conc 31.6 g/dl (32-36); Mean Corpuscular Hemoglobin 31.5 pg (26-34); Mean Corpuscular Volume 99.7 fl (80-100); Nucleated Red Blood Cells Absolute Auto 0.000 K/mm3 (0.0-0.012); Nucleated Red Blood Cells Perc 0.0 % (0.0-0.2); Platelet Count Result 179 k/mm3 (150-375); Red Blood Count 3.78 M/mm3 (4.6-6.20); White Blood Count 10.1 K/mm3 (4.5-10.0)
[2025-07-20 07:03] LABS: Alanine Aminotransferase 25 U/L (6-50); Albumin Level 3.4 g/dL (3.5-5.1); Alkaline Phosphatase 100 U/L (38-126); Anion Gap 8 mmol/L (4-12); Aspartate Amino Transferase 27 U/L (17-59); Bilirubin,Total 0.4 mg/dL (0.2-1.3); Blood Urea Nitrogen 37 mg/dL (9-20); Calcium 8.7 mg/dL (8.4-10.2); Carbon Dioxide 23 mmol/L (22-30); Chloride 109 mmol/L (98-107); Estimated CRCL calculation 41 ml/min; Estimated Glomerular Filt Rate 43; Glucose 90 mg/dL (65-110); Magnesium 1.9 mg/dL (1.6-2.3); Potassium 4.1 mmol/L (3.4-5.0); Sodium 140 mmol/L (137-145); Total Protein 6.1 g/dL (6.3-8.2)
[2025-07-20] MEDS: FLUTICASONE/SALMETEROL 115-21 MCG INHALER 1 PUFF 2 PUFF INHALATION (07:48)
[2025-07-20 07:51] VITALS: PULSE 95; RESP 15
[2025-07-20] MEDS: TOPIRAMATE 25 MG TABLET 50 MG PO (08:23)
[2025-07-20] MEDS: PRIMIDONE 50 MG TABLET 150 MG PO (08:23)
[2025-07-20 09:09] VITALS: BP 122/56; PULSE 93; RESP 16; TEMP 36.5; O2SAT 100
[2025-07-20] MEDS: DEXTROSE 5%/LACTATED RINGERS 1,000 ML 50 ML IV CONT (09:17)
[2025-07-20] MEDS: VALSARTAN 40 MG TABLET PO (09:18)
--- NOTE | 2025-07-20 10:56 | P.PNUR_ITS ---
Progress Note: A&P Assessment and Plan (1) BPH (benign prostatic hyperplasia): Code(s): N40.0 - Benign prostatic hyperplasia without lower urinary tract symptoms Status: Acute Assessment and Plan: postop day 1. Status post TURP he is doing well with urine clear on CBI which has been clamped. He will go home today with the catheter in place given history of stricture, plan for voiding trial in the office with Dr. Weathers on Tuesday Subjective Subjective Date/Time Seen: 07/20/25 10:56 Interval history: no acute issues overnight tolerating diet no pain urine clear with CBI clamped Review of Systems Review of Systems: All systems reviewed & are unremarkable except as noted in HPI and below Constitutional: Constitutional: Reports no additional constitutional complaints Exam Const: General: comfortable and no acute distress HENMT: Mouth: Yes moist mucous membranes Eyes: General: appearance normal, both eyes and all related structures Sclera: sclerae normal Resp: Effort & Inspection: normal respiratory effort Cardio: Rate: regular rate GI: Inspection: non-distended GI Palp: Yes Soft to palpation, No Tenderness to palpation present (GI) and No Guarding due to palpation present (GI) Urinary Catheter: Urinary Catheter: patent and draining and urine clear Neuro: Speech: normal speech Motor exam (neuro): 5/5 motor strength present throughout Objective Data Vital Signs Vital Signs: Vital Signs - 24 hr 07/19/25 12:05 07/19/25 12:20 07/19/25 12:35 Temperature 36.4 C L Pulse Rate 74 73 79 Respiratory Rate 11 L 12 12 Blood Pressure 105/53 L 131/69 140/70 Pulse Oximetry 98 98 98 Oxygen Delivery Simple Face Mask Simple Face Mask Simple Face Mask Oxygen Flow Rate 6 6 6 07/19/25 12:40 07/19/25 12:50 07/19/25 13:05 Temperature Pulse Rate 84 88 Respiratory Rate 12 14 Blood Pressure 132/64 130/63 Pulse Oximetry 93 94 Oxygen Delivery Room Air Room Air Room Air Oxygen Flow Rate 07/19/25 13:20 07/19/25 13:55 07/19/25 14:10 Temperature 36.6 C 36.4 C L 36.4 C L Pulse Rate 85 86 82 Respiratory Rate 12 16 14 Blood Pressure 132/68 144/73 H 151/81 H Pulse Oximetry 95 99 99 Oxygen Delivery Room Air Oxygen Flow Rate 07/19/25 14:25 07/19/25 14:52 07/19/25 17:38 Temperature 36.6 C 36.2 C L Pulse Rate 84 107 H Respiratory Rate 14 14 Blood Pressure 158/87 H 162/75 H Pulse Oximetry 99 99 Oxygen Delivery Room Air Oxygen Flow Rate 07/19/25 20:10 07/20/25 01:55 07/20/25 04:55 Temperature 35.9 C L 36.1 C L 36.1 C L Pulse Rate 102 H 89 86 Respiratory Rate 16 16 17 Blood Pressure 158/94 H 117/56 L 127/62 Pulse Oximetry 99 98 97 Oxygen Delivery Oxygen Flow Rate 07/20/25 07:51 07/20/25 08:00 07/20/25 09:09 Temperature 36.5 C Pulse Rate 95 93 Respiratory Rate 15 16 Blood Pressure 122/56 L Pulse Oximetry 100 Oxygen Delivery Room Air Oxygen Flow Rate Intake/Output Intake/Output: Intake & Output 07/17/25 07/18/25 07/19/25 07/20/25 23:59 23:59 23:59 23:59 Intake Total 1690 705 Output Total [id number] [id number] [facility] [id number] [id number] Meds/Results Medications: Active Medications Generic Name Dose Route Start Last Admin Trade Name Freq PRN Reason Stop Dose Admin Acetaminophen 650 mg 07/19/25 11:53 Acetaminophen 325 Mg Tablet PO Q6H PRN Mild Pain (1-3) or Fever Hydrocodone Bitart/Acetaminophen 1 tab 07/19/25 11:53 07/19/25 16:29 Hydrocodone/Acetaminophen (*Crx) 5-325 Mg Tablet PO 1 tab Q4H PRN Administration Pain Rated 4-7 Allopurinol 300 mg 07/20/25 09:00 07/20/25 08:23 Allopurinol 300 Mg Tablet PO 300 mg DAILY GIANLUCA Administration Dextrose 12.5 gm 07/19/25 14:43 Dextrose 50% 25 Gm/50 Ml Syringe IV PUSH PRN PRN Hypoglycemia Protocol Docusate Sodium 100 mg 07/19/25 17:00 Docusate Sodium 100 Mg Capsule PO BID PRN CONSTIPATION Glucagon 1 mg 07/19/25 14:43 Glucagon For Inj 1 Mg Vial IM PRN PRN Hypoglycemia Protocol Glucose 15 gm 07/19/25 14:43 Glucose Oral Gel 15 Gm Of Glucse In 37.5 Gm Tube PO PRN PRN Hypoglycemia Protocol Hyoscyamine 0.125 mg 07/19/25 11:53 Hyoscyamine Sulfate 0.125 Mg Tablet SUBLINGUAL Q6H PRN Bladder Spasm Dextrose/Lactated Ringer's 1,000 mls @ 125 mls/hr 07/19/25 11:55 07/20/25 09:17 Dextrose 5%/Lactated Ringers IV CONT 50 mls/hr .Q8H GAINLUCA Administration Dextrose 1,000 mls @ 100 mls/hr 07/19/25 14:43 Dextrose 5% 1,000 Ml IVPB PRN PRN Hypoglycemia Protocol Insulin Aspart 2 - 5 units 07/19/25 17:00 07/20/25 09:09 Insulin Aspart (*Bkc) 100 Units/Ml SUB-Q Not Given TIDWM [facility] Protocol Levothyroxine Sodium 50 mcg 07/22/25 06:30 Levothyroxine Sodium 50 Mcg Tablet PO [id number] [facility] Levothyroxine Sodium 75 mcg 07/20/25 06:30 07/20/25 05:40 Levothyroxine Sodium 75 Mcg Tablet PO 75 mcg [id number]@0630 [facility] Administration Melatonin 3 mg 07/19/25 11:53 Melatonin 3 Mg Tablet PO HS PRN Insomnia Morphine Sulfate 2 mg 07/19/25 11:53 Morphine Sulfate (*Crx) 4 Mg/Ml Inj IV PUSH Q2H PRN Pain Rated 8-10 Naloxone HCl 0.1 mg 07/19/25 11:53 Naloxone Hcl 0.4 Mg/Ml Vial IV PUSH Q2M PRN Opiate Reversal Ondansetron HCl 4 mg 07/19/25 11:53 Ondansetron Inj 4 Mg/2 Ml Vial IV PUSH Q12H PRN Nausea And Vomiting Primidone 100 mg 07/19/25 18:00 07/19/25 18:43 Primidone 50 Mg Tablet PO 100 mg QPM GIANLUCA Administration Primidone 150 mg 07/20/25 09:00 07/20/25 08:23 Primidone 50 Mg Tablet PO 150 mg QAM GIANLUCA Administration Rosuvastatin Calcium 20 mg 07/19/25 18:00 07/19/25 18:43 Rosuvastatin 20 Mg Tablet PO 20 mg QPM GIANLUCA Administration Fluticasone/Salmeterol 2 puff 07/19/25 20:00 07/20/25 07:48 Fluticasone/Salmeterol 115-21 Mcg Inhaler 1 Puff INHALATION 2 puff Q12HRT GIANLUCA Administration Topiramate 50 mg 07/19/25 17:00 07/20/25 08:23 Topiramate 25 Mg Tablet PO 50 mg BID GIANLUCA Administration Valsartan 40 mg 07/20/25 09:00 07/20/25 09:18 Valsartan 40 Mg Tablet PO 40 mg DAILY GIANLUCA Administration Labs Labs: Laboratory Results - last 24 hr 07/19/25 07/19/25 07/19/25 12:11 16:26 20:12 WBC RBC Hgb Hct MCV MCH MCHC RDW Plt Count MPV Immature Gran % (Auto) Neut % (Auto) Lymph % (Auto) [place] % (Auto) Eos % (Auto) Baso % (Auto) Lymph # (Auto) [place] # (Auto) Eos # (Auto) Baso # (Auto) Abs Immat Gran (auto) Absolute Neuts (auto) Absolute Nucleated RBC Nucleated RBC % Sodium Potassium Chloride Carbon Dioxide Anion Gap BUN Creatinine Estim Creat Clear Calc Estimated GFR Glucose POC Capillary Glucose 65 120 H 156 H Calcium Magnesium Total Bilirubin AST ALT Alkaline Phosphatase Total Protein Albumin 07/20/25 07/20/25 06:19 07:51 WBC 10.1 H RBC 3.78 L Hgb 11.9 L Hct 37.7 L MCV 99.7 MCH 31.5 MCHC 31.6 L RDW 13.2 Plt Count 179 MPV 10.3 Immature Gran % (Auto) 0.5 Neut % (Auto) 77.7 H Lymph % (Auto) 12.4 L [place] % (Auto) 7.9 Eos % (Auto) 0.8 Baso % (Auto) 0.7 Lymph # (Auto) 1.25 [place] # (Auto) 0.8 H Eos # (Auto) 0.1 Baso # (Auto) 0.1 Abs Immat Gran (auto) 0.05 H Absolute Neuts (auto) 7.8 H Absolute Nucleated RBC 0.000 Nucleated RBC % 0.0 Sodium 140 Potassium 4.1 Chloride 109 H Carbon Dioxide 23 Anion Gap 8 BUN 37 H Creatinine 1.62 H Estim Creat Clear Calc 41 Estimated GFR 43 L Glucose 90 POC Capillary Glucose 100 Calcium 8.7 Magnesium 1.9 Total Bilirubin 0.4 AST 27 ALT 25 Alkaline Phosphatase 100 Total Protein 6.1 L Albumin 3.4 L
== END 2025-07-20 11:49 | disposition home or self-care (01) ==
LOC: ANHSURGERY 12:14 → ANH3MEDSUR 14:48
PROVIDERS: Internal Medicine; PCP Physician Assistant; Visit Provider Urology
PROC: 0T7D8ZZ Dilation of Urethra, Via Natural or Artificial Opening Endoscopic (ICD-10-PCS; CPT 52281; principal; 2025-07-19 10:30)
PROC: 0VT08ZZ Resection of Prostate, Via Natural or Artificial Opening Endoscopic (ICD-10-PCS; CPT 52601; 2025-07-19 10:30)
DX: N40.1 Benign prostatic hyperplasia with lower urinary tract symptoms (principal); N13.8 Other obstructive and reflux uropathy; N35.912 Unspecified bulbous urethral stricture, male; N41.1 Chronic prostatitis; N34.2 Other urethritis; I13.0 Hypertensive heart and chronic kidney disease with heart failure and stage 1 through stage 4 chronic kidney disease, or unspecified chronic kidney disease; E11.22 Type 2 diabetes mellitus with diabetic chronic kidney disease; N18.30 Chronic kidney disease, stage 3 unspecified; E78.5 Hyperlipidemia, unspecified; G25.0 Essential tremor; J45.909 Unspecified asthma, uncomplicated; E03.9 Hypothyroidism, unspecified; Z95.2 Presence of prosthetic heart valve; G91.9 Hydrocephalus, unspecified; Z98.2 Presence of cerebrospinal fluid drainage device
CPT/HCPCS: 52601; 36415; 80053; 82948; 83735; 85025; 88305; 94640; A9270; C1757; C1769; J1100; J2250; J2371; J2405; J2704; J3010; J7120; J7121

== ENCOUNTER 2025-07-23 18:28 | Emergency (ER) | payer MEDICARE, SELFPAY ==
[2025-07-23 18:54] VITALS: BP 177/87; PULSE 91; RESP 16; TEMP 36.8; O2SAT 100
[2025-07-23 18:55] LABS: EDUAAPPEAR Cloudy; EDUABILI Negative (Negative); EDUABLOOD 3+ (Negative); EDUACOLOR1 Yellow; EDUAGLUCOSE 3+ (Negative); EDUAKETONE Negative (Negative); EDUALEUKO Negative (Negative); EDUANITRATE Negative (Negative); EDUAPH 7.0; EDUAPROTEIN 3+ (Negative); EDUASPGRAVITY 1.020; EDUAUROBILI 0.2
--- NOTE | 2025-07-23 19:16 | ED.MALEGU ---
HPI - Male Genitourinary General Chief complaint: Urogenital-Male Stated complaint: Uti Symptoms Time Seen by Provider: 07/23/25 19:00 Source: patient and RN notes reviewed Mode of arrival: ambulatory Limitations: no limitations History of Present Illness HPI Narrative: 70-year-old male patient presents to the [facility] complaining of dysuria started this afternoon. Patient recently had a TURP procedure was discharged this morning had a catheter placed that was removed this morning as well. Since then the patient has reported burning with urination. Patient denies any frequency, hesitancy, abdominal pain, back pain, flank pain, nausea vomiting, breathing problems, fevers, eczema chills, or any other symptoms. Patient reports a history of diabetes, is insulin dependent. Related Data Home Medications ?Medication ?Instructions ?Recorded ?Confirmed ?Last Taken ?Type clopidogrel 75 mg tablet 75 mg PO QAM 08/26/23 07/19/25 07/13/25 History Held on 07/19/25. Instructions: Resume on 07/22/25. empagliflozin 10 mg tablet 10 mg PO QAM 08/26/23 07/19/25 07/18/25 History (Jardiance) ferrous sulfate 325 mg (65 mg 325 mg PO 2XW 08/26/23 07/19/25 07/15/25 History iron) tablet (Iron (ferrous sulfate)) fluticasone furoate 100 1 inh inhalation QPM 08/26/23 07/08/25 09/08/23 History mcg-vilanterol 25 mcg/dose inhalation powder (Breo Ellipta) insulin degludec 100 unit/mL (3 22 unit subcut QAM 08/26/23 07/08/25 09/08/23 History mL) subcutaneous pen levothyroxine 50 mcg tablet 50 mcg PO USEASDIRECTD 08/26/23 07/19/25 07/19/25 History loperamide 2 mg tablet 2 mg PO HS 08/26/23 07/19/25 07/18/25 History (Anti-Diarrheal (loperamide)) jumvqvmx-wgccadzl-ekjxp acid 400 1 tablet PO DAILY 08/26/23 07/19/25 07/15/25 History mcg-vit K 20 mcg-lycop 300 mcg tablet (One-A-Day Men's Multivitamin) primidone 50 mg tablet 100 mg PO QPM 08/26/23 07/19/25 07/18/25 History primidone 50 mg tablet 150 mg PO QAM 08/26/23 07/19/25 07/18/25 History topiramate 50 mg tablet 50 mg PO BID 08/26/23 07/19/25 07/19/25 History valsartan 320 mg tablet 320 mg PO DAILY 08/26/23 07/19/25 09/08/23 History allopurinol 300 mg tablet 300 mg PO DAILY 01/31/25 07/19/25 07/18/25 History rosuvastatin 20 mg tablet 20 mg PO QPM 01/31/25 07/19/25 07/18/25 History tadalafil 5 mg tablet 5 mg PO DAILY 01/31/25 07/08/25 Unknown History latanoprost 0.005 % eye drops 1 drp EACH EYE HS 07/08/25 07/08/25 Unknown History silodosin 4 mg capsule 4 mg PO HS 07/08/25 07/08/25 Unknown History valsartan 40 mg tablet 40 mg PO DAILY 07/08/25 07/19/25 07/18/25 History Allergies Allergy/AdvReac Type Severity Reaction Status Date / Time aspirin Allergy Severe Swelling Verified 07/19/25 14:11 of Lip/Tongue/Throat Review of Systems Review of Systems: CONSTITUTIONAL: Denies fever, chills, body aches, or sweats. EYES: Denies visual changes, redness, or discharge. ENT: Denies rhinorrhea, congestion, sore throat, or otalgia. CARDIOVASCULAR: Denies chest pain, palpitations, or edema. RESPIRATORY: Denies cough or dyspnea. GASTROINTESTINAL: Denies abdominal pain, nausea, vomiting, or diarrhea. GENITOURINARY: Positive for dysuria. Negative for frequency, hesitancy, hematuria. SKIN: Denies rash or itching. MUSCULOSKELETAL: Denies back pain, joint pain, or myalgia. NEUROLOGIC: Denies headache, numbness, or weakness. PSYCHIATRIC: Denies anxiety or depression. All other systems reviewed are negative, except as documented in HPI. [facility] Past Medical History Medical History Colon polyp Social History Social History Smoking status: Never smoker Alcohol intake: former Substance use: never Substance use type: does not use Lack of Transportation: No Lack of Food: Never True Current Housing: I Have Housing Concerned About Future Housing: No Difficulty Paying Gas/Electric Bills: No Difficulty Paying for Meds: No Currently Unemployed: No Education: Master's Degree or Higher Difficulty w/ Childcare or Family Care: No Living arrangements: with family Spiritual care concerns: No Comments At the time of my signature, I reviewed and agree with the nursing past medical, surgical, social, and family history. There is no relevant family history pertinent to the patient complaint. Exam Narrative: GENERAL: This is a well-nourished, well-developed adult, in no apparent distress. They are non ill-appearing, nontoxic appearing. HEAD: normocephalic, atraumatic. EYES: Sclera clear/white. Vision is grossly intact. Conjunctiva normal bilaterally. Extraocular movements intact. EARS: External ears normal,Hearing grossly intact. NOSE: External nose normal THROAT: Mucous membranes moist NECK: Normal range of motion CARDIOVASCULAR: Regular rate and rhythm. Normal S1-S2. No clicks, gallops, rubs, murmurs. RESPIRATORY: Respiratory rate normal, respiratory effort nonlabored, no respiratory distress. Lung sounds clear to auscultation throughout. Lung sounds equal bilaterally. No adventitious lung sounds. GASTROINTESTINAL: Abdomen soft, flat, non-tender, nondistended. Bowel sounds are active. No hepato-splenomegaly, or palpable masses. No guarding. No rebound tenderness. SKIN: warm, Dry, intact with no suspicious lesions or rash, good texture and turgor. NEURO: awake, alert, and oriented to person, place and time. There were no obvious focal neurologic abnormalities. EXTREMITIES: No joint tenderness, effusion, or edema noted. BACK: Nontender without deformity. No CVA tenderness. Course Course Level of Care: Express Care Visit Vital Signs Vital signs: Vital Signs Temperature 98.3 F 07/23/25 18:54 Pulse Rate 91 07/23/25 18:54 Respiratory Rate 16 07/23/25 18:54 Blood Pressure 177/87 H 07/23/25 18:54 Pulse Oximetry 100 07/23/25 18:54 Temperature 98.3 F 07/23/25 18:54 Pulse Rate 91 07/23/25 18:54 Respiratory Rate 16 07/23/25 18:54 Blood Pressure 177/87 H 07/23/25 18:54 Pulse Oximetry 100 07/23/25 18:54 [facility] Narrative Medical decision making narrative: Urine dipstick shows evidence of 3+ blood, protein, glucose in the urine. No leukocytes or nitrates. Urine cultures pending. Patient is report dysuria likely related to the [place] catheter was placed. However patient is diabetic with a glucose present is urine increases risk for urinary tract infection, unable to perform a microscopic urinalysis to assess her bacteria. Through shared decision making with patient patient like to go ahead and prophylactically start treatment for urinary tract infection. Will Treat patient with Augmentin. Discussed physical exam findings. Advised supportive measures and signs/symptoms to go to the ER. Pt is appropriate for outpt treatment and f/u. Differential Diagnosis Differential Diagnosis: Urinary tract infection, cystitis, pyelonephritis, dysuria, dysuria after catheter placement Lab Data [facility] Lab Attestation statement: I personally reviewed the patient's lab results. Labs: Lab Results 07/23/25 Range/Units 18:53 POC Urine Color Yellow POC Urine Clarity Cloudy POC Urine pH 7.0 POC Ur Specif [place] 1.020 POC Urine Protein 3+ (Negative) POC Ur Glucose (UA) 3+ (Negative) POC Urine Ketones Negative (Negative) POC Urine Blood 3+ (Negative) POC Urine Nitrite Negative (Negative) POC Urine Bilirubin Negative (Negative) POC Urine Urobilinogen 0.2 POC U Leukocyte Esteras Negative (Negative) Discharge Plan Discharge Clinical Impression: Dysuria Patient Disposition: Home Condition: Stable Instructions: Antibiotic Form, Dysuria (ED) Additional Instructions: Take the antibiotic as prescribed The urine will be sent of for a culture to identify what type of bacteria is causing your infection. If the culture shows that the antibiotic will not get rid of your infection, you will be notified and a new antibiotic will be called in for you. Increase water intake you will need to follow up with your PCP 3-5 days. Go to the ER for any worsening symptoms, abdominal pain, fevers, nausea, vomiting, or any other concerns Patient Language: Danish Prescriptions: New amoxicillin-pot clavulanate 875-125 mg tablet 1 tablet PO Q12H 7 Days Qty: 14 0RF No Action allopurinol 300 mg tablet 300 mg PO DAILY tadalafil 5 mg tablet 5 mg PO DAILY primidone 50 mg tablet 100 mg PO QPM primidone 50 mg tablet 150 mg PO QAM loperamide [Anti-Diarrheal (loperamide)] 2 mg Tablet 2 mg PO HS clopidogrel 75 mg tablet 75 mg PO QAM levothyroxine 50 mcg tablet 50 mcg PO USEASDIRECTD Rx Instructions: 50 MCG MON-FRI, 75 MCG ON SAT AND SUN ferrous sulfate [Iron (ferrous sulfate)] 325 mg (65 mg iron) Tablet 325 mg PO 2XW valsartan 320 mg tablet 320 mg PO DAILY topiramate 50 mg tablet 50 mg PO BID One-A-Day Men's Multivitamin 400-20-300 mcg Tablet 1 tablet PO DAILY fluticasone furoate-vilanterol [Breo Ellipta] 100-25 mcg/dose blister with device 1 inh INHALATION QPM insulin degludec 100 unit/mL (3 mL) insulin pen 22 unit SUBCUT QAM Patient Comments: 15 UNITS IN AM Jardiance 10 mg Tablet 10 mg PO QAM Patient Comments: TAKES 25 MG IN AM rosuvastatin 20 mg tablet 20 mg PO QPM valsartan 40 mg tablet 40 mg PO DAILY silodosin 4 mg capsule 4 mg PO HS latanoprost 0.005 % drops 1 drp EACH EYE HS polyethylene glycol 3350 [Miralax] 17 gram powder in packet 17 g PO DAILY 14 Days Qty: 14 0RF Follow-up/Referrals: Manuel,SHARDA Caraballo [Primary Care Provider, Unknown] Time of Disposition: 19:12
== END 2025-07-23 19:20 | disposition home or self-care (01) ==
PROVIDERS: PCP Physician Assistant
DX: R30.0 Dysuria (principal); E11.9 Type 2 diabetes mellitus without complications; Z79.4 Long term (current) use of insulin; Z79.84 Long term (current) use of oral hypoglycemic drugs
CPT/HCPCS: 81003; 87086; 87147; 87186; 99213; G0463